=== PATIENT | male | born 1945 | race Caucasian/White ===

== ENCOUNTER 2016-12-20 05:12 | Inpatient (IN) | payer OTHER ==
[~2016-12-20] VITALS: Ht 177.8 cm; Wt 88.1 kg
[2016-12-20] VITALS (71 sets, daily range): BP systolic 87–179; BP diastolic 36–159; PULSE 64–96; TEMP 36.6–37.2; O2SAT 91–100; Ht 177.8 cm; Wt 88.1 kg
[2016-12-20] MEDS ORDERED: SODIUM CHLORIDE 0.9% 1000ML 1,000 ML IV STA (05:24)
[2016-12-20] MEDS ORDERED: ASPI81TA28 PO (05:35)
[2016-12-20] MEDS ORDERED: HYDR25TA4 PO (05:35)
[2016-12-20] MEDS ORDERED: ATEN50TA8 PO (05:35)
[2016-12-20] MEDS ORDERED: SIMV20TA2 PO (05:35)
[2016-12-20] MEDS ORDERED: ALLO300T2 PO (05:35)
[2016-12-20] MEDS ORDERED: LISI-461 PO (05:35)
[2016-12-20] MEDS ORDERED: ADENOSINE IV SOLN 3 MG/ML 2 ML VIAL ONE (05:42)
--- NOTE | 2016-12-20 05:45 | EMERGENCY ROOM VISIT NOTE ---
History Report prepared by Julius: Yasir Mendiola Under the Supervision of: Dr. Gem Hyde D.O. First contact with patient: 05:13 Chief Complaint: FALL Stated Complaint: FALL/SHORT OF BREATH History of Present Illness The patient is a 71 year old male who presents to the Emergency Room via [facility] with complaints of persistent shortness of breath that began yesterday. The patient states that he also began to experience vomiting, diarrhea, melena, and a cough yesterday as well. He denies any chest pain at this time. The patient does admit to drinking daily. His son notes that he is a heavy and frequent drinker as He was brought to the Emergency Department after multiple falling episodes this morning. Per nursing staff the patient fell out of bed and then fell again while attempting to use the restroom. He notes that he fell directly onto his back. He takes Baby Aspirin daily. 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 A total of 10 systems reviewed and were otherwise negative. Past Medical & Surgical Medical Problems: (1) Gout (2) HLD (hyperlipidemia) (3) HTN (hypertension) Surgical Problems: (1) Hx of colostomy Gout HLD (hyperlipidemia) HTN (hypertension) Family History Family history omitted secondary to age. Social History Drug Use: none Housing Status: lives alone Occupation Status: retired Current/Historical Medications Scheduled Allopurinol (Zyloprim), 300 MG PO DAILY Aspirin (Aspirin Ec), 81 MG PO DAILY Atenolol (Tenormin), 50 MG PO BID Hydrochlorothiazide (Hctz), 25 MG PO QAM Lisinopril (Lisinopril), 10 MG PO DAILY Simvastatin (Zocor), 20 MG PO QPM Allergies Coded Allergies: No Known Allergies (Unverified , 12/20/16) Physical Exam Vital Signs Date Time Temp Pulse Resp B/P (MAP) Pulse Ox O2 Delivery O2 Flow Rate FiO2 12/20/16 07:24 81 20 121/40 100 Nasal Cannula 4.0 12/20/16 06:47 77 12/20/16 06:32 36.1 12/20/16 06:31 127 29 116/102 98 Nasal Cannula 4.0 12/20/16 06:27 83/42 12/20/16 06:26 105 29 58/37 99 12/20/16 06:21 99/77 12/20/16 06:16 120/56 12/20/16 06:13 135/61 12/20/16 06:12 132 20 90 12/20/16 06:11 112/85 12/20/16 06:09 115/57 12/20/16 06:07 102/60 12/20/16 06:05 120/59 12/20/16 06:03 116/80 12/20/16 06:02 118/80 12/20/16 06:01 115/78 12/20/16 05:57 130/62 12/20/16 05:56 155/132 12/20/16 05:52 94/71 12/20/16 05:49 110/52 111/58 12/20/16 05:49 36.4 107 20 92 Room Air 12/20/16 05:47 136 12/20/16 05:42 137 24 96 Nasal Cannula 2.0 12/20/16 05:34 12/20/16 05:34 152 12/20/16 05:24 81/24 12/20/16 05:24 99 Physical Exam General: Appears in mild respiratory distress, slightly lethargic. HEENT: Head - normocephalic and atraumatic Pupils are equal, round, and reactive to light. Extraocular eye muscles are intact, and sclera are anicteric. Nose - moist nasal mucosa without discharge. Mouth - moist buccal mucosa. Oropharynx is nonerythematous and there is no tonsillar exudate or edema noted. Neck: Supple; no JVD, nuchal rigidity, cervical lymphadenopathy, or auscultated bruits. Heart: Regular rate and rhythm. There is a normal S1 and S2 with no murmurs, clicks, or gallops appreciated. Lungs: Breath sounds diminished in all weldon, with no wheezes, rales, or rhonchi. Abdomen: Soft, completely nontender, nondistended, with good bowel sounds. There are no palpable pulsatile masses or hepatosplenomegaly. There is no guarding, rigidity, or rebound noted. Extremities: The patient has an abrasion to the medial aspect of the right forearm. There is dried blood on the hands, mouth, legs. No evidence of cyanosis , clubbing, or edema. There are easily palpable peripheral pulses. Skin: warm, pale, and diaphoretic with good turgor and no rashes. Medical Decision & Procedures ER Provider Diagnostic Interpretation: Radiology results as stated below per my review: PORTABLE CHEST X-RAY: X-ray reveals no cardiomegaly, no pleural effusions. Laboratory Results 12/20/16 05:33 Red Blood Count 3.52, Mean Corpuscular Volume 94.3, Mean Corpuscular Hemoglobin 33.0, Mean Corpuscular Hemoglobin Concent 34.9, Mean Platelet Volume 10.8, Neutrophils (%) (Auto) 62.2, Lymphocytes (%) (Auto) 30.2, Monocytes (%) (Auto) 5.2, Eosinophils (%) (Auto) 1.2, Basophils (%) (Auto) 1.0, Neutrophils # (Auto) 5.73, Lymphocytes # (Auto) 2.78, Monocytes # (Auto) 0.48, Eosinophils # (Auto) 0.11, Basophils # (Auto) 0.09 12/20/16 05:33 Test 12/20/16 05:33 12/20/16 05:35 12/20/16 05:40 12/20/16 06:14 White Blood Count 9.21 K/uL (4.8-10.8) Red Blood Count 3.52 M/uL (4.7-6.1) Hemoglobin 11.6 g/dL (14.0-18.0) Hematocrit 33.2 % (42-52) Mean Corpuscular Volume 94.3 fL (80-100) Mean Corpuscular Hemoglobin 33.0 pg (25-34) Mean Corpuscular Hemoglobin Concent 34.9 g/dl (32-36) Platelet Count 129 K/uL (130-400) Mean Platelet Volume 10.8 fL (7.4-10.4) Neutrophils (%) (Auto) 62.2 % Lymphocytes (%) (Auto) 30.2 % Monocytes (%) (Auto) 5.2 % Eosinophils (%) (Auto) 1.2 % Basophils (%) (Auto) 1.0 % Neutrophils # (Auto) 5.73 K/uL (1.4-6.5) Lymphocytes # (Auto) 2.78 K/uL (1.2-3.4) Monocytes # (Auto) 0.48 K/uL (0.11-0.59) Eosinophils # (Auto) 0.11 K/uL (0-0.5) Basophils # (Auto) 0.09 K/uL (0-0.2) RDW Standard Deviation 52.2 fL (36.4-46.3) RDW Coefficient of Variation 15.3 % (11.5-14.5) Immature Granulocyte % (Auto) 0.2 % Immature Granulocyte # (Auto) 0.02 K/uL (0.00-0.02) Prothrombin Time 17.4 SECONDS (9.0-12.0) Prothromb Time International Ratio 1.6 (0.9-1.1) Activated Partial Thromboplast Time 28.4 SECONDS (21.0-31.0) Partial Thromboplastin Ratio 1.1 Estimated GFR () 43.2 Estimated GFR (Non- 37.3 BUN/Creatinine Ratio 19.6 (10-20) Calcium Level 9.3 mg/dl (8.5-10.1) Total Bilirubin 2.2 mg/dl (0.2-1) Direct Bilirubin 0.7 mg/dl (0-0.2) Aspartate Amino Transf (AST/SGOT) 53 U/L (15-37) Alanine Aminotransferase (ALT/SGPT) 28 U/L (12-78) Alkaline Phosphatase 56 U/L (45-117) Total Creatine Kinase 44 U/L (39-308) Creatine Kinase MB 1.6 ng/ml (0.5-3.6) Creatine Kinase MB Ratio 3.6 (0-3.0) Troponin I 0.098 ng/ml (0-0.045) Pro-B-Type Natriuretic Peptide 427 pg/ml (0-900) Total Protein 7.3 gm/dl (6.4-8.2) Albumin 2.7 gm/dl (3.4-5.0) Lipase 269 U/L (73-393) Bedside Hemoglobin 11.6 g/dl (14.0-18.0) Bedside Hematocrit 34 % (42-52) Bedside Sodium 136 mEq/L (135-144) Bedside Potassium 4.0 mEq/L (3.3-5.0) Bedside Chloride 91 mEq/L (101-112) Bedside Total CO2 30 mEq/l (24-31) Anion Gap 21.0 mmol/L (16-25) Bedside Blood Urea Nitrogen 39 mg/dl (7-18) Bedside Creatinine 1.4 mg/dl (0.6-1.3) Bedside Glucose (other) 127 mg/dl (70-99) Bedside Ionized Calcium (Nagi) 1.07 mmol/l (1.12-1.32) Bedside Lactic Acid Venous 8.24 mmol/L (0.90-1.70) Lactic Acid Level 8.9 mmol/L (0.4-2.0) Test 12/20/16 07:33 Laboratory results per my review. Medications Administered Medications (Trade) Dose Ordered Sig/Angy Route Start Time Stop Time Status Last Admin Dose Admin Sodium Chloride 1,000 ml @ 999 mls/hr Q1H1M STAT IV 12/20/16 05:24 12/20/16 06:24 DC 12/20/16 05:24 999 MLS/HR Adenosine (Adenosine IV) 18 mg STK-MED ONCE .ROUTE 12/20/16 05:42 12/20/16 05:43 DC 12/20/16 05:46 18 MG Diltiazem HCl (Cardizem Inj) 25 mg STK-MED ONCE .ROUTE 12/20/16 05:50 12/20/16 05:51 DC 12/20/16 05:55 25 MG Ondansetron HCl (Zofran Inj) 4 mg STK-MED ONCE .ROUTE 12/20/16 06:27 12/20/16 06:28 DC 12/20/16 06:27 4 MG Pantoprazole Sodium 40 mg/ Dextrose 110 ml @ 20 mls/hr Q5H IV 12/20/16 06:30 12/20/16 11:29 12/20/16 06:52 20 MLS/HR Procedure Medications Ordered: Sodium Chloride, Adenosine X 2, Cardizem, Zofran, Pantoprazole. ECG Indication: SOB/dyspnea Rate (beats per minute): 105 Rhythm: sinus tachycardia Findings: no acute ischemic change, no ectopy Change: Repeat EKG: Sinus Tachycardia 138, ST-segment depression laterally and inferiorly. Third EKG: NSR at 78, ST segment depression and T-wave inversions in the lateral leads. ED Course 0516: The patient was evaluated in room B9. A complete history and physical exam was performed. I received report from EMS. Nursing staff were obtaining a twelve-lead EKG and laboratory studies. A twelve-lead EKG was obtained as described above. 0523: While examining the patient his heart rhythm converted from a sinus tachycardia at 105 to a SVT at 140 beats per minute and the patient lost consciousness. He was moved to room B1. 0534: I discussed the case with the patient's son over the phone at this time. He is on his way to the hospital. 0542: (approximate timing) The patient was given 6 mg of Adenosine with no result. 0545: (approximate timing) the patient was given 12 mg of Adenosine which revealed an underlying Atrial Flutter. 0552: I ordered Versed 5 mg at this time in preparation for synchronized cardioversion 0556: The patient will undergo synchronized cardioversion at 100 Star. The patient is on both monitors. 0557: The patient's blood pressure came up nicely at this time on its own . Cardioversion will be held at this time. Rate has come down slightly as well. 0558: The patient will receive Cardizem now. 10 mg of Cardizem is being pushed now. 0603: The patient's POC without Lactic Acid resulted at 8.24 0604: Patient's blood pressure is 116/80, pulse 133 bpm. 0605: 10 more mg of Cardizem is being pushed now. 0622: The patient's HR is 100 and blood pressure is 115/82. 0623: The nurse identified that the patient's stool is heme positive at this time. 0623: The patient's Troponin resulted at 0.098. 0624: I discussed the case with the patient's son at bedside at this time. The patient also informed me on the specifics of his current symptoms. He states that the vomiting and diarrhea began yesterday and became black. He also experienced dizziness. This morning when he got out of bed he passed out. He developed the shortness of breath after passing out. 0625: The patient began to actively vomit at this time. I will order Zofran. 0627: Ordered Zofran mg IV. 0630: Ordered Pantoprazole 110 mL @ 20 mL/hr IV. 0636: I discussed the case with DrIvon STRONG Filtrose Crusher at this time. 0641: The patient spontaneously converted out of SVT at this time. 0644: The patient is in normal sinus rhythm at this time, he has no complaints of chest pain. 0655: I discussed the case with the Critical Care PA at this time. 0711: I discussed the case with Dr. Vamshi Aguilar. She will evaluate the patient for further treatment. The patient remains stable at this time. Medical Decision The patient is a 71 year old Male who presents to the Emergency Department for shortness of breath. Differential Diagnosis includes: Gastrointestinal bleed, hypotension, pneumonia , CHF, pulmonary embolism. I-STAT results were reviewed and show a Glucose of 127, BUN of 39, Creatinine of 1.4, and hemoglobin of 11.6. Laboratory Studies were reviewed and show; White count of 9.2, hemoglobin of 11.6, platelet count of 129, troponin of 0.09, lipase of 269, total bilirubin of 2.2, direct bilirubin of 0.7, AST of 53, ALT 28, Glucose of 130, and INR of 1.6 The patient developed nausea, vomiting, and diarrhea yesterday. He then noted that his diarrhea was dark in color and his vomit was [id number]. He denies ever having GI bleeding like this in the past. He does admit to daily alcohol use and aspirin use. The patient presented in a normal sinus rhythm with stable blood pressure. He quickly developed atrial flutter with a rapid ventricular response and episodes of hypotension. This seemed to be corrected nicely with normal saline bolus. Cardizem seemed to control the patient's rate. He then spontaneously converted back to normal sinus rhythm. The patient was placed on a Protonix drip. I discussed the case with the engineering professor and the hospitalist and he will be cared for in the ICU. Consults Time Called: 06 Consulting Physician: Dr. Adrian STRONG Filtrose Crusher Returned Call: 0636 I discussed the case with Dr. Adrian STRONG Filtrose Crusher at this time. Additional Consults: Time Called: 07 Returned Call: 0711 Additional Comments: I discussed the case with Dr. Vamshi Aguilar. She will evaluate the patient for further treatment. Impression Primary Impression: GI bleed Additional Impression: Atrial flutter with rapid ventricular response Critical Care I have personally spent greater than 90 minutes of critical care time in the direct management of this patient. This includes bedside care, interpretation of diagnostic studies, and testing, discussion with consultants, patient, and family members, and other required patient management activities. This 90 minutes is in excess of all separately billable procedures. Scribe Attestation The scribe's documentation has been prepared under my direction and personally reviewed by me in its entirety. I confirm that the note above accurately reflects all work, treatment, procedures, and medical decision making performed by me. Departure Information Dispostion Being Evaluated By Hospitalist Patient Instructions My [facility] Problem Qualifiers
[2016-12-20] MEDS ORDERED: DILTIAZEM HCL 5 MG/ML 5 ML VIAL ONE (05:50)
[2016-12-20 05:51] LABS: BASO ABS # 0.09 K/uL (0-0.2); COMPLETE YES; EOS % 1.2 %; HEMATOCRIT 33.2 % (42-52); IG% 0.2 %; LYMPH % 30.2 %; LYMPH ABS # 2.78 K/uL (1.2-3.4); MEAN CELL VOLUME 94.3 fL (80-100); MEAN CORPUSCULAR HGB CONC 34.9 g/dl (32-36); MEAN PLATELET VOLUME 10.8 fL (7.4-10.4); MONO % 5.2 %; NEUT % 62.2 %; PLATELET COUNT 129 K/uL (130-400); RED BLOOD COUNT 3.52 M/uL (4.7-6.1); WHITE BLOOD COUNT 9.21 K/uL (4.8-10.8)
[2016-12-20] MEDS ORDERED: MIDAZOLAM HCL 5 MG/ML 2ML VIAL ONE (05:52)
[2016-12-20] MEDS ORDERED: RAPID SEQUENCE INDUCTION BAG ONE (05:54)
[2016-12-20 05:55] LABS: INR 1.6 (0.9-1.1); PARTIAL THROMBOPLASTIN RATIO 1.1; PROTHROMBIN TIME (PATIENT) 17.4 SECONDS (9.0-12.0)
[2016-12-20 06:05] LABS: ALT/SGPT 28 U/L (12-78); BLOOD UREA NITROGEN 35 mg/dl (7-18); BUN/CREATININE RATIO 19.6 (10-20); CALCIUM 9.3 mg/dl (8.5-10.1); CARBON DIOXIDE 27 mmol/L (21-32); CHLORIDE 93 mmol/L (98-107); GLUCOSE 130 mg/dl (70-99); SODIUM 137 mmol/L (136-145)
[2016-12-20 06:14] LABS: ISTAT CREATININE 1.4 mg/dl (0.6-1.3); ISTAT HEMOGLOBIN 11.6 g/dl (14.0-18.0); ISTAT IONIZED CALCIUM 1.07 mmol/l (1.12-1.32)
[2016-12-20 06:25] LABS: ALKALINE PHOSPHATASE 56 U/L (45-117); AST/SGOT 53 U/L (15-37); CKMB/CK RATIO 3.6 (0-3.0)
[2016-12-20] MEDS ORDERED: ONDANSETRON INJ 2 MG/ML 2 ML VIAL ONE ×2 (06:27→19:15)
--- NOTE | 2016-12-20 06:27 | DIAGNOSTIC IMAGING REPORT ---
CHEST ONE VIEW PORTABLE CLINICAL HISTORY: sob/cough dyspnea COMPARISON STUDY: No previous studies for comparison. FINDINGS: The bones soft tissues and hemidiaphragms are normal. The cardiomediastinal silhouette is normal. The lungs are clear. The pulmonary vasculature is normal. IMPRESSION: Negative chest. Electronically signed by: Cholo Aparicio M.D. 12/20/2016 6:26 AM Dictated Date/Time: 12/20/2016 6:25 AM
[2016-12-20] MEDS ORDERED: PANTOprazole INJ 40 MG in DEXTROSE 5% 100ML 100 ML IV SCH (06:30)
--- NOTE | 2016-12-20 07:31 | Critical Care Consultation ---
Critical Care Consultation Date of Consultation: Dec 20, 2016. Attending Physician: Reason for Consultation: GI Bleed History of Present Illness Apolinar Maya is a 71yo Male who presents to the [facility] after calling 911 status post loss of consciousness while using the restroom. He states that yesterday he began feeling nauseous and vomiting; later began having diarrhea. Throughout the day the vomit and diarrhea became dark black. While he was able to rest through the night he awoke to use the restroom this morning and again began vomiting and experiencing dark black stool. During this period of time he states that he passed out and when he awoke called 911. Patient's past medical history is limited secondary to no prior visits to [facility]. He states that he is treated by Dr. Benitez in the [facility] area. Patient does inform me that approximately 10 years ago he was diagnosed with colon cancer and underwent partial colectomy; to which he has an abdominal vertical incision with what appears to be a small hernia. He has had colonoscopies every 2-3 years since with no findings. He states that during the diagnoses of cancer he believes he had an EGD with no findings. He recalls years ago having some stomach ulcers; but is not currently on any treatment or experiencing symptoms currently. Patient is a heavy drinker and drinks daily. While in the emergency department patient appeared to lose consciousness and was noted to be in what appeared to be supraventricular tachycardia. Adenosine was given in preparation for cardioversion as patient's blood pressures dropped. With heart rate slowing it was noted patient was in new A. fib RVR and he was given Cardizem. Cardioversion was not needed as patient's blood pressure rebounded and he ultimately flipped into normal sinus rhythm. Patient had home medications with him during my exam. Notably he takes a beta bhupendra, ABBY inhibitor, statin, and hydrochlorothiazide. Patient denies previous history of MD, stroke, A. fib, diabetes, or kidney disease. He believes that Dr. Benitez gave him the medications listed here secondary to a complaint of chest pain years ago. He and his son do not believe he has ever had a heart attack or a cardiac catheterization. Patient complains of chills and shortness of breath. He does state that during his episodes of vomiting the night before he was feverish and diaphoretic; neither of which does he experience now. He denies dizziness, lightheadedness, headache or change of vision. He denies cough or history of COPD/emphysema. Patient denies current nausea, upset stomach. Change in bowel habits as listed above. No change in bladder habits. He denies numbness or tingling of any extremities. Family History Noncontributory Social History Smoking Status: Former Smoker Smokeless Tobacco Use: No Alcohol Use: heavy (Drinks Daily) Drug Use: none Housing Status: lives alone (Son is next door neighbor. ) Occupation Status: retired Allergies Coded Allergies: No Known Allergies (Unverified , 12/20/16) Home Medications Scheduled Allopurinol (Zyloprim), 300 MG PO DAILY Aspirin (Aspirin Ec), 81 MG PO DAILY Atenolol (Tenormin), 50 MG PO BID Hydrochlorothiazide (Hctz), 25 MG PO QAM Lisinopril (Lisinopril), 10 MG PO DAILY Simvastatin (Zocor), 20 MG PO QPM Current Inpatient Medications Current Inpatient Medications Medications (Trade) Dose Ordered Sig/Angy Route Start Time Stop Time Status Last Admin Dose Admin Pantoprazole Sodium 40 mg/ Dextrose 110 ml @ 20 mls/hr Q5H IV 12/20/16 06:30 12/20/16 11:29 12/20/16 06:52 20 MLS/HR Review of Systems 12 systems reviewed and negative other than previously mentioned in the HPI. Physical Exam Date Time Temp Pulse Resp B/P (MAP) Pulse Ox O2 Delivery O2 Flow Rate FiO2 12/20/16 06:47 77 12/20/16 06:32 36.1 12/20/16 06:31 127 29 116/102 98 Nasal Cannula 4.0 12/20/16 06:27 83/42 12/20/16 06:26 105 29 58/37 99 12/20/16 06:21 99/77 12/20/16 06:16 120/56 12/20/16 06:13 135/61 12/20/16 06:12 132 20 90 12/20/16 06:11 112/85 12/20/16 06:09 115/57 12/20/16 06:07 102/60 12/20/16 06:05 120/59 12/20/16 06:03 116/80 12/20/16 06:02 118/80 12/20/16 06:01 115/78 12/20/16 05:57 130/62 12/20/16 05:56 155/132 12/20/16 05:52 94/71 12/20/16 05:49 110/52 111/58 12/20/16 05:49 36.4 107 20 92 Room Air 12/20/16 05:47 136 12/20/16 05:42 137 24 96 Nasal Cannula 2.0 12/20/16 05:34 12/20/16 05:34 152 12/20/16 05:24 81/24 12/20/16 05:24 99 Vital Signs - as noted Laboratory Data - as noted Physical Exam: General - NAD, appears chilled wrapped in a multitude of blankets and shivering Eyes - PERRL, EOMI No icterus, gaze conjugate ENT - Mucosa dry, oral cavity covered in dried blood, no lesions or candidiasis Neck - Supple, trachea midline, no masses or lymphadenopathy, no JVD or bruits Lungs - No paradoxical chest wall movement, coarse breath sounds to the bases bilaterally with wheezing noted to the right lung weldon.No rales, or rhonchi Heart - Reg rate and rhythm, No murmur, rubs, clicks, or gallops appreciated Abdomen - BS Absent, no bruits noted, tympanic to percussion, soft, nontender, nondistended, no organomegaly, 5" vertical incision with small hernia noted Extremities - No edema, pedal pulses intact Neuro - A&O X 4 Strength extremities equal and appropriate bilaterally Reflexes: normal and equal CN:PERRL, EOMI, no facial asymmetry, uvula/tongue midline, no unilateral neuro findings Laboratory Results Last 24 Hours Test 12/20/16 05:33 12/20/16 05:35 12/20/16 05:40 12/20/16 06:14 White Blood Count 9.21 K/uL Red Blood Count 3.52 M/uL Hemoglobin 11.6 g/dL Hematocrit 33.2 % Mean Corpuscular Volume 94.3 fL Mean Corpuscular Hemoglobin 33.0 pg Mean Corpuscular Hemoglobin Concent 34.9 g/dl Platelet Count 129 K/uL Mean Platelet Volume 10.8 fL Neutrophils (%) (Auto) 62.2 % Lymphocytes (%) (Auto) 30.2 % Monocytes (%) (Auto) 5.2 % Eosinophils (%) (Auto) 1.2 % Basophils (%) (Auto) 1.0 % Neutrophils # (Auto) 5.73 K/uL Lymphocytes # (Auto) 2.78 K/uL Monocytes # (Auto) 0.48 K/uL Eosinophils # (Auto) 0.11 K/uL Basophils # (Auto) 0.09 K/uL RDW Standard Deviation 52.2 fL RDW Coefficient of Variation 15.3 % Immature Granulocyte % (Auto) 0.2 % Immature Granulocyte # (Auto) 0.02 K/uL Prothrombin Time 17.4 SECONDS Prothromb Time International Ratio 1.6 Activated Partial Thromboplast Time 28.4 SECONDS Partial Thromboplastin Ratio 1.1 Sodium Level 137 mmol/L Potassium Level 4.0 mmol/L Chloride Level 93 mmol/L Carbon Dioxide Level 27 mmol/L Anion Gap 17.0 mmol/L 21.0 mmol/L Blood Urea Nitrogen 35 mg/dl Creatinine 1.80 mg/dl Estimated GFR () 43.2 Estimated GFR (Non- 37.3 BUN/Creatinine Ratio 19.6 Random Glucose 130 mg/dl Calcium Level 9.3 mg/dl Total Bilirubin 2.2 mg/dl Direct Bilirubin 0.7 mg/dl Aspartate Amino Transf (AST/SGOT) 53 U/L Alanine Aminotransferase (ALT/SGPT) 28 U/L Alkaline Phosphatase 56 U/L Total Creatine Kinase 44 U/L Creatine Kinase MB 1.6 ng/ml Creatine Kinase MB Ratio 3.6 Troponin I 0.098 ng/ml Pro-B-Type Natriuretic Peptide 427 pg/ml Total Protein 7.3 gm/dl Albumin 2.7 gm/dl Lipase 269 U/L Bedside Hemoglobin 11.6 g/dl Bedside Hematocrit 34 % Bedside Sodium 136 mEq/L Bedside Potassium 4.0 mEq/L Bedside Chloride 91 mEq/L Bedside Total CO2 30 mEq/l Bedside Blood Urea Nitrogen 39 mg/dl Bedside Creatinine 1.4 mg/dl Bedside Glucose (other) 127 mg/dl Bedside Ionized Calcium (Nagi) 1.07 mmol/l Bedside Lactic Acid Venous 8.24 mmol/L Lactic Acid Level 8.9 mmol/L Diagnostic Results CHEST ONE VIEW PORTABLE CLINICAL HISTORY: sob/cough dyspnea COMPARISON STUDY: No previous studies for comparison. FINDINGS: The bones soft tissues and hemidiaphragms are normal. The cardiomediastinal silhouette is normal. The lungs are clear. The pulmonary vasculature is normal. IMPRESSION: Negative chest. Electronically signed by: Cholo Aparicio M.D. 12/20/2016 6:26 AM Dictated Date/Time: 12/20/2016 6:25 AM Assessment & Plan (1) GI bleed (2) Atrial flutter with rapid ventricular response (3) HTN (hypertension) (4) HLD (hyperlipidemia) Reason Critically Ill: Patient is an 71-year-old male who is transferred to the ICU for gastrointestinal bleeding. PLAN: GI/Nutrition: * Protonix drip * Follow Coagulation * Type and Cross * Consult GI Neuro: * No Current Findings * Monitor for changes Resp: * Supplemental oxygen as required * On 4L nasal cannula currently, adequate saturations CV: * A. Fib RVR in ED now converted * Monitor on Telemetry * Elevated Troponin, Trend * Continue home medications Fluids/Renal: * Possible HAYLEY: Cr 1.4 (Unknown Baseline) * Continue NSS @ 100 * Monitor labs & Electrolytes ID: * Afebrile * WBC: 9.21 * Lactic 8.9 * Obtain Procalcitonin Heme: * 11.6/34 * Plts: 129 * Coags: 17.4/1.6 Aptt 28.4 Endocrine: * Accu-Checks per protocol, started insulin infusion for 2 blood sugars greater than 180 * No Known Diagnosis of DM or Thyroid Dz * Check TSH this admission in setting of new onset A. Fib RVR CCT: 35 Minutes; This time is exclusive of all separately billable procedures. Thank you for involving us in the care of this patient. Please refer to Dr. Luis Campbell's addendum for further recommendations. I have personally evaluated and examined this patient. I agree with assessment and plan of Rosie Bermudez PA-C. PLAN: Neuro: At high risk for withdrawal, empiric Librium, drinks several bottles of beer daily reports he has gone 5 days without alcohol consumption approximately 1-2 months ago, denies history of withdrawals Resp: History of tobacco abuse, nebs and O2 as needed CV: A. fib A flutter with RVR, currently weight rate controlled adequate blood pressure. Continue resuscitation Fluids/Renal: Maintenance fluids at 75, will be getting additional medication and additional fluids. ID: Rocephin prophylaxis for possible variceal bleeding GI/Nutrition: Gastroenterology consulted, octreotide PPI infusions Heme: Acute blood loss anemia, holding blood transfusion at this point his hemoglobin greater than 10, checking H&H every 6 Endocrine: TSH within normal limits, Accu-Cheks per protocol
[2016-12-20] MEDS ORDERED: MECLIZINE HCL 25 MG TAB PO STA (07:45)
[2016-12-20] MEDS ORDERED: LORAZEPAM 2 MG/ML 1 ML VIAL IV PRN (08:30)
[2016-12-20] MEDS ORDERED: OCTREOTIDE IV BOLUS & DRIP IV STA (08:39)
[2016-12-20] MEDS ORDERED: SODIUM CHLORIDE 0.9% 1000ML 1,000 ML IV SCH (08:45)
[2016-12-20] MEDS ORDERED: METOPROLOL TARTRATE 1 MG/ML VIAL IV PRN (08:45)
--- NOTE | 2016-12-20 09:01 | History and Physical ---
History & Physical Date & Time of Service: Dec 20, 2016 at 08:40 Chief Complaint: Fall/Short Of Breath Primary Care Physician: Luis Eduardo Benitez M.D. History of Present Illness Source: patient, family Mr. Maya is a 71 y/o male with PMHx of ETOH Abuse, HTN, HLD, S/P Colon Resection (denies cancer?), and possible H/O PUD who presents to the ED by EMS with persistent SOB and melena/hemoptysis. He reports symptoms began yesterday with nausea, vomiting, diarrhea. Reporting emesis and BMs nearly every other hour. Reporting black emesis and stool. He states he has never had anything like this before. Think he did have a gastric ulcer in the past but could not give details. Also is S/P partial colon resection (approx. 10-12 years ago) due to question of CA but he states it was non-cancerous. States he has regularly colonoscopies for monitoring. He reports with frequent emesis and diarrhea he developed generalized fatigue and SOB. This AM, he reports that he fell out of bed and then tried to ambulate to the bathroom and had a syncopal episode. Patient has a long history of ETOH use with drinking 4-5 "bottles" beer a day. He takes a baby ASA daily but denies other NSAID use. He denies blood thinners. He denies a cardiac history except for HTN. He follows with Dr. Benitez. In the ED, patient was initially stable but developed an A Flutter with RVR which converted to SVT at rates on 160-170s. Rhythm was treated with Adenosine and Cardizem and was hypotensive. Patient was prepared for cardioversion but spontaneously converted to NSR and is currently in this rhythm and maintaining an adequate BP. Hgb 11.6. Lactate 8.9. INR 1.6 and platelets 129. Cr. 1.8. AST 53 and T bili 2.2. Patient will be admitted to ICU for GI bleed. Past Medical/Surgical History Medical Problems: (1) Gout Status: Chronic (2) HLD (hyperlipidemia) Status: Chronic (3) HTN (hypertension) Status: Chronic Surgical Problems: (1) Hx of colostomy Status: Resolved Family History Hypertension Social History Smoking Status: Current Every Day Smoker (1 ppd) Smokeless Tobacco Use: No Alcohol Use: heavy (Drinks Daily - 4-5 bottles of beer) Drug Use: none Occupational Status: retired Allergies Coded Allergies: No Known Allergies (Unverified , 12/20/16) Home Medications Scheduled Allopurinol (Zyloprim), 300 MG PO DAILY Aspirin (Aspirin Ec), 81 MG PO DAILY Atenolol (Tenormin), 50 MG PO BID Hydrochlorothiazide (Hctz), 25 MG PO QAM Lisinopril (Lisinopril), 10 MG PO DAILY Simvastatin (Zocor), 20 MG PO QPM Review of Systems Constitutional: + weakness (generalized), + fatigue, No fever, No chills Eyes: No worsening of vision Respiratory: + shortness of breath, + hemoptysis, No cough Cardiovascular: No chest pain, No palpitations Abdomen: + nausea (RESOLVED), + vomiting, + diarrhea, + GI bleeding, No pain Musculoskeletal: No swelling, No calf pain Genitourinary - Male: No dysuria Neurologic: + problem reported (fall x 1 and syncopal episode x 1) Psychiatric: + substance abuse (ETOH) Integumentary: No rash Physical Exam Vital Signs Date Time Temp Pulse Resp B/P (MAP) Pulse Ox O2 Delivery O2 Flow Rate FiO2 12/20/16 08:02 71 20 136/53 98 Nasal Cannula 4.0 12/20/16 07:55 74 20 140/52 12/20/16 07:24 81 20 121/40 100 Nasal Cannula 4.0 12/20/16 06:47 77 12/20/16 06:32 36.1 12/20/16 06:31 127 29 116/102 98 Nasal Cannula 4.0 12/20/16 06:27 83/42 12/20/16 06:26 105 29 58/37 99 12/20/16 06:21 99/77 12/20/16 06:16 120/56 12/20/16 06:13 135/61 12/20/16 06:12 132 20 90 12/20/16 06:11 112/85 12/20/16 06:09 115/57 12/20/16 06:07 102/60 12/20/16 06:05 120/59 12/20/16 06:03 116/80 12/20/16 06:02 118/80 12/20/16 06:01 115/78 12/20/16 05:57 130/62 12/20/16 05:56 155/132 12/20/16 05:52 94/71 12/20/16 05:49 110/52 111/58 12/20/16 05:49 36.4 107 20 92 Room Air 12/20/16 05:47 136 12/20/16 05:42 137 24 96 Nasal Cannula 2.0 12/20/16 05:34 12/20/16 05:34 152 12/20/16 05:24 81/24 12/20/16 05:24 99 General Appearance: WD/WN, no apparent distress Head: normocephalic, atraumatic Eyes: sclerae normal ENT: hearing grossly normal, + pertinent finding (dried blood in mouth and lips ; oral mucosa dry) Neck: supple, no JVD, trachea midline Respiratory/Chest: no respiratory distress, no accessory muscle use, + pertinent finding (course breath sounds) Cardiovascular: regular rate, rhythm, no gallop, + systolic murmur Abdomen/GI: non tender, soft, + abnormal bowel sounds (hypoactive), + distended (mildly), + pertinent finding (negative caput medusa; midline surgical incision well-approximated) Extremities/Musculoskelatal: no calf tenderness, no pedal edema Neurologic/Psych: alert, oriented x 3 Skin: warm/dry Diagnostics Laboratory Results Results Past 24 Hours Test 12/20/16 05:33 12/20/16 05:35 12/20/16 05:40 12/20/16 06:14 Range/Units White Blood Count 9.21 4.8-10.8 K/uL Red Blood Count 3.52 4.7-6.1 M/uL Hemoglobin 11.6 14.0-18.0 g/dL Hematocrit 33.2 42-52 % Mean Corpuscular Volume 94.3 80-100 fL Mean Corpuscular Hemoglobin 33.0 25-34 pg Mean Corpuscular Hemoglobin Concent 34.9 32-36 g/dl Platelet Count 129 130-400 K/uL Mean Platelet Volume 10.8 7.4-10.4 fL Neutrophils (%) (Auto) 62.2 % Lymphocytes (%) (Auto) 30.2 % Monocytes (%) (Auto) 5.2 % Eosinophils (%) (Auto) 1.2 % Basophils (%) (Auto) 1.0 % Neutrophils # (Auto) 5.73 1.4-6.5 K/uL Lymphocytes # (Auto) 2.78 1.2-3.4 K/uL Monocytes # (Auto) 0.48 0.11-0.59 K/uL Eosinophils # (Auto) 0.11 0-0.5 K/uL Basophils # (Auto) 0.09 0-0.2 K/uL RDW Standard Deviation 52.2 36.4-46.3 fL RDW Coefficient of Variation 15.3 11.5-14.5 % Immature Granulocyte % (Auto) 0.2 % Immature Granulocyte # (Auto) 0.02 0.00-0.02 K/uL Prothrombin Time 17.4 9.0-12.0 SECONDS Prothromb Time International Ratio 1.6 0.9-1.1 Activated Partial Thromboplast Time 28.4 21.0-31.0 SECONDS Partial Thromboplastin Ratio 1.1 Sodium Level 137 136-145 mmol/L Potassium Level 4.0 3.5-5.1 mmol/L Chloride Level 93 98-107 mmol/L Carbon Dioxide Level 27 21-32 mmol/L Anion Gap 17.0 21.0 16-25 mmol/L Blood Urea Nitrogen 35 7-18 mg/dl Creatinine 1.80 0.60-1.40 mg/dl Estimated GFR () 43.2 Estimated GFR (Non- 37.3 BUN/Creatinine Ratio 19.6 10-20 Random Glucose 130 70-99 mg/dl Calcium Level 9.3 8.5-10.1 mg/dl Total Bilirubin 2.2 0.2-1 mg/dl Direct Bilirubin 0.7 0-0.2 mg/dl Aspartate Amino Transf (AST/SGOT) 53 15-37 U/L Alanine Aminotransferase (ALT/SGPT) 28 12-78 U/L Alkaline Phosphatase 56 45-117 U/L Total Creatine Kinase 44 39-308 U/L Creatine Kinase MB 1.6 0.5-3.6 ng/ml Creatine Kinase MB Ratio 3.6 0-3.0 Troponin I 0.098 0-0.045 ng/ml Pro-B-Type Natriuretic Peptide 427 0-900 pg/ml Total Protein 7.3 6.4-8.2 gm/dl Albumin 2.7 3.4-5.0 gm/dl Lipase 269 73-393 U/L Bedside Hemoglobin 11.6 14.0-18.0 g/dl Bedside Hematocrit 34 42-52 % Bedside Sodium 136 135-144 mEq/L Bedside Potassium 4.0 3.3-5.0 mEq/L Bedside Chloride 91 101-112 mEq/L Bedside Total CO2 30 24-31 mEq/l Bedside Blood Urea Nitrogen 39 7-18 mg/dl Bedside Creatinine 1.4 0.6-1.3 mg/dl Bedside Glucose (other) 127 70-99 mg/dl Bedside Ionized Calcium (Nagi) 1.07 1.12-1.32 mmol/l Bedside Lactic Acid Venous 8.24 0.90-1.70 mmol/L Thyroid Stimulating Hormone (TSH) 2.750 0.300-4.500 uIu/ml Lactic Acid Level 8.9 0.4-2.0 mmol/L Test 12/20/16 08:20 Range/Units Microbiology Results 12/20/16 Blood Culture, Received Pending 12/20/16 Blood Culture, Received Pending Diagnostic Radiology CHEST ONE VIEW PORTABLE CLINICAL HISTORY: sob/cough dyspnea COMPARISON STUDY: No previous studies for comparison. FINDINGS: The bones soft tissues and hemidiaphragms are normal. The cardiomediastinal silhouette is normal. The lungs are clear. The pulmonary vasculature is normal. IMPRESSION: Negative chest. EKG Poor data quality, interpretation may be adversely affected Normal sinus rhythm ST & T wave abnormality, consider inferior ischemia ST & T wave abnormality, consider anterolateral ischemia Abnormal ECG When compared with ECG of 20-DEC-2016 05:40, (unconfirmed) Vent. rate has decreased BY 60 BPM QRS duration has decreased ST no longer depressed in Inferior leads ST no longer depressed in Anterolateral leads Impression Assessment and Plan Mr. Maya is a 71 y/o male with PMHx of ETOH Abuse, HTN, HLD, S/P Colon Resection (denies cancer?), and possible H/O PUD who presents to the ED by EMS with persistent SOB and melena/hemoptysis. Acute Blood Loss Anemia 2/2 Hemoptysis and Melena: Concern for Varices vs Ulcer - Hemoglobin at 11.6 acutely but anticipate this will drop - was hypotensive but likely related to cardiac rhythm - Mildly low platelets with elevated INR not on blood thinners - Octreotide and Protonix bolus/gtt - Serial H&H with type/cross - blood transfusion consent obtained - Ceftriaxone 2 g IV daily - Consult GI - discussed case with Dr. Mi -- Will initiated Octreotide, PPI, and possible scope later today A. Flutter with RVR and SVT: RESOLVED - Currently NSR - Received Adenosine and Cardizem with conversion without need for cardioversion Elevated Troponin: - Likely demand ischemia from SVT/A Flutter RVR and acute blood loss - Serial troponins Elevated Lactic Acid: - 8.9 and trend Possible HAYLEY: Unknown baseline - Hydrate with NSS at 100 mL/hr and monitor ETOH Abuse: - AWSS protocol with daily banana bag, Librium, PRN Ativan - Acute hepatitis panel and current ETOH level HTN: - Hold home medication of Lisinopril, Atenolol, and HCTZ - Metoprolol IV PRN for rebound HLD: - Hold simvastatin DVT Prophylaxis: FRANC/SCDS Code Status: FULL RESUSCITATION Disposition: Monitor in ICU - discussed case with Dr. Campbell and Dr. Mi - Possible scope later today - plan for blood transfusion if necessary - services mgr consult - when not critical will place PT/OT evaluations Level of Care Critical Care Resuscitation Status FULL RESUSCITATION VTE Prophylaxis VTE Risk Assessment Done? Y/N: Yes Risk Level: Moderate Given or contraindicated: TKunal Stockings, SCD's Reviewed: Pt Seen/Exam by Me History Pt is s/p EGD. He is not giving much information right now as he just returned from the OR. Unable to obtain ROS/HPI given anesthesia General Appearance: WD/WN, no apparent distress Respiratory: normal breath sounds, no respiratory distress Cardiovascular: normal peripheral pulses, regular rate, rhythm Gastrointestinal: non tender, soft Extremities: non-tender, no pedal edema Neurologic/Psychiatric: alert (to name, opens eyes and moving UE) Skin Characteristics: normal color, warm/dry Assessment/Plan Agree with plan as outlined above EGD noted for acute gastritis and nonbleeding erosions, LA grade B esophagitis Ongoing PPI, octreotide Clears as tolerated Following trops INR elevated
[2016-12-20] MEDS ORDERED: OCTREOTIDE ACETATE INJ 100 MCG in SYRINGE 9 ML IV SCH (09:15)
[2016-12-20] MEDS: NORMOSOL R 1,000 ML IV SCH (09:37)
[2016-12-20] MEDS ORDERED: MULTI-VITAMIN INFUSION INJ 10 ML, THIAMINE HCL INJ 100 MG, FoLIC ACID INJ 1 MG in SODIU... IV SCH (10:00)
[2016-12-20 10:15] LABS: ESTIMATED AVERAGE GLUCOSE 94 mg/dl; HA1C FLAG Normal (Normal)
[2016-12-20] MEDS: OCTREOTIDE ACETATE INJ 500 MCG in NSS 100ML IV SCH ×2 (11:31→21:40)
[2016-12-20] MEDS: CEFTRIAXONE SOD INJ 2000 MG in DEXTROSE 5% 50ML IV SCH (11:31)
[2016-12-20] MEDS: CHLORDIAZEPOXIDE 25MG 1ST DOSE PO SCH ×3 (11:32→23:25)
[2016-12-20] MEDS: PANTOprazole INJ 40 MG in DEXTROSE 5% 100ML 100 ML IV SCH ×4 (12:00→21:16)
[2016-12-20 12:19] LABS: HEMATOCRIT 28.6 % (42-52)
--- NOTE | 2016-12-20 14:08 | DIAGNOSTIC IMAGING REPORT ---
(LIVER) ABDOMEN LIMITED HISTORY:71 yearsMaleEvaluate for Cirrhosis . Patient states history of prior cholecystectomy. COMPARISON: Chest radiograph 12/20/2016. TECHNIQUE: Multiple real-time sonographic images of the abdominal right upper quadrant were obtained assessing grayscale appearance, color and spectral Doppler flow. FINDINGS: The pancreas is obscured by overlying bowel gas. Hepatic parenchyma is mildly heterogeneous which is nonspecific. No definite surface nodularity is seen. No abdominal ascites is identified. There is a circumscribed thin-walled hypoechoic structure within the right hepatic lobe, 1.2 x 1.1 x 1.2 cm without internal vascularity and slight increased through transmission suggesting cyst. No suspicious masses are seen throughout the liver. Gallbladder is not seen and likely surgically absent. No biliary ductal dilatation. Common bile duct measures 0.5 cm. Hepatopedal flow is seen within the portal vein. Images of the right kidney appear unremarkable. IMPRESSION: 1. Nonspecific mildly heterogeneous hepatic parenchyma without abdominal ascites identified. 2. Pancreas obscured by bowel gas. 3. Surgically absent gallbladder. 4. No biliary ductal dilatation. The above report was generated using voice recognition software. It may contain grammatical, syntax or spelling errors. Electronically signed by: Hugo Logan 12/20/2016 2:06 PM Dictated Date/Time: 12/20/2016 2:01 PM
[2016-12-20] MEDS ORDERED: THIAMINE HCL INJ 200 MG in SODIUM CHLORIDE 0.9% 50ML 50 ML IV ONE (15:15)
[2016-12-20] MEDS ORDERED: FENTANYL CITRATE INJ 50 MCG/1 ML 2 ML VIAL ONE (17:28)
[2016-12-20] MEDS ORDERED: MIDAZOLAM HCL 1 MG/ML 2ML VIAL ONE (17:28)
[2016-12-20] MEDS ORDERED: LIDOCAINE HCL 2% 2 ML VIAL (20MG/ML) ONE (17:30)
[2016-12-20] MEDS ORDERED: PROPOFOL IV EMULSION 10 MG/ML 20 ML VIAL IV ONE (17:30)
[2016-12-20] MEDS ORDERED: SUCCINYLCHOLINE CHLORIDE 20 MG/ML 10 ML VIAL IV ONE (17:30)
--- NOTE | 2016-12-20 17:33 | History & Physical Bridge Note ---
H&P Re-Evaluation Bridge Note: I have examined the patient, reviewed the History & Physical and in the interval since the performance of the History & Physical I have noted the following changes of clinical significance melena/hematemesis; with 15# wt loss; epigastric distress using peptoBismul for several weeks AA)x3; Nl s1s2 Lungs CTA Abd soft NT/ND + Bs - CCE plan for EGD in OR with gen anesthesia: No changes noted
[2016-12-20] MEDS ORDERED: EpHEDrine SULFATE 50MG/5ML SYR ONE (18:13)
[2016-12-20] MEDS ORDERED: PHENYLEPHRINE 100MCG/ML 5ML SYR ONE (18:13)
[2016-12-20] MEDS ORDERED: EpHEDrine SULFATE INJ 50 MG/ML AMP IV PRN (18:30)
[2016-12-20] MEDS ORDERED: FLUMAZENIL 0.1 MG/1 ML 10 ML VIAL IV PRN (18:30)
[2016-12-20] MEDS ORDERED: PROMETHAZINE HCL INJ 12.5 MG in SODIUM CHLORIDE 0.9% 50ML 50 ML IV PRN (18:30)
[2016-12-20] MEDS ORDERED: ONDANSETRON INJ 2 MG/ML 2 ML VIAL IV PRN (18:30)
[2016-12-20] MEDS ORDERED: LABETALOL HCL IV 5 MG/ML 20ML IV PRN (18:30)
[2016-12-20] MEDS ORDERED: NALOXONE HCL 0.4 MG/1 ML VIAL/CARP IV PRN (18:30)
[2016-12-20] MEDS ORDERED: FENTANYL CITRATE INJ 50 MCG/1 ML 2 ML VIAL IV PRN (18:30)
[2016-12-20] MEDS ORDERED: ATROPINE SULFATE 0.1 MG/ML 5ML SYR IV PRN (18:30)
--- NOTE | 2016-12-20 18:46 | GI REPORT ---
Procedure Date: 12/20/2016 5:43 PM Procedure: Upper GI endoscopy Indications: Coffee-ground emesis, Hematemesis, Melena Medicines: General Anesthesia Complications: No immediate complications. Estimated blood loss: Minimal. Estimated Blood Loss: Estimated blood loss was minimal. Procedure: Pre-Anesthesia Assessment: - Prior to the procedure, a History and Physical was performed, and patient medications and allergies were reviewed. The patient's tolerance of previous anesthesia was also reviewed. The risks and benefits of the procedure and the sedation options and risks were discussed with the patient. All questions were answered, and informed consent was obtained. Prior Anticoagulants: The patient has taken no previous anticoagulant or antiplatelet agents. ASA Grade Assessment: IV - A patient with severe systemic disease that is a constant threat to life. After reviewing the risks and benefits, the patient was deemed in satisfactory condition to undergo the procedure. After obtaining informed consent, the endoscope was passed under direct vision. Throughout the procedure, the patient's blood pressure, pulse, and oxygen saturations were monitored continuously. The Scope was introduced through the mouth, and advanced to the third part of duodenum. The upper GI endoscopy was accomplished without difficulty. The patient tolerated the procedure well. Findings: The upper third of the esophagus and middle third of the esophagus were normal. LA Grade B (one or more mucosal breaks greater than 5 mm, not extending between the tops of two mucosal folds) esophagitis with no bleeding was found 41 to 42 cm from the incisors. Diffuse moderate inflammation characterized by congestion (edema), erythema and granularity with petechial features was found in the entire examined stomach. Biopsies were taken with a cold forceps for Helicobacter pylori testing. Verification of patient identification for the specimen was done by the physician and environmental monitoring technician using the patient's name and medical record number. A few localized, non-bleeding erosions were found in the gastric body. There were no stigmata of recent bleeding. Localized moderate inflammation was found at the pylorus. The duodenal bulb was normal. Localized moderate inflammation characterized by congestion (edema) and erythema was found in the first part of the duodenum. The 2nd part of the duodenum and 3rd part of the duodenum were normal. The cardia and gastric fundus were normal on retroflexion. Impression: - Normal upper third of esophagus and middle third of esophagus. - LA Grade B reflux esophagitis. - Acute gastritis. Biopsied. DDX includes acute gastritis ( Peptobismul, H pylori), vs portal gastropathy. - Non-bleeding erosive gastropathy. - Gastritis. - Normal duodenal bulb. - Acute duodenitis. - Normal 2nd part of the duodenum and 3rd part of the duodenum. Recommendation: - Return patient to hospital [facility] for ongoing care. - Clear liquid diet. - Continue present medications. - Await pathology results. - Consider portal dopplers to assess for portal vein thrombosis and evidence for portal HTN. Viral markers and chronic liver markers including ferritin, iron percent saturation. Continue PPI and octreotide presently. Follow H/H daily. MD Lopez Siddiqi MD 12/20/2016 6:45:35 PM This report has been signed electronically. Note Initiated On: 12/20/2016 5:43 PM I attest to the content of the Intraoperative Record and orders documented therein, exceptions below
[2016-12-20 19:09] LABS: HEMATOCRIT 26.3 % (42-52)
--- NOTE | 2016-12-20 19:11 | Gastrointestinal Consultation ---
Gastrointestinal Consultation Date of Consultation: Dec 20, 2016 Consulting Physician: Lopez Mi M.D. Reason for Consultation: melena and hematemesis History of Present Illness Patient is a 71 year old male who presented to the emergency room via EMS after experiencing episodes of melena and reported hematemesis. The patient does not have a prior history of peptic ulcer disease, chronic liver disease or NSAID use. Over the past 6 weeks or so he has noted an increase in epigastric distress for which he has been using Pepto-Bismol. The patient denies the use of NSAIDs ibuprofen or Aleve but does take a baby aspirin. The patient is from the [facility] and is followed at [facility] in [place], [place]. The patient does not recall any previous symptoms similar to this and has no prior history of peptic ulcer disease. He does have a gastrointestinal history by way of a portion of his colon being resected in 2001 at [facility] for multiple polyps although the patient denies that cancer was detected. He reports having had colonoscopies every 5 years since that time and his son recalls a colonoscopy last year which was unrevealing. At home, he had a near syncopal event but was able to contact EMS directly and was brought to the hospital. His past medical history includes hypercholesterolemia hypertension and colon polyps. Additional history is provided as well below. His current medications include atenolol, lisinopril, hydrochlorothiazide, allopurinol, statin agent and baby aspirin. Socially the patient lives alone, smokes and drinks approximate 6 cans of beer daily. He does not have a high intake of either whiskey or wine. His family history is noncontributory and specifically there is no history of colorectal cancer, peptic ulcer disease, esophageal gastric pancreatic or liver cancer and no known chronic liver disease in the family exist. His review of systems are otherwise noncontributory based on 14 point exam except for mentioned above. The patient denies recurrent nausea or vomiting , dysphagia, odynophagia but did report an approximate 15 pound weight loss over the past 6 weeks or so. The patient denies dysuria or hematuria and has not reported bright red blood per rectum diarrhea or constipation. There is no pain that radiates to the back. His skin is without rashes by his history. Past Medical/Surgical History Medical Problems: (1) Atrial flutter with rapid ventricular response Status: Acute (2) GI bleed Status: Acute (3) Gout Status: Chronic (4) HLD (hyperlipidemia) Status: Chronic (5) HTN (hypertension) Status: Chronic Family History Hypertension Family history is noncontributory for gastrointestinal disease or gastrointestinal cancer. Social History Smoking Status: Current Every Day Smoker Alcohol Use: other (6 cans beer daily) Drug Use: none Housing Status: lives alone (Son is next door neighbor. ) Occupation Status: retired See above for social history. Allergies Coded Allergies: No Known Allergies (Unverified , 12/20/16) Current Medications Home Meds and Scripts Medications Dose Route/Sig Max Daily Dose Days Date Category Aspirin Ec (Aspirin) 81 Mg Tab 81 Mg PO DAILY 12/20/16 Reported Tenormin (Atenolol) 50 Mg Tab 50 Mg PO BID 12/20/16 Reported Hctz (Hydrochlorothiazide) 25 Mg Tab 25 Mg PO QAM 12/20/16 Reported Lisinopril 10 Mg Tab 10 Mg PO DAILY 12/20/16 Reported Zyloprim (Allopurinol) 300 Mg Tab 300 Mg PO DAILY 12/20/16 Reported Zocor (Simvastatin) 20 Mg Tab 20 Mg PO QPM 12/20/16 Reported Review of Systems ENT: + unusual epistaxis, + nasal symptoms, + sore throat, + tinnitus, No hearing loss, No trouble swallowing, No pain on swallowing, No problem reported Respiratory: + cough Cardiac: + chest pain, No see HPI, No orthopnea, No PND, No edema, No claudication, No palpitations, No problem reported Abdomen: + see HPI, + pain, + nausea, + vomiting, + diarrhea, + constipation, + GI bleeding, + dysphagia, + odynophagia, + acolic stools, + jaundice, + dark urine, + problem reported Musculoskeletal: No see HPI, No joint pain, No muscle pain, No swelling, No calf pain, No problem reported Male : No see HPI, No dysuria, No urinary frequency, No incontinence, No nocturia more than once/night, No slowing stream, No hematuria, No sexual dysfunction, No problem reported Neuro: No see HPI, No memory loss, No paralysis, No weakness, No numbness/ tingling, No vertigo, No balance problems, No problem reported Psych: No see HPI, No depression symptoms, No anhedonism, No anxiety, No insomnia, No substance abuse, No problem reported Heme: No see HPI, No abnormal bleeding/bruising, No clotting problems, No swollen lymph nodes, No night sweats, No problem reported Endo: No see HPI, No fatigue, No excessive thirst, No excessive urination, No problem reported Patient is not known to have bleeding disorders or coagulopathy. Physical Exam Date Time Temp Pulse Resp B/P (MAP) Pulse Ox O2 Delivery O2 Flow Rate FiO2 12/20/16 16:32 36.9 82 20 120/46 99 Nasal Cannula 2.0 12/20/16 15:30 Nasal Cannula 2.0 12/20/16 15:30 36.9 82 20 120/46 (70) 99 Nasal Cannula 2.0 12/20/16 14:00 67 23 99 12/20/16 14:00 71 24 138/41 (73) 96 Nasal Cannula 2.0 12/20/16 13:30 74 21 97 12/20/16 13:00 67 22 97 12/20/16 12:05 74 22 140/52 (83) 98 12/20/16 12:00 72 25 98 12/20/16 12:00 72 25 98 12/20/16 12:00 97 Room Air 12/20/16 11:01 74 24 125/43 (69) 97 12/20/16 11:00 75 24 97 12/20/16 10:01 68 20 131/80 (89) 100 12/20/16 10:00 68 20 99 12/20/16 10:00 68 20 99 12/20/16 10:00 68 20 99 12/20/16 09:57 70 23 148/52 (84) 100 12/20/16 09:57 70 23 148/52 (90) 100 12/20/16 09:00 81 28 97 12/20/16 09:00 81 28 97 12/20/16 08:51 36.6 72 22 173/76 98 Nasal Cannula 4.0 12/20/16 08:28 21 173/76 (108) 98 12/20/16 08:28 79 21 173/76 (117) 98 12/20/16 08:02 71 20 136/53 98 Nasal Cannula 4.0 12/20/16 08:01 21 136/53 (80) 100 12/20/16 08:01 72 21 136/53 (82) 100 12/20/16 08:00 23 99 12/20/16 08:00 72 23 99 12/20/16 07:57 75 26 135/ (75) 99 12/20/16 07:57 26 135/ (45) 99 12/20/16 07:55 74 20 140/52 12/20/16 07:51 69 31 140/52 (75) 99 12/20/16 07:51 31 140/52 (81) 99 12/20/16 07:46 27 138/47 (77) 100 12/20/16 07:46 78 27 138/47 (71) 100 12/20/16 07:41 27 134/56 (82) 99 12/20/16 07:41 69 27 134/56 (74) 99 12/20/16 07:36 26 148/63 (91) 97 12/20/16 07:36 78 26 148/63 (114) 97 12/20/16 07:31 77 27 148/54 (100) 96 12/20/16 07:31 27 148/54 (85) 96 12/20/16 07:26 71 30 142/67 (108) 95 12/20/16 07:26 30 142/67 (92) 95 12/20/16 07:24 81 20 121/40 100 Nasal Cannula 4.0 12/20/16 07:23 30 121/40 (67) 99 12/20/16 07:23 80 30 121/40 (66) 99 12/20/16 07:21 30 138/54 (82) 99 12/20/16 07:21 81 30 138/54 (89) 99 12/20/16 07:16 79 26 141/54 (82) 100 12/20/16 07:16 26 141/54 (83) 100 12/20/16 07:11 32 149/56 (87) 98 12/20/16 07:11 82 32 149/56 (77) 98 12/20/16 07:06 78 29 134/70 (89) 99 12/20/16 07:06 29 134/70 (91) 99 12/20/16 07:01 76 35 139/98 (114) 100 12/20/16 07:01 35 139/98 (112) 100 12/20/16 07:00 73 28 99 12/20/16 07:00 28 99 12/20/16 06:47 77 12/20/16 06:32 36.1 12/20/16 06:31 127 29 116/102 98 Nasal Cannula 4.0 12/20/16 06:27 83/42 12/20/16 06:26 105 29 58/37 99 12/20/16 06:21 99/77 12/20/16 06:16 120/56 12/20/16 06:13 135/61 12/20/16 06:12 132 20 90 12/20/16 06:11 112/85 12/20/16 06:09 115/57 12/20/16 06:07 102/60 12/20/16 06:05 120/59 12/20/16 06:03 116/80 12/20/16 06:02 118/80 12/20/16 06:01 115/78 12/20/16 05:57 130/62 12/20/16 05:56 155/132 12/20/16 05:52 94/71 12/20/16 05:49 110/52 111/58 12/20/16 05:49 36.4 107 20 92 Room Air 12/20/16 05:47 136 12/20/16 05:42 137 24 96 Nasal Cannula 2.0 12/20/16 05:34 12/20/16 05:34 152 12/20/16 05:24 81/24 12/20/16 05:24 99 General Appearance: WD/WN, no apparent distress Eyes: normal inspection, EOMI ENT: normal ENT inspection Neck: supple, no adenopathy, thyroid normal, no carotid bruits Respiratory/Chest: chest non-tender, normal breath sounds, no respiratory distress, no accessory muscle use Cardiovascular: regular rate, rhythm, no gallop, no JVD Abdomen: non tender, soft, no organomegaly, no pulsatile mass Extremities: normal range of motion, non-tender, no pedal edema, no calf tenderness, normal capillary refill Neurologic/Psych: no motor/sensory deficits, alert, oriented x 3 Skin: normal color, no jaundice, warm/dry The patient is awake alert and oriented 3. The oral mucosa is moist there's no cervical or supraclavicular adenopathy I do not appreciate thyromegaly heart is normal S1 and S2 and lungs are overall clear to auscultation although diminished breath sounds at the bases. The abdomen is soft nontender, nondistended with normal bowel sounds. There is no rebound or guarding. I do not appreciate hepatosplenomegaly. There are no abdominal bruits, or masses. There is no evidence for shifting dullness. There is no evidence for tense ascites. Extremities without clubbing cyanosis or edema. A rectal exam is deferred at this time Laboratory Results Last 24 Hours Test 12/20/16 05:33 12/20/16 05:35 12/20/16 05:40 12/20/16 06:14 White Blood Count 9.21 K/uL Red Blood Count 3.52 M/uL Hemoglobin 11.6 g/dL Hematocrit 33.2 % Mean Corpuscular Volume 94.3 fL Mean Corpuscular Hemoglobin 33.0 pg Mean Corpuscular Hemoglobin Concent 34.9 g/dl Platelet Count 129 K/uL Mean Platelet Volume 10.8 fL Neutrophils (%) (Auto) 62.2 % Lymphocytes (%) (Auto) 30.2 % Monocytes (%) (Auto) 5.2 % Eosinophils (%) (Auto) 1.2 % Basophils (%) (Auto) 1.0 % Neutrophils # (Auto) 5.73 K/uL Lymphocytes # (Auto) 2.78 K/uL Monocytes # (Auto) 0.48 K/uL Eosinophils # (Auto) 0.11 K/uL Basophils # (Auto) 0.09 K/uL RDW Standard Deviation 52.2 fL RDW Coefficient of Variation 15.3 % Immature Granulocyte % (Auto) 0.2 % Immature Granulocyte # (Auto) 0.02 K/uL Prothrombin Time 17.4 SECONDS Prothromb Time International Ratio 1.6 Activated Partial Thromboplast Time 28.4 SECONDS Partial Thromboplastin Ratio 1.1 Sodium Level 137 mmol/L Potassium Level 4.0 mmol/L Chloride Level 93 mmol/L Carbon Dioxide Level 27 mmol/L Anion Gap 17.0 mmol/L 21.0 mmol/L Blood Urea Nitrogen 35 mg/dl Creatinine 1.80 mg/dl Estimated GFR () 43.2 Estimated GFR (Non- 37.3 BUN/Creatinine Ratio 19.6 Random Glucose 130 mg/dl Calcium Level 9.3 mg/dl Total Bilirubin 2.2 mg/dl Direct Bilirubin 0.7 mg/dl Aspartate Amino Transf (AST/SGOT) 53 U/L Alanine Aminotransferase (ALT/SGPT) 28 U/L Alkaline Phosphatase 56 U/L Total Creatine Kinase 44 U/L Creatine Kinase MB 1.6 ng/ml Creatine Kinase MB Ratio 3.6 Troponin I 0.098 ng/ml Pro-B-Type Natriuretic Peptide 427 pg/ml Total Protein 7.3 gm/dl Albumin 2.7 gm/dl Lipase 269 U/L Bedside Hemoglobin 11.6 g/dl Bedside Hematocrit 34 % Bedside Sodium 136 mEq/L Bedside Potassium 4.0 mEq/L Bedside Chloride 91 mEq/L Bedside Total CO2 30 mEq/l Bedside Blood Urea Nitrogen 39 mg/dl Bedside Creatinine 1.4 mg/dl Bedside Glucose (other) 127 mg/dl Bedside Ionized Calcium (Nagi) 1.07 mmol/l Estimated Average Glucose 94 mg/dl Hemoglobin A1c 4.9 % Bedside Lactic Acid Venous 8.24 mmol/L Procalcitonin 0.55 ng/ml Thyroid Stimulating Hormone (TSH) 2.750 uIu/ml Thyroxine (T4) 6.4 mcg/dl Lactic Acid Level 8.9 mmol/L Test 12/20/16 08:53 12/20/16 11:50 12/20/16 16:11 Ethyl Alcohol mg/dL < 3.0 mg/dl Hemoglobin 9.6 g/dL Hematocrit 28.6 % Lactic Acid Level 8.8 mmol/L Troponin I 0.696 ng/ml Hepatitis B Surface Antigen NEG Hepatitis C Antibody NEG Bedside Glucose 178 mg/dl Laboratory studies were reviewed from admission and current values. Patient's baseline hemoglobin was 11.6 and trended downward to 9.6. There is an elevated lactate level but hepatitis B surface antigen and C anybody are negative. The platelet count is slightly diminished at 129. The BUN/creatinine were 35 and 1.8. Hemoglobin A1c was 4.9%. Total bilirubin was slightly elevated at 2.2 with a direct fraction of 0.7. AST was 53 ALT 28 alkaline phosphatase is 56. INR is elevated at 1.6 Chest x-ray was without acute disease. Liver ultrasound earlier today revealed a heterogeneous appearing liver but no evidence for ductal dilation in the biliary system and the gallbladder appears to be surgically absent portions of the abdomen obscured with bowel gas. The pancreas is not well defined. The splenic is not visualized as this is a right upper quadrant ultrasound. Impression Patient is a 71 year old male who presents with an approximate 6 week history of epigastric distress with the patient took Pepto-Bismol, 15 pound weight loss over and an acute onset of hematemesis over a similar period of time. This presented as a near syncopal episode and presentation to the emergency room by EMS. There is a downward trend of the patient's hemoglobin and along with a elevated INR and low platelets and his chronic alcohol use history conditions in addition to peptic ulcer disease gastritis include portal gastropathy esophageal or gastric varices. This would appear to be an upper GI bleeding source although there is a history of colon polyps with resection. Plan: Would continue PPI therapy and octreotide drip until endoscopy is completed. Ultrasound portal Dopplers would be helpful to exclude evidence of either portal vein thrombosis or portal hypertension. Assessment of spleen size would also be helpful. The source of the patient's elevated INR, if not related to chronic liver disease may be nutritional. Await additional chronic liver markers and would consider obtaining a percent saturation of iron, ferritin level, AMA, antinuclear antibody. Presently would keep patient nothing by mouth until upper endoscopy is completed. Would also follow hemoglobin serially as well as platelets and INR and if bleeding is ongoing consideration for correction of thrombocytopenia and INR would be helpful. Further recommendations to follow. Thank you for allowing to participate in this patient's care. Lopez Mi M.D. Addendum 7:02 PM 12-20-2016 Upper endoscopy was performed after consent was obtained from the patient. This was performed in the operating room for endotracheal intubation. The esophagus is overall normal with only minimal esophagitis and no esophageal varices. The stomach demonstrated a diffuse pattern of gastritis with petechiae although no active hemorrhaging is noted. There is also linear superficial ulcers in the proximal stomach body. Additionally there is evidence of duodenitis in the post bulbar region although careful inspection could not identify any obvious ulcerations. There was no active bleeding throughout the upper endoscopy. Samples were taken of the gastric mucosa for H. pylori. The pattern of gastritis however is diffuse in nature and may reflect either acute gastritis, H. pylori gastritis, or possibly diffuse portal hypertensive gastropathy. Therefore would recommend portal Dopplers and ultimately may need a CT scan given the patient's weight loss. Would continue PPI and octreotide therapy for the present time. Monitor and correct electrolytes as needed. Monitor and correct platelet count and INR is evidence of ongoing bleeding. Further recommendations to follow. Lopez Mi M.D. Plan See plan as described in impression above.
--- NOTE | 2016-12-20 19:19 | Anesthesiology Progress Note ---
Anesthesia Post Op Note Date & Time Dec 20, 2016 at 19:18 Vital Signs Pain Intensity: 0.0 Vital Signs Past 12 Hours Date Time Temp Pulse Resp B/P (MAP) Pulse Ox O2 Delivery O2 Flow Rate FiO2 12/20/16 19:00 36.8 87 121/43 (67) 92 Nasal Cannula 4 12/20/16 18:45 36.9 110/40 (57) 93 Mask 4 12/20/16 16:32 36.9 82 20 120/46 99 Nasal Cannula 2.0 12/20/16 15:30 Nasal Cannula 2.0 12/20/16 15:30 36.9 82 20 120/46 (70) 99 Nasal Cannula 2.0 12/20/16 14:00 67 23 99 12/20/16 14:00 71 24 138/41 (73) 96 Nasal Cannula 2.0 12/20/16 13:30 74 21 97 12/20/16 13:00 67 22 97 12/20/16 12:05 74 22 140/52 (83) 98 12/20/16 12:00 72 25 98 12/20/16 12:00 72 25 98 12/20/16 12:00 97 Room Air 12/20/16 11:01 74 24 125/43 (69) 97 12/20/16 11:00 75 24 97 12/20/16 10:01 68 20 131/80 (89) 100 12/20/16 10:00 68 20 99 12/20/16 10:00 68 20 99 12/20/16 10:00 68 20 99 12/20/16 09:57 70 23 148/52 (84) 100 12/20/16 09:57 70 23 148/52 (90) 100 12/20/16 09:00 81 28 97 12/20/16 09:00 81 28 97 12/20/16 08:51 36.6 72 22 173/76 98 Nasal Cannula 4.0 12/20/16 08:28 21 173/76 (108) 98 12/20/16 08:28 79 21 173/76 (117) 98 12/20/16 08:02 71 20 136/53 98 Nasal Cannula 4.0 12/20/16 08:01 21 136/53 (80) 100 12/20/16 08:01 72 21 136/53 (82) 100 7/6/17 08:00 23 99 12/20/16 08:00 72 23 99 12/20/16 07:57 75 26 135/ (75) 99 12/20/16 07:57 26 135/ (45) 99 12/20/16 07:55 74 20 140/52 12/20/16 07:51 69 31 140/52 (75) 99 12/20/16 07:51 31 140/52 (81) 99 12/20/16 07:46 27 138/47 (77) 100 12/20/16 07:46 78 27 138/47 (71) 100 12/20/16 07:41 27 134/56 (82) 99 12/20/16 07:41 69 27 134/56 (74) 99 12/20/16 07:36 26 148/63 (91) 97 12/20/16 07:36 78 26 148/63 (114) 97 12/20/16 07:31 77 27 148/54 (100) 96 12/20/16 07:31 27 148/54 (85) 96 12/20/16 07:26 71 30 142/67 (108) 95 12/20/16 07:26 30 142/67 (92) 95 12/20/16 07:24 81 20 121/40 100 Nasal Cannula 4.0 12/20/16 07:23 30 121/40 (67) 99 12/20/16 07:23 80 30 121/40 (66) 99 12/20/16 07:21 30 138/54 (82) 99 12/20/16 07:21 81 30 138/54 (89) 99 Notes Mental Status: alert / awake / arousable, participated in evaluation Pt Amnestic to Procedure: Yes Nausea / Vomiting: adequately controlled Pain: adequately controlled Airway Patency, RR, SpO2: stable & adequate BP & HR: stable & adequate Hydration State: stable & adequate Anesthetic Complications: no major complications apparent
[2016-12-20] MEDS ORDERED: LEVALBUTEROL 1.25MG/3ML NEB INH PRN (20:15)
--- NOTE | 2016-12-20 20:34 | Progress Note ---
Progress Note Date of Service Dec 20, 2016. Progress Note Addendum 8 PM 12/20/2016 Rapid response called to room patient was having postprocedure assessment following EGD and became really unresponsive with a fall in blood pressure from the 150s to 109. Patient recovered level of alertness and is awake alert and oriented to person place and time, however there is a sense of clouded sensorium. Patient was refusing oxygen placement although nasal cannula were eventually applied to the patient. Physical exam shows no localizing features although there is decreased breath sounds with the crackles noted. Spoke Spoke with the ICU team and recommended a portable chest x-ray to assess for pulmonary edema, monitor serum electrolytes O2 saturation and if necessary an ABG may be helpful. If if there is any persistence or change in his level of alertness, CT head imaging may be prudent. At the present time would continue the octreotide drip along with the PPI as it is unclear if a component of portal hypertension may be responsible for the endoscopic changes seen earlier this evening. I did discuss the results of the upper endoscopy with the patient's sons and all of their questions were answered. [email or web address]
--- NOTE | 2016-12-20 21:00 | DIAGNOSTIC IMAGING REPORT ---
CHEST ONE VIEW PORTABLE CLINICAL HISTORY: Respiratory failure. Wheezing. COMPARISON STUDY: 12/20/2016 FINDINGS: The cardiac and mediastinal contours remain stable. There is no focal pulmonary consolidation. There is mild central vascular prominence but no evidence of overt failure. No pneumothorax is visualized. There is no significant pleural fluid.[ IMPRESSION: 1. No evidence of focal pulmonary consolidation 2. Mild central vascular prominence without evidence of overt failure Electronically signed by: Jarrett Velásquez M.D. 12/20/2016 8:59 PM Dictated Date/Time: 12/20/2016 8:58 PM
[2016-12-20] MEDS ORDERED: DexMEDEtomidine IV DRIP IV STA (21:01)
[2016-12-20] MEDS ORDERED: PROPRANOLOL HCL 10 MG TAB PO ONE (21:01)
[2016-12-20] MEDS ORDERED: DexMEDEtomidine HCL INJ 200 MCG in SODIUM CHLORIDE 0.9% 50ML 48 ML IV PRN (21:15)
--- NOTE | 2016-12-20 21:15 | DIAGNOSTIC IMAGING REPORT ---
ULTRASOUND OF THE CAROTID ARTERIES CLINICAL HISTORY: Unresponsive episode. Possible stroke. COMPARISON STUDY: None. TECHNIQUE: Real-time, grayscale, and color Doppler sonography of the carotid arteries was performed. Imaging reviewed in the transverse and longitudinal planes. NASCET criteria was utilized for stenosis calcification. FINDINGS: There is moderately extensive calcific shadowing atherosclerotic plaque present bilaterally. The peak systolic velocity within the right internal carotid artery is 97 cm/sec. The systolic velocity ratio of right internal to common carotid artery is 0.6. The peak systolic velocity within the left internal carotid artery is 122 cm/sec. The systolic velocity ratio left internal to common carotid artery is 0.8. Antegrade flow is seen in the vertebral arteries. The external carotid arteries are patent. The study was limited from a technical standpoint. The patient was uncooperative. IMPRESSION: 1. Technically limited study 2. Moderate bilateral atheromatous changes 3. No evidence of hemodynamic significant internal carotid artery stenosis Electronically signed by: Jarrett Velásquez M.D. 12/20/2016 9:14 PM Dictated Date/Time: 12/20/2016 9:12 PM
[2016-12-20 23:51] LABS: POTASSIUM 3.7 mmol/L (3.5-5.1)
[2016-12-20 23:59] LABS: HEMATOCRIT 21.5 % (42-52)
[2016-12-21] VITALS (37 sets, daily range): BP systolic 93–170; BP diastolic 42–83; PULSE 65–80; TEMP 36.8–37; O2SAT 90–99
[2016-12-21 00:11] LABS: MAGNESIUM 1.3 mg/dl (1.8-2.4); PHOSPHORUS 2.5 mg/dl (2.5-4.9)
[2016-12-21 00:44] LABS: HEMATOCRIT 22.8 % (42-52)
[2016-12-21] MEDS: MAGNESIUM SULFATE 1GM / D5W 1 GM in PREMIXED IN D5W 100 ML IV SCH ×2 (01:01→02:02)
[2016-12-21 01:30] LABS: URINE APPEARANCE CLEAR (CLEAR); URINE BILIRUBIN NEG (NEG); URINE COLOR DK YELLOW; URINE NITRITE NEG (NEG); URINE SPECIFIC GRAVITY 1.023 (1.000-1.030); UROBILINOGEN NEG (NEG)
[2016-12-21 01:32] LABS: MANUAL MICROSCOPIC REQUIRED? NO; REVIEW REQ? NO
[2016-12-21] MEDS: PANTOprazole INJ 40 MG in DEXTROSE 5% 100ML 100 ML IV SCH ×4 (02:02→19:08)
[2016-12-21] MEDS: NORMOSOL R 1,000 ML IV SCH (02:03)
[2016-12-21 06:12] LABS: BUN/CREATININE RATIO 35.2 (10-20); CALCIUM 7.8 mg/dl (8.5-10.1); CREATININE 1.2 mg/dl (0.60-1.40); MAGNESIUM 2.3 mg/dl (1.8-2.4); PHOSPHORUS 2.8 mg/dl (2.5-4.9); POTASSIUM 3.9 mmol/L (3.5-5.1)
--- NOTE | 2016-12-21 06:14 | Critical Care Progress Note ---
Critical Care Progress Note Date of Service Dec 21, 2016. ICU Day ICU Day Number: [address] Campbell Subjective Apolinar Maya is a 71-year-old male who presented yesterday for presumed upper GI bleeding and underwent EGD at which point there was no notable bleeding varices and patient is noted to have gastritis. Multiple biopsies were taken. I spoke with Dr. Mi last evening in regards to his findings. He is suspicious of portal gastropathy and plans to continue the current octreotide treatment. Around 1945 last evening I was in evaluating the patient routinely; when he became unresponsive, staring ahead, pointing outward without moving his arm, with agonal breathing and gurgling noted. A code purple was called at this time; patient had just returned from the OR roughly [address] Barreto, Dr. Mi, and Dr. Steven arrived as the patient started to arouse. Prior to the arrival of his noted as we recycled the blood pressure cuff that patient's pressure had abruptly dropped from a systolic in the mid 150s to 106. Heart rate, rhythm, and oxygenation did not change during this time. Blood glucose was checked and patient was hyperglycemic in the 170s. When patient did come around he was agitated and wanted all staff to move so that he could watch the baseball game that was on the television. Patient remained agitated for an extended period of time and was not able to be oriented. With his son in the room during the entire code; son agreed that patient was not acting himself. 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 He stated he did not trust medical staff or his son and felt that there was a conspiracy in his admission to the hospital. As patient is known to be a daily drinker and has not drank in approximately 5 days during illness a CIWA was scored at 9 for a moderate risk of withdrawal. Patient was placed on a Precedex drip which drastically improved his agitation. He had been hypertensive prior to this time and status post drip implementation patient 's blood pressure went from the 170s to 110-130 range. While examining the patient this morning and asking questions for orientation; patient was unable to tell me where he was or the current year. However he was able to tell me his name and knew he was sick as well as identified his son in the room and name him. Patient had just previously been able to tell his ICU nurse, My, that he was in the hospital in [place]. I believe the patient is in and out of awareness secondary to withdrawal/prior sedation. Patient denied fever/chills, change in vision, difficulty breathing. He was noted to have some intermittent coughing that he stated was dry. Patient denied chest pain, nausea, general pain. Patient did state he's been passing gas. He denies numbness/tingling of his extremities. Objective Vital Signs - as noted Laboratory Data - as noted Physical Exam: General - NAD, Resting Quietly in bed on his right side. Eyes - PERRL, EOMI No icterus, gaze conjugate ENT - Mucosa dry, no lesions or candidiasis Neck - Supple, trachea midline, no masses or lymphadenopathy, no JVD or bruits Lungs - No paradoxical chest wall movement, clear and diminished to auscultation bilaterally, no wheezes, rales, or rhonchi Heart - Reg rate and rhythm, Grade 3 systolic murmur noted No rubs, clicks, or gallops appreciated Abdomen - BS present, no bruits noted, tympanic to percussion, soft, nontender, nondistended, no organomegaly Extremities - No edema, pedal pulses intact Neuro - A & O x 2 Strength extremities equal and appropriate bilaterally Reflexes: normal and equal CN:PERRL, EOMI, no facial asymmetry, uvula/tongue midline Current SOFA Score SOFA Score Response (Comments) Value Platelets (x10) < 100 2 Bilirubin (mg/dL) 2.0 - 5.9 2 Starks Coma Score 15 0 Level of Hypotension No Hypotension 0 Creatinine (mg/dL) 1.2 - 1.9 1 Total 5 Assessment & Plan (1) GI bleed (2) Atrial flutter with rapid ventricular response (3) HTN (hypertension) (4) HLD (hyperlipidemia) (5) Unresponsive episode Reason Critically Ill: Patient is an 71-year-old male who is transferred to the ICU for gastrointestinal bleeding. PLAN: GI/Nutrition: * Dr. Mi Consulted: Appreciate his input * Continue Protonix & Octreotide drip secondary to suspicion of portal gastropathy * Trend H&H: Transfuse < 7.5 (Consent on Chart) (7.3 this AM will transfuse 1 unit) * Per GI recommendation portal Dopplers and abdominal/pelvis as well as CT secondary to patient weight loss * EGD performed 12/20: * "There was no active bleeding throughout the upper endoscopy. Samples were taken of the gastric mucosa for H. pylori. The pattern of gastritis however is diffuse in nature and may reflect either acute gastritis, H. pylori gastritis, or possibly diffuse portal hypertensive gastropathy. " Dr. Mi * Will continue IV Rocephin at this time for prophylaxis Neuro: * Patient is at less than baseline and suspicion of withdrawal as noted * Continue Librium for withdrawal and when necessary Ativan * Precedex was turned off overnight due to increasingly low blood pressure; resume as tolerated if agitation recurs * If neuro symptoms do not improve consider head CT; however, procedures have been noted to increase agitation and may not be tolerated * Continue to monitor for neurologic change Resp: * Supplemental oxygen as required * Adequate saturations on 2 L nasal cannula * No longer no wheezing on physical exam and breath sounds have improved CV: * No arrhythmias noted since admission to ICU continue to monitor on telemetry for changes * Troponin now trending down * Plan to restart home meds; patient has been cheeking and palming medications overnight will need close observation for medication administration in the PO fashion Fluids/Renal: * Possible HAYLEY: POC Cr 1.4: PRP Cr 1.8 (Unknown Baseline) * Today's Cr improvin.2 * Monitor closely continue fluids: NSS @ 75 * Monitor labs & Electrolytes * Hypomagnesemia noted overnight and 2g replaced * Follow labs and replace per protocol ID: * Afebrile * WBC: 5.15 * Lactic acid trending down in the setting of GI bleed and negative pro calcitonin * Continue Rocephin as noted in GI Heme: * Acute blood loss anemia noted hemoglobin trending down from 11.6 to 7.3 * Transfuse 1 unit now * Plts: 53 (Down from 129) * Plts repletion per Dr. Campbell * Continue to trend H&H; limit lab draws Endocrine: * Accu-Checks per protocol, started insulin infusion for 2 blood sugars greater than 180 * A1c and TSH from prior day within normal limits CCT: 45 Minutes; This time is exclusive of all separately billable procedures. Thank you for involving us in the care of this patient. Please refer to Dr. Luis Campbell's addendum for further recommendations I have personally evaluated and examined this patient. I agree with assessment and plan of Rosie Bermudez PA-C. Reason Critically Ill: GI bleeding and concern for alcohol withdrawal PLAN: Neuro: Patient had episode of unresponsiveness, carotid duplex reveals no hemodynamically significant lesions. Patient is noted to have heart murmur, we will obtain complete echo to rule out valvulopathy, aortic stenosis. With episode patient rapidly recovered no focal deficits, doubt TIA. CAM ICU reported as negative, however patient has report of noncompliance and cheeking meds. Will require close observation by medical staff Resp: History of significant tobacco use, supplemental oxygen as needed CV: During episode of unresponsiveness, there was no change in the patient's cardiac rhythm, reviewed telemetry strips. We will switch atenolol to nadolol given possible portal hypertension Holding lisinopril and hydrochlorothiazide for blood pressure being within normal range at this time Will hold simvastatin given transaminitis * Prolonged QT, avoid QT prolonging agents Fluids/Renal: HAYLEY improved, stopping IV fluid starting clear liquid diet, giving 1 L LR as hydration bolus prior to CT abdomen and pelvis today for GI workup of associated weight loss ID: Continue Rocephin for 7 days prophylaxis, EKG with prolonged QTC quinolones relatively contraindicated. 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 Pathology specimen is pending, will treat for H. pylori based on pathology findings * Progress to clear liquid diet * research instrumentation technician reports that flow was evaluated during yesterday's abdominal ultrasound, await addendum added to ultrasound report Heme: Continued anemia requiring 1 unit blood transfusion today * Thrombocytopenia will avoid chemical prophylaxis at this time and utilize mechanical prophylaxis Endocrine: Accu-Cheks within acceptable limits Consults & Procedures Consultants: GI: Dr. iM Procedures: EGD: 12/20 Data Medications: Current Inpatient Medications Medications (Trade) Dose Ordered Sig/Angy Route Start Time Stop Time Status Last Admin Dose Admin Lorazepam (Ativan Inj) PRN Dosing -Active Protocol Q1H PRN IV 12/20/16 08:30 01/19/17 08:29 Pantoprazole Sodium 40 mg/ Dextrose 110 ml @ 20 mls/hr Q5H IV 12/20/16 11:30 01/19/17 11:29 12/21/16 02:02 20 MLS/HR Metoprolol Tartrate (Lopressor Iv) 5 mg Q4 PRN IV 12/20/16 08:45 01/19/17 08:44 Octreotide Acetate 500 mcg/ Sodium Chloride 105 ml @ 10 mls/hr [id number] IV 12/20/16 09:30 01/19/17 09:29 12/20/16 21:40 10 MLS/HR Ceftriaxone Sodium 2000 mg/ Dextrose 70 ml @ 140 mls/hr Q24H IV 12/20/16 10:00 12/30/16 09:59 12/20/16 11:31 140 MLS/HR Chlordiazepoxide (Librium Cap) 25 mg Q6 PO 12/20/16 12:00 12/21/16 06:01 12/20/16 23:25 25 MG Chlordiazepoxide (Librium Cap) 25 mg Q8 PO 12/21/16 14:00 12/22/16 06:01 Chlordiazepoxide (Librium Cap) 10 mg Q8 PO 12/22/16 14:00 12/23/16 06:01 Chlordiazepoxide (Librium Cap) 5 mg Q12 PO 12/23/16 21:00 12/24/16 09:01 Multivitamins (Multivitamin Tab) 1 tab QAM PO 12/21/16 09:00 01/20/17 08:59 Thiamine HCl (Vitamin B-1 Tab) 100 mg DAILY PO 12/21/16 09:00 01/20/17 08:59 Folic Acid (Folvite Tab) 1 mg DAILY PO 12/21/16 09:00 01/20/17 08:59 Parenteral Electrolyte Solution 1,000 ml @ 75 mls/hr [id number] IV 12/20/16 09:30 01/19/17 09:29 12/21/16 02:03 75 MLS/HR Levalbuterol (Xopenex 1.25MG/ 3ML Neb) 1.25 mg Q6R PRN INH 12/20/16 20:15 01/19/17 20:14 Propranolol HCl (Inderal Tab) 10 mg TID PO 12/21/16 09:00 01/20/17 08:59 Dexmedetomidine HCl 200 mcg/ Sodium Chloride 50 ml @ 0 mls/hr Q0M PRN IV 12/20/16 21:15 12/24/16 21:14 7/6/17 21:17 10.4 MLS/HR Vital Signs: Date Time Temp Pulse Resp B/P (MAP) Pulse Ox O2 Delivery O2 Flow Rate FiO2 12/21/16 04:00 Nasal Cannula 2.0 12/21/16 04:00 37.0 67 16 117/78 (91) 97 Nasal Cannula 2.0 12/21/16 02:00 67 17 107/42 (63) 96 Nasal Cannula 3.0 12/21/16 00:00 Nasal Cannula 4.0 12/21/16 00:00 36.9 65 12 118/51 (73) 97 Nasal Cannula 3.0 12/20/16 23:00 64 10 100/47 (64) 96 12/20/16 22:31 68 18 87/36 (52) 12/20/16 22:30 68 6 95 12/20/16 22:01 74 14 130/47 (98) 95 12/20/16 22:00 75 21 94 12/20/16 22:00 37.2 71 12 130/47 (74) 94 Nasal Cannula 3.0 12/20/16 21:46 87 19 153/79 (95) 95 12/20/16 21:31 94 22 164/77 (127) 95 12/20/16 21:30 95 18 93 12/20/16 21:00 87 22 173/57 (90) 97 12/20/16 20:31 95 28 179/72 (105) 97 12/20/16 20:30 95 25 99 12/20/16 20:21 96 22 140/63 (93) 97 12/20/16 20:11 94 26 164/62 (76) 96 12/20/16 20:05 89 25 96 12/20/16 20:01 93 21 146/69 (90) 92 12/20/16 20:01 93 21 146/69 (90) 92 12/20/16 20:00 94 25 91 12/20/16 20:00 94 25 91 12/20/16 19:55 96 24 94 12/20/16 19:51 95 18 152/62 (97) 98 12/20/16 19:50 94 26 100 12/20/16 19:48 91 21 109/44 (47) 100 12/20/16 19:46 86 23 129/49 (79) 97 12/20/16 19:45 89 18 93 12/20/16 19:40 88 27 95 717 19:35 94 23 95 17 19:31 86 26 159/69 (96) 94 12/20/16 19:30 91 23 94 12/20/16 19:22 Nasal Cannula 4.0 12/20/16 19:17 85 22 97/53 (72) 95 12/20/16 19:15 36.8 89 24 97/53 94 Nasal Cannula 4 12/20/16 19:15 88 23 127/69 (78) 94 12/20/16 19:11 89 28 127/111 (115) 92 12/20/16 19:10 88 26 93 12/20/16 19:07 87 28 121/43 (67) 92 12/20/16 19:05 86 23 92 12/20/16 19:01 86 22 120/40 (71) 95 12/20/16 19:00 36.8 87 121/43 (67) 92 Nasal Cannula 4 12/20/16 19:00 87 26 92 12/20/16 18:56 88 21 126/62 (94) 94 12/20/16 18:55 85 23 100 12/20/16 18:51 86 32 123/53 (82) 99 12/20/16 18:50 83 17 110/40 (57) 99 12/20/16 18:48 77 26 174/159 (163) 99 12/20/16 18:45 84 27 100 12/20/16 18:45 36.9 110/40 (57) 93 Mask 4 12/20/16 16:32 36.9 82 20 120/46 99 Nasal Cannula 2.0 12/20/16 15:30 Nasal Cannula 2.0 12/20/16 15:30 36.9 82 20 120/46 (70) 99 Nasal Cannula 2.0 12/20/16 14:00 67 23 99 12/20/16 14:00 71 24 138/41 (73) 96 Nasal Cannula 2.0 12/20/16 13:30 74 21 97 12/20/16 13:00 67 22 97 12/20/16 12:05 74 22 140/52 (83) 98 12/20/16 12:00 72 25 98 12/20/16 12:00 72 25 98 12/20/16 12:00 97 Room Air 12/20/16 11:01 74 24 125/43 (69) 97 12/20/16 11:00 75 24 97 12/20/16 10:01 68 20 131/80 (89) 100 12/20/16 10:00 68 20 99 12/20/16 10:00 68 20 99 12/20/16 10:00 68 20 99 12/20/16 09:57 70 23 148/52 (84) 100 12/20/16 09:57 70 23 148/52 (90) 100 12/20/16 09:00 81 28 97 12/20/16 09:00 81 28 97 12/20/16 08:51 36.6 72 22 173/76 98 Nasal Cannula 4.0 12/20/16 08:28 21 173/76 (108) 98 12/20/16 08:28 79 21 173/76 (117) 98 12/20/16 08:02 71 20 136/53 98 Nasal Cannula 4.0 12/20/16 08:01 21 136/53 (80) 100 12/20/16 08:01 72 21 136/53 (82) 100 12/20/16 08:00 23 99 12/20/16 08:00 72 23 99 12/20/16 07:57 75 26 135/ (75) 99 12/20/16 07:57 26 135/ (45) 99 12/20/16 07:55 74 20 140/52 12/20/16 07:51 69 31 140/52 (75) 99 12/20/16 07:51 31 140/52 (81) 99 12/20/16 07:46 27 138/47 (77) 100 12/20/16 07:46 78 27 138/47 (71) 100 12/20/16 07:41 27 134/56 (82) 99 12/20/16 07:41 69 27 134/56 (74) 99 12/20/16 07:36 26 148/63 (91) 97 12/20/16 07:36 78 26 148/63 (114) 97 12/20/16 07:31 77 27 148/54 (100) 96 12/20/16 07:31 27 148/54 (85) 96 12/20/16 07:26 71 30 142/67 (108) 95 12/20/16 07:26 30 142/67 (92) 95 12/20/16 07:24 81 20 121/40 100 Nasal Cannula 4.0 12/20/16 07:23 30 121/40 (67) 99 12/20/16 07:23 80 30 121/40 (66) 99 12/20/16 07:21 30 138/54 (82) 99 12/20/16 07:21 81 30 138/54 (89) 99 12/20/16 07:16 79 26 141/54 (82) 100 12/20/16 07:16 26 141/54 (83) 100 12/20/16 07:11 32 149/56 (87) 98 12/20/16 07:11 82 32 149/56 (77) 98 12/20/16 07:06 78 29 134/70 (89) 99 12/20/16 07:06 29 134/70 (91) 99 12/20/16 07:01 76 35 139/98 (114) 100 12/20/16 07:01 35 139/98 (112) 100 12/20/16 07:00 73 28 99 12/20/16 07:00 28 99 12/20/16 06:47 77 12/20/16 06:32 36.1 12/20/16 06:31 127 29 116/102 98 Nasal Cannula 4.0 12/20/16 06:27 83/42 12/20/16 06:26 105 29 58/37 99 12/20/16 06:21 99/77 12/20/16 06:16 120/56 12/20/16 06:13 135/61 12/20/16 06:12 132 20 90 12/20/16 06:11 112/85 12/20/16 06:09 115/57 12/20/16 06:07 102/60 12/20/16 06:05 120/59 12/20/16 06:03 116/80 12/20/16 06:02 118/80 12/20/16 06:01 115/78 12/20/16 05:57 130/62 12/20/16 05:56 155/132 12/20/16 05:52 94/71 12/20/16 05:49 110/52 111/58 12/20/16 05:49 36.4 107 20 92 Room Air 12/20/16 05:47 136 12/20/16 05:42 137 24 96 Nasal Cannula 2.0 Laboratory Results: Last 24 Hours Test 12/20/16 05:35 12/20/16 05:40 12/20/16 06:14 12/20/16 08:53 Bedside Hemoglobin 11.6 g/dl Bedside Hematocrit 34 % Bedside Sodium 136 mEq/L Bedside Potassium 4.0 mEq/L Bedside Chloride 91 mEq/L Bedside Total CO2 30 mEq/l Anion Gap 21.0 mmol/L Bedside Blood Urea Nitrogen 39 mg/dl Bedside Creatinine 1.4 mg/dl Bedside Glucose (other) 127 mg/dl Bedside Ionized Calcium (Nagi) 1.07 mmol/l Estimated Average Glucose 94 mg/dl Hemoglobin A1c 4.9 % Bedside Lactic Acid Venous 8.24 mmol/L Procalcitonin 0.55 ng/ml Thyroid Stimulating Hormone (TSH) 2.750 uIu/ml Thyroxine (T4) 6.4 mcg/dl Lactic Acid Level 8.9 mmol/L Ethyl Alcohol mg/dL < 3.0 mg/dl Test 12/20/16 11:50 12/20/16 16:11 12/20/16 18:53 12/20/16 19:48 Hemoglobin 9.6 g/dL 9.1 g/dL Hematocrit 28.6 % 26.3 % Lactic Acid Level 8.8 mmol/L 6.4 mmol/L Troponin I 0.696 ng/ml 1.010 ng/ml Hepatitis B Surface Antigen NEG Hepatitis C Antibody NEG Bedside Glucose 178 mg/dl 177 mg/dl Test 12/20/16 23:25 12/21/16 00:31 12/21/16 00:35 12/21/16 00:45 Hemoglobin 7.2 g/dL 7.8 g/dL Hematocrit 21.5 % 22.8 % Potassium Level 3.7 mmol/L Phosphorus Level 2.5 mg/dl Magnesium Level 1.3 mg/dl Troponin I 0.669 ng/ml Bedside Glucose 143 mg/dl Urine Color DK YELLOW Urine Appearance CLEAR Urine pH 5.0 Urine Specific Bishop 1.023 Urine Protein NEG Urine Glucose (UA) NEG Urine Ketones TRACE Urine Occult Blood NEG Urine Nitrite NEG Urine Bilirubin NEG Urine Urobilinogen NEG Urine Leukocyte Esterase NEG Test 12/21/16 05:15
[2016-12-21 06:16] LABS: HEMATOCRIT 21.1 % (42-52); MEAN CELL VOLUME 91.7 fL (80-100); MEAN CORPUSCULAR HEMOGLOBIN 31.7 pg (25-34); MEAN CORPUSCULAR HGB CONC 34.6 g/dl (32-36); MEAN PLATELET VOLUME 10.1 fL (7.4-10.4); PLATELET COUNT 53 K/uL (130-400); WHITE BLOOD COUNT 5.15 K/uL (4.8-10.8)
[2016-12-21 06:17] LABS: COMPLETE YES; EOS % 0.2 %; IG% 0.4 %; LYMPH % 16.3 %; LYMPH ABS # 0.84 K/uL (1.2-3.4); MONO % 6.8 %; NEUT % 76.3 %; PLT ESTIMATE DECREASED
[2016-12-21] MEDS: CHLORDIAZEPOXIDE 25MG 1ST DOSE PO SCH (06:17)
[2016-12-21] MEDS ORDERED: OPTIRAY 320 IV PRN (09:00)
[2016-12-21] MEDS ORDERED: LACTATED RINGER'S 1000ML 1,000 ML IV SCH (09:00)
[2016-12-21] MEDS ORDERED: PROPRANOLOL HCL 10 MG TAB PO SCH (09:00)
[2016-12-21] MEDS ORDERED: NADOLOL 40 MG TAB PO SCH (09:00)
[2016-12-21] MEDS ORDERED: PHYTONADIONE INJ 2.5 MG in SODIUM CHLORIDE 0.9% 50ML 50 ML IV ONE (09:15)
[2016-12-21] MEDS: NICOTINE 14 MG/24 HR TDSY TD SCH (10:07)
[2016-12-21] MEDS: MULTIVITAMIN TAB PO SCH (10:07)
[2016-12-21] MEDS: OCTREOTIDE ACETATE INJ 500 MCG in NSS 100ML IV SCH ×2 (10:09→21:51)
[2016-12-21] MEDS: CEFTRIAXONE SOD INJ 2000 MG in DEXTROSE 5% 50ML IV SCH (10:11)
[2016-12-21 11:07] LABS: INR 1.4 (0.9-1.1); PROTHROMBIN TIME (PATIENT) 15.7 SECONDS (9.0-12.0)
--- NOTE | 2016-12-21 12:38 | DIAGNOSTIC IMAGING REPORT ---
ABD/PELVIS IV AND ORAL CONT HISTORY:70 [id number] lbs weight loss COMPARISON: Ultrasound of the liver 12/20/2016. TECHNIQUE: Multiple axial CT images of the abdomen and pelvis were obtained following the intravenous administration of 92 mL Optiray 320. Oral contrast was also utilized. FINDINGS: The heart is mildly enlarged with coronary arterial calcifications present. There is minimal bibasilar dependent consolidation suggesting atelectasis. There is an 8 x 6 mm pleural-based noncalcified pulmonary nodule within the lateral basal segment right lower lobe on image 6 of the axial series. No gross pneumoperitoneum. There is heterogeneous appearance of the hepatic parenchyma with multiple circumscribed low attenuating lesions scattered throughout the right and left hepatic lobes, largest measuring 1.2 x 0.9 cm on image 20 of the axial series. Prior cholecystectomy. There is mild periportal edema with patent portal vein. No marginal nodularity of the liver is identified to suggest traumatic liver disease. No abdominal or pelvic ascites identified. The spleen is mildly enlarged at 14 cm. The pancreas and adrenal glands are unremarkable. Nonobstructing 2 mm calculus is seen within the superior pole left kidney. No hydronephrosis. Urinary bladder is unremarkable. Prostate is mildly prominent measuring up to oh dilatation of the infrarenal abdominal aorta measuring up to 5.1 x 4.9 cm in AP and transverse dimension. This is seen overlying of approximately 9 cm terminating at the iliac bifurcation. There is also mild aneurysmal dilatation of the left common iliac artery, 1.7 cm. Extensive vascular calcifications are present throughout. There is a small diverticulum of the proximal duodenum. There is no bowel obstruction. The colon is unremarkable. Surgical clips are seen within the right mid abdomen. There are several fat filled supraumbilical midline ventral abdominal wall hernias, largest of which measures 3.4 cm seen on image 36 of the axial series. The bones appear intact. Discogenic degeneration noted at L4-L5. IMPRESSION: 1. Heterogeneous appearance of the liver with mild periportal edema is nonspecific. No definite marginal nodularity or ascites to suggest cirrhotic liver disease. Portal vein appears to be patent. Correlate with liver function tests. 2. Multiple circumscribed low attenuating lesions scattered throughout the liver, most of which are subcentimeter are too small to characterize however would statistically favor hepatic cysts. 3. 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 4. Prior cholecystectomy. 5. Multiple fat filled abdominal wall hernias. The above report was generated using voice recognition software. It may contain grammatical, syntax or spelling errors. Electronically signed by: Hugo Logan 12/21/2016 12:36 PM Dictated Date/Time: 12/21/2016 12:23 PM
--- NOTE | 2016-12-21 13:47 | Hospitalist Progress Note ---
Hospitalist Progress Note Date of Service Dec 21, 2016. (Martha Borrero PA-C) Subjective Pt evaluation today including: conversation w/ patient, conversation w/ family , physical exam, chart review, lab review, review of studies, conversation w/ senior business consultant ([employer]), review of inpatient medication list Patient seen and evaluated. Leighton Perkins called yesterday after EGD and patient with signs of delirium and hypotension. Mentation is improving and patient is resting in bed upon exam this AM. He appears mildly lethargic. He was transfused 1 unit PRBC. He verbalizes no needs at this time. Constitutional: No fever, No chills ENT: No nasal symptoms, No trouble swallowing Respiratory: No shortness of breath Cardiovascular: No chest pain Abdomen: No pain, No nausea, No vomiting Male : No dysuria (Martha Borrero, DEBRAC) Medications Current Inpatient Medications Medications (Trade) Dose Ordered Sig/Angy Route Start Time Stop Time Status Last Admin Dose Admin Lorazepam (Ativan Inj) PRN Dosing -Active Protocol Q1H PRN IV 12/20/16 08:30 01/19/17 08:29 Pantoprazole Sodium 40 mg/ Dextrose 110 ml @ 20 mls/hr Q5H IV 12/20/16 11:30 01/19/17 11:29 12/21/16 10:09 20 MLS/HR Metoprolol Tartrate (Lopressor Iv) 5 mg Q4 PRN IV 12/20/16 08:45 01/19/17 08:44 Octreotide Acetate 500 mcg/ Sodium Chloride 105 ml @ 10 mls/hr [id number] IV 12/20/16 09:30 01/19/17 09:29 12/21/16 10:09 10 MLS/HR Ceftriaxone Sodium 2000 mg/ Dextrose 70 ml @ 140 mls/hr Q24H IV 12/20/16 10:00 12/26/16 10:29 12/21/16 10:11 140 MLS/HR Chlordiazepoxide (Librium Cap) 25 mg Q8 PO 12/21/16 14:00 12/22/16 06:01 Chlordiazepoxide (Librium Cap) 10 mg Q8 PO 12/22/16 14:00 12/23/16 06:01 Chlordiazepoxide (Librium Cap) 5 mg Q12 PO 12/23/16 21:00 12/24/16 09:01 Multivitamins (Multivitamin Tab) 1 tab QAM PO 12/21/16 09:00 01/20/17 08:59 12/21/16 10:07 1 TAB Thiamine HCl (Vitamin B-1 Tab) 100 mg DAILY PO 12/21/16 09:00 01/20/17 08:59 Folic Acid (Folvite Tab) 1 mg DAILY PO 12/21/16 09:00 01/20/17 08:59 12/21/16 10:07 1 MG Levalbuterol (Xopenex 1.25MG/ 3ML Neb) 1.25 mg Q6R PRN INH 12/20/16 20:15 01/19/17 20:14 Nadolol (Corgard Tab) 40 mg DAILY PO 12/21/16 09:00 01/20/17 08:59 12/21/16 10:06 40 MG Nicotine (Nicoderm Cq 14MG Patch) 1 patch QAM TD 12/21/16 09:00 01/20/17 08:59 12/21/16 10:07 1 PATCH Miscellaneous (Remove Nicoderm Patch) 1 ea QAM N/A 12/22/16 09:00 01/21/17 08:59 Ioversol (Optiray 320) 100 ml UD PRN IV 12/21/16 09:00 12/25/16 08:59 (Martha Borrero, DEBRAC) Objective Vital Signs Date Time Temp Pulse Resp B/P (MAP) Pulse Ox O2 Delivery O2 Flow Rate FiO2 12/21/16 12:00 37.0 80 19 94/57 (65) 98 12/21/16 12:00 Nasal Cannula 2.0 12/21/16 11:30 80 19 98 12/21/16 11:30 80 19 98 12/21/16 11:00 78 19 98 12/21/16 11:00 78 19 98 12/21/16 10:31 76 18 94/57 (65) 97 12/21/16 10:31 76 18 94/57 (69) 97 12/21/16 10:30 77 22 99 12/21/16 10:30 77 22 99 12/21/16 10:16 75 25 146/83 (100) 96 12/21/16 10:16 75 25 146/83 (104) 96 12/21/16 10:01 76 23 141/55 (69) 97 12/21/16 10:01 76 23 141/55 (83) 97 12/21/16 10:00 77 21 96 12/21/16 10:00 77 21 96 12/21/16 09:48 75 21 125/43 (70) 96 12/21/16 09:48 75 21 125/43 (54) 96 12/21/16 09:45 71 25 96 12/21/16 09:45 71 25 96 12/21/16 09:32 78 19 111/44 (66) 98 12/21/16 09:32 78 19 111/44 (58) 98 12/21/16 09:30 75 24 97 12/21/16 09:30 75 24 97 12/21/16 09:15 78 19 96 12/21/16 09:15 78 19 96 12/21/16 09:01 77 24 97/57 (70) 97 12/21/16 09:01 77 24 97/57 (62) 97 12/21/16 09:00 76 19 96 12/21/16 09:00 76 19 96 12/21/16 08:46 73 18 93/50 (60) 97 12/21/16 08:46 73 18 93/50 (64) 97 12/21/16 08:45 74 18 97 12/21/16 08:45 74 18 97 12/21/16 08:30 78 20 96 12/21/16 08:30 78 20 96 12/21/16 08:15 74 22 96 12/21/16 08:15 74 22 96 12/21/16 08:01 73 20 165/66 (91) 96 12/21/16 08:01 73 20 165/66 (99) 96 12/21/16 08:00 74 18 96 12/21/16 08:00 74 18 96 12/21/16 08:00 96 Nasal Cannula 2.0 12/21/16 07:45 76 19 95 12/21/16 07:45 76 19 95 12/21/16 07:30 75 21 97 12/21/16 07:30 75 21 97 12/21/16 07:19 75 17 140/51 (80) 94 12/21/16 07:19 75 17 140/51 (76) 94 7/7/17 07:15 72 15 95 12/21/16 07:15 72 15 95 12/21/16 07:00 71 17 93 12/21/16 07:00 71 17 93 12/21/16 06:00 76 14 127/42 (70) 95 Nasal Cannula 2.0 12/21/16 04:00 Nasal Cannula 2.0 12/21/16 04:00 37.0 67 16 117/78 (91) 97 Nasal Cannula 2.0 12/21/16 02:00 67 17 107/42 (63) 96 Nasal Cannula 3.0 12/21/16 00:00 Nasal Cannula 4.0 12/21/16 00:00 36.9 65 12 118/51 (73) 97 Nasal Cannula 3.0 12/20/16 23:00 64 10 100/47 (64) 96 12/20/16 22:31 68 18 87/36 (52) 12/20/16 22:30 68 6 95 12/20/16 22:01 74 14 130/47 (98) 95 12/20/16 22:00 75 21 94 12/20/16 22:00 37.2 71 12 130/47 (74) 94 Nasal Cannula 3.0 12/20/16 21:46 87 19 153/79 (95) 95 12/20/16 21:31 94 22 164/77 (127) 95 12/20/16 21:30 95 18 93 12/20/16 21:00 87 22 173/57 (90) 97 12/20/16 20:31 95 28 179/72 (105) 97 12/20/16 20:30 95 25 99 12/20/16 20:21 96 22 140/63 (93) 97 12/20/16 20:11 94 26 164/62 (76) 96 12/20/16 20:05 89 25 96 12/20/16 20:01 93 21 146/69 (90) 92 12/20/16 20:01 93 21 146/69 (90) 92 12/20/16 20:00 94 25 91 12/20/16 20:00 94 25 91 12/20/16 19:55 96 24 94 12/20/16 19:51 95 18 152/62 (97) 98 12/20/16 19:50 94 26 100 12/20/16 19:48 91 21 109/44 (47) 100 12/20/16 19:46 86 23 129/49 (79) 97 12/20/16 19:45 89 18 93 12/20/16 19:40 88 27 95 12/20/16 19:35 94 23 95 12/20/16 19:31 86 26 159/69 (96) 94 12/20/16 19:30 91 23 94 12/20/16 19:22 Nasal Cannula 4.0 12/20/16 19:17 85 22 97/53 (72) 95 12/20/16 19:15 36.8 89 24 97/53 94 Nasal Cannula 4 12/20/16 19:15 88 23 127/69 (78) 94 12/20/16 19:11 89 28 127/111 (115) 92 12/20/16 19:10 88 26 93 12/20/16 19:07 87 28 121/43 (67) 92 12/20/16 19:05 86 23 92 12/20/16 19:01 86 22 120/40 (71) 95 12/20/16 19:00 36.8 87 121/43 (67) 92 Nasal Cannula 4 12/20/16 19:00 87 26 92 12/20/16 18:56 88 21 126/62 (94) 94 12/20/16 18:55 85 23 100 12/20/16 18:51 86 32 123/53 (82) 99 12/20/16 18:50 83 17 110/40 (57) 99 12/20/16 18:48 77 26 174/159 (163) 99 12/20/16 18:45 84 27 100 12/20/16 18:45 36.9 110/40 (57) 93 Mask 4 12/20/16 16:32 36.9 82 20 120/46 99 Nasal Cannula 2.0 12/20/16 15:30 Nasal Cannula 2.0 12/20/16 15:30 36.9 82 20 120/46 (70) 99 Nasal Cannula 2.0 12/20/16 14:00 67 23 99 12/20/16 14:00 71 24 138/41 (73) 96 Nasal Cannula 2.0 (Martha Borrero, PA-C) Physical Exam General Appearance: no apparent distress, + pertinent finding (chronically ill- appearing) Neck: supple, no JVD, trachea midline Respiratory/Chest: lungs clear, no respiratory distress, no accessory muscle use, + decreased breath sounds Cardiovascular: regular rate, rhythm, + systolic murmur Abdomen: normal bowel sounds, non tender, soft Extremities: no pedal edema, no calf tenderness Neurologic/Psychiatric: alert Skin: normal color, warm/dry (Martha Borrero, JUNIOR) Laboratory Results Last 24 Hours Test 12/20/16 16:11 12/20/16 18:53 12/20/16 19:48 12/20/16 23:25 Bedside Glucose 178 mg/dl 177 mg/dl Hemoglobin 9.1 g/dL 7.2 g/dL Hematocrit 26.3 % 21.5 % Lactic Acid Level 6.4 mmol/L Troponin I 1.010 ng/ml 0.669 ng/ml Potassium Level 3.7 mmol/L Phosphorus Level 2.5 mg/dl Magnesium Level 1.3 mg/dl Test 12/21/16 00:31 12/21/16 00:35 12/21/16 00:45 12/21/16 05:15 Bedside Glucose 143 mg/dl Hemoglobin 7.8 g/dL 7.3 g/dL Hematocrit 22.8 % 21.1 % Urine Color DK YELLOW Urine Appearance CLEAR Urine pH 5.0 Urine Specific [place] 1.023 Urine Protein NEG Urine Glucose (UA) NEG Urine Ketones TRACE Urine Occult Blood NEG Urine Nitrite NEG Urine Bilirubin NEG Urine Urobilinogen NEG Urine Leukocyte Esterase NEG White Blood Count 5.15 K/uL Red Blood Count 2.30 M/uL Mean Corpuscular Volume 91.7 fL Mean Corpuscular Hemoglobin 31.7 pg Mean Corpuscular Hemoglobin Concent 34.6 g/dl Platelet Count 53 K/uL Mean Platelet Volume 10.1 fL Neutrophils (%) (Auto) 76.3 % Lymphocytes (%) (Auto) 16.3 % Monocytes (%) (Auto) 6.8 % Eosinophils (%) (Auto) 0.2 % Basophils (%) (Auto) 0.0 % Neutrophils # (Auto) 3.93 K/uL Lymphocytes # (Auto) 0.84 K/uL Monocytes # (Auto) 0.35 K/uL Eosinophils # (Auto) 0.01 K/uL Basophils # (Auto) 0.00 K/uL RDW Standard Deviation 51.1 fL RDW Coefficient of Variation 15.2 % Immature Granulocyte % (Auto) 0.4 % Immature Granulocyte # (Auto) 0.02 K/uL Platelet Estimate DECREASED Red Blood Cell Morphology Unremarkable Sodium Level 137 mmol/L Potassium Level 3.9 mmol/L Chloride Level 103 mmol/L Carbon Dioxide Level 30 mmol/L Anion Gap 4.0 mmol/L Blood Urea Nitrogen 42 mg/dl Creatinine 1.20 mg/dl Est Creatinine Clear Calc Drug Dose 59.1 ml/min Estimated GFR () 70.6 Estimated GFR (Non- 60.9 BUN/Creatinine Ratio 35.2 Random Glucose 131 mg/dl Calcium Level 7.8 mg/dl Phosphorus Level 2.8 mg/dl Magnesium Level 2.3 mg/dl Test 12/21/16 10:38 Prothrombin Time 15.7 SECONDS Prothromb Time International Ratio 1.4 (Martha Borrero, PAKristinaC) Assessment and Plan Mr. Maya is a 71 y/o male with PMHx of ETOH Abuse, HTN, HLD, S/P Colon Resection (denies cancer?), and possible H/O PUD who presents to the ED by EMS with persistent SOB and melena/hemoptysis. Code Purple on 12/20 after EGD Acute Blood Loss Anemia 2/2 Hemoptysis and Melena: - Transfused 1 unit 12/21 and will continue to monitor - EGD with gastritis - question of portal gastropathy - CT Abd/pelvis and portal dopplers - evidence of multiple lesions likely cysts in liver - Octreotide and Protonix bolus/gtt - Ceftriaxone 2 g IV daily - GI following A. Flutter with RVR and SVT: RESOLVED - Currently NSR - Received Adenosine and Cardizem with conversion without need for cardioversion upon admission Elevated Troponin: - Likely demand ischemia from SVT/A Flutter RVR and acute blood loss - Echocardiogram - pending Elevated Lactic Acid: IMPROVING - Trending down Possible HAYLEY: Unknown baseline - RESOLVED - Monitor ETOH Abuse: - AWSS protocol with vitamin repletion, Librium, PRN Ativan HTN: - Hold home medication of Lisinopril, Atenolol, and HCTZ - Nadolol daily HLD: - Hold simvastatin DVT Prophylaxis: FRANC/SCDS Code Status: FULL RESUSCITATION Disposition: Monitor in ICU - discussed case with Dr. Campbell - health services rn consult - when not critical will place PT/OT evaluations Continued [facility] stay due to: multiple IV medications needed Discharge planning: uncertain (Martha Borrero PA-C) Reviewed: Pt Seen/Exam by Me (Priscilla Mitchell, ) History Pt is resting comfortably. Son is present and states that he has been much improved today. Mentating and interacting as per his usual. Did attempt PO, but appetite is down. Did tolerate what he took though. No c/o pain, n/v, SOB. Agree with HPI/ROS as noted. (Priscilla Mitchell, ) General Appearance: WD/WN, no apparent distress Respiratory: normal breath sounds, no respiratory distress Cardiovascular: normal peripheral pulses, regular rate, rhythm Gastrointestinal: non tender, soft Extremities: non-tender, no pedal edema Neurologic/Psychiatric: alert Skin Characteristics: normal color, warm/dry (Priscilla Mitchell, ) Assessment/Plan Agree with plan as outlined above EGD noted for acute gastritis and nonbleeding erosions, LA grade B esophagitis Ongoing PPI, octreotide Clears as tolerated Following trops INR elevated (Priscilla Micthell, DO)
[2016-12-21] MEDS: THIAMINE HCL 100 MG TAB PO SCH (14:43)
[2016-12-21] MEDS: CHLORDIAZEPOXIDE 25MG Q8H DOSE PO SCH ×2 (14:45→21:51)
--- NOTE | 2016-12-21 17:21 | ECHOCARDIOGRAM REPORT ---
*NOTICE TO RECEIVING [employer] This information is strictly Confidential and protected under [place] law. [place] law prohibits you from making any further disclosure of this information unless further disclosure is expressly permitted by the written consent of the person to whom it pertains or is authorized by law. A general authorization for the release of medical or other information is not sufficient for this purpose. Hospital accepts no responsibility if the information is made available to any other person, INCLUDING THE PATIENT. Interpretation Summary * Name: JARVIS MARTINEZ Study Date: 12/21/2016 12:46 PM BP: 94/57 mmHg * [facility] HR: 75 * : 1945 (M/d/yyyy) Gender: Male Height: 70 in * Age: 71 yrs Ethnicity: [place] Weight: 183 lb * Ordering Physician: Luis Campbell * Referring Physician: Self, Referred * Performed By: Ayana Fishman RCS * * Reason For Study: MURMUR * BSA: 2.0 m2 * Hyperdynamic left ventricular systolic function. * Mild left ventricular hypertrophy except for disproportion and basal septal thickening. * Left ventricular diastolic dysfunction. * Normal right ventricular size and systolic function. * Mild left atrial dilatation. * Moderate calcific aortic stenosis. * Trace aortic regurgitation. * Mild mitral regurgitation. * Trace tricuspid regurgitation. * Mild pulmonary hypertension. Procedure Details * A complete two-dimensional transthoracic echocardiogram was performed (2D, M-mode, Doppler and color flow Doppler). Left Ventricle * The left ventricle is normal in size. * Mild left ventricular hypertrophy except for disproportionate thickening of the basal septum. * The left ventricle is hyperdynamic. * Ejection Fraction = >70 %. * A full diastolic examination was done with clinical findings of Class I diastolic dysfunction. * No regional wall motion abnormalities noted. Right Ventricle * The right ventricle is normal in size and function. Atria * The left atrium is mildly dilated. * Right atrial size is normal. * No ASD detected; PFO is not assessed. Mitral Valve * There is mild mitral annular calcification. * There is no mitral valve stenosis. * There is mild mitral regurgitation. Tricuspid Valve * The tricuspid valve is normal. * There is no tricuspid stenosis. * There is trace tricuspid regurgitation. * Right ventricular systolic pressure is elevated at 30-40mmHg. Aortic Valve * The aortic valve is trileaflet. * The valve is calcified and has decreased opening on 2D imaging. * Dimensionless aortic valve index 0.38. * Moderate valvular aortic stenosis. * Trace aortic regurgitation. Pulmonic Valve * The pulmonic valve is not well visualized. * The pulmonary valve is inadequately visualized, but the Doppler data is adequate for interpretation. * Pulmonic stenosis is absent. * There is no significant pulmonary regurgitation. Great Vessels * The aortic root is normal size. Pericardium/Pleural * There is no pericardial effusion. Great Vessels * Normal inferior vena cava diameter and respiratory variation suggests normal central venous pressure. MMode 2D Measurements and Calculations IVSd 1.3 cm LVIDd 4.9 cm LVIDs 3.2 cm LVPWd 1.3 cm IVS/LVPW 0.98 FS 35.8 % EDV(Teich) 113.4 ml ESV(Teich) 39.5 ml EF(Teich) 65.1 % EDV(cubed) 118.4 ml ESV(cubed) 31.4 ml EF(cubed) 73.5 % LV mass(C)d 249.2 grams LV mass(C)dI 124.0 grams/m\S\2 SV(Teich) 73.8 ml SI(Teich) 36.7 ml/m\S\2 SV(cubed) 87.0 ml SI(cubed) 43.3 ml/m\S\2 Ao root diam 3.2 cm Ao root area 7.9 cm\S\2 ACS 1.5 cm LA dimension 4.3 cm LA/Ao 1.4 LVAd ap4 36.1 cm\S\2 LVLd ap4 8.3 cm EDV(MOD-sp4) 129.4 ml EDV(sp4-el) 133.7 ml LVAs ap4 22.8 cm\S\2 LVLs ap4 7.1 cm ESV(MOD-sp4) 59.6 ml ESV(sp4-el) 61.7 ml EF(MOD-sp4) 53.9 % EF(sp4-el) 53.8 % LVAd ap2 48.0 cm\S\2 LVLd ap2 9.8 cm EDV(MOD-sp2) 190.1 ml EDV(sp2-el) 198.5 ml LVAs ap2 18.8 cm\S\2 LVLs ap2 7.2 cm ESV(MOD-sp2) 44.7 ml ESV(sp2-el) 41.8 ml EF(MOD-sp2) 76.5 % EF(sp2-el) 78.9 % LVLd %diff 16.0 % EDV(MOD-bp) 170.4 ml LVLs %diff 1.0 % ESV(MOD-bp) 50.2 ml EF(MOD-bp) 70.6 % SV(MOD-sp4) 69.8 ml SI(MOD-sp4) 34.7 ml/m\S\2 SV(MOD-sp2) 145.3 ml SI(MOD-sp2) 72.3 ml/m\S\2 SV(MOD-bp) 120.2 ml SI(MOD-bp) 59.8 ml/m\S\2 SV(sp4-el) 72.0 ml SI(sp4-el) 35.8 ml/m\S\2 SV(sp2-el) 156.7 ml SI(sp2-el) 78.0 ml/m\S\2 Doppler Measurements and Calculations MV E max ezequiel 135.8 cm/sec MV A max ezequiel 136.0 cm/sec MV E/A 10 MV P1/2t max ezequiel 153.0 cm/sec MV P1/2t 64.2 msec MVA(P1/2t) 3.4 cm\S\2 MV dec slope 697.8 cm/sec\S\2 MV dec time 0.26 sec Ao V2 max 274.8 cm/sec Ao max PG 30.2 mmHg Ao max PG (full) 26.0 mmHg AI max ezequiel 346.7 cm/sec AI max PG 48.1 mmHg AI dec slope 227.6 cm/sec\S\2 AI P1/2t 446.2 msec LV V1 max PG 4.2 mmHg LV V1 max 102.5 cm/sec MR max ezequiel 672.6 cm/sec MR max PG 181.4 mmHg PA V2 max 111.8 cm/sec PA max PG 5.0 mmHg TR max ezequiel 287.9 cm/sec
--- NOTE | 2016-12-21 17:22 | Gastroenterology Progress Note ---
Progress Note Date of Service: Dec 21, 2016 Subjective Pt evaluation today including: conversation w/ patient, chart review Review of Systems Abdomen: + GI bleeding (no hematemesis or melena) Medications Current Inpatient Medications Medications (Trade) Dose Ordered Sig/Angy Route Start Time Stop Time Status Last Admin Dose Admin Lorazepam (Ativan Inj) PRN Dosing -Active Protocol Q1H PRN IV 12/20/16 08:30 01/19/17 08:29 Pantoprazole Sodium 40 mg/ Dextrose 110 ml @ 20 mls/hr Q5H IV 12/20/16 11:30 01/19/17 11:29 12/21/16 14:45 20 MLS/HR Metoprolol Tartrate (Lopressor Iv) 5 mg Q4 PRN IV 12/20/16 08:45 01/19/17 08:44 Octreotide Acetate 500 mcg/ Sodium Chloride 105 ml @ 10 mls/hr [id number] IV 12/20/16 09:30 01/19/17 09:29 12/21/16 10:09 10 MLS/HR Ceftriaxone Sodium 2000 mg/ Dextrose 70 ml @ 140 mls/hr Q24H IV 12/20/16 10:00 12/26/16 10:29 12/21/16 10:11 140 MLS/HR Chlordiazepoxide (Librium Cap) 25 mg Q8 PO 12/21/16 14:00 12/22/16 06:01 12/21/16 14:45 25 MG Chlordiazepoxide (Librium Cap) 10 mg Q8 PO 12/22/16 14:00 12/23/16 06:01 Chlordiazepoxide (Librium Cap) 5 mg Q12 PO 12/23/16 21:00 12/24/16 09:01 Multivitamins (Multivitamin Tab) 1 tab QAM PO 12/21/16 09:00 01/20/17 08:59 12/21/16 10:07 1 TAB Thiamine HCl (Vitamin B-1 Tab) 100 mg DAILY PO 12/21/16 09:00 01/20/17 08:59 12/21/16 14:43 100 MG Folic Acid (Folvite Tab) 1 mg DAILY PO 12/21/16 09:00 01/20/17 08:59 12/21/16 10:07 1 MG Levalbuterol (Xopenex 1.25MG/ 3ML Neb) 1.25 mg Q6R PRN INH 12/20/16 20:15 01/19/17 20:14 Nadolol (Corgard Tab) 40 mg DAILY PO 12/21/16 09:00 01/20/17 08:59 12/21/16 10:06 40 MG Nicotine (Nicoderm Cq 14MG Patch) 1 patch QAM TD 12/21/16 09:00 01/20/17 08:59 12/21/16 10:07 1 PATCH Miscellaneous (Remove Nicoderm Patch) 1 ea QAM N/A 12/22/16 09:00 01/21/17 08:59 Ioversol (Optiray 320) 100 ml UD PRN IV 12/21/16 09:00 12/25/16 08:59 Objective Vital Signs Date Time Temp Pulse Resp B/P (MAP) Pulse Ox O2 Delivery O2 Flow Rate FiO2 12/21/16 16:00 36.8 66 18 125/53 (77) 97 Nasal Cannula 2.0 12/21/16 16:00 97 Nasal Cannula 2.0 12/21/16 14:00 72 24 148/63 (91) 96 Room Air 12/21/16 12:00 37.0 80 19 94/57 (65) 98 12/21/16 12:00 Nasal Cannula 2.0 12/21/16 11:30 80 19 98 12/21/16 11:30 80 19 98 12/21/16 11:00 78 19 98 12/21/16 11:00 78 19 98 12/21/16 10:31 76 18 94/57 (65) 97 12/21/16 10:31 76 18 94/57 (69) 97 12/21/16 10:30 77 22 99 12/21/16 10:30 77 22 99 12/21/16 10:16 75 25 146/83 (100) 96 12/21/16 10:16 75 25 146/83 (104) 96 12/21/16 10:01 76 23 141/55 (69) 97 12/21/16 10:01 76 23 141/55 (83) 97 12/21/16 10:00 77 21 96 12/21/16 10:00 77 21 96 12/21/16 09:48 75 21 125/43 (70) 96 12/21/16 09:48 75 21 125/43 (54) 96 12/21/16 09:45 71 25 96 12/21/16 09:45 71 25 96 12/21/16 09:32 78 19 111/44 (66) 98 12/21/16 09:32 78 19 111/44 (58) 98 12/21/16 09:30 75 24 97 12/21/16 09:30 75 24 97 12/21/16 09:15 78 19 96 12/21/16 09:15 78 19 96 12/21/16 09:01 77 24 97/57 (70) 97 12/21/16 09:01 77 24 97/57 (62) 97 12/21/16 09:00 76 19 96 12/21/16 09:00 76 19 96 12/21/16 08:46 73 18 93/50 (60) 97 12/21/16 08:46 73 18 93/50 (64) 97 12/21/16 08:45 74 18 97 12/21/16 08:45 74 18 97 12/21/16 08:30 78 20 96 12/21/16 08:30 78 20 96 12/21/16 08:15 74 22 96 12/21/16 08:15 74 22 96 12/21/16 08:01 73 20 165/66 (91) 96 12/21/16 08:01 73 20 165/66 (99) 96 12/21/16 08:00 74 18 96 12/21/16 08:00 74 18 96 12/21/16 08:00 96 Nasal Cannula 2.0 12/21/16 07:45 76 19 95 12/21/16 07:45 76 19 95 12/21/16 07:30 75 21 97 12/21/16 07:30 75 21 97 12/21/16 07:19 75 17 140/51 (80) 94 12/21/16 07:19 75 17 140/51 (76) 94 12/21/16 07:15 72 15 95 12/21/16 07:15 72 15 95 12/21/16 07:00 71 17 93 12/21/16 07:00 71 17 93 12/21/16 06:00 76 14 127/42 (70) 95 Nasal Cannula 2.0 12/21/16 04:00 Nasal Cannula 2.0 12/21/16 04:00 37.0 67 16 117/78 (91) 97 Nasal Cannula 2.0 12/21/16 02:00 67 17 107/42 (63) 96 Nasal Cannula 3.0 12/21/16 00:00 Nasal Cannula 4.0 12/21/16 00:00 36.9 65 12 118/51 (73) 97 Nasal Cannula 3.0 12/20/16 23:00 64 10 100/47 (64) 96 12/20/16 22:31 68 18 87/36 (52) 12/20/16 22:30 68 6 95 12/20/16 22:01 74 14 130/47 (98) 95 12/20/16 22:00 75 21 94 12/20/16 22:00 37.2 71 12 130/47 (74) 94 Nasal Cannula 3.0 12/20/16 21:46 87 19 153/79 (95) 95 12/20/16 21:31 94 22 164/77 (127) 95 12/20/16 21:30 95 18 93 12/20/16 21:00 87 22 173/57 (90) 97 12/20/16 20:31 95 28 179/72 (105) 97 12/20/16 20:30 95 25 99 12/20/16 20:21 96 22 140/63 (93) 97 12/20/16 20:11 94 26 164/62 (76) 96 12/20/16 20:05 89 25 96 12/20/16 20:01 93 21 146/69 (90) 92 12/20/16 20:01 93 21 146/69 (90) 92 12/20/16 20:00 94 25 91 12/20/16 20:00 94 25 91 12/20/16 19:55 96 24 94 12/20/16 19:51 95 18 152/62 (97) 98 12/20/16 19:50 94 26 100 12/20/16 19:48 91 21 109/44 (47) 100 12/20/16 19:46 86 23 129/49 (79) 97 12/20/16 19:45 89 18 93 12/20/16 19:40 88 27 95 12/20/16 19:35 94 23 95 12/20/16 19:31 86 26 159/69 (96) 94 12/20/16 19:30 91 23 94 12/20/16 19:22 Nasal Cannula 4.0 12/20/16 19:17 85 22 97/53 (72) 95 12/20/16 19:15 36.8 89 24 97/53 94 Nasal Cannula 4 12/20/16 19:15 88 23 127/69 (78) 94 12/20/16 19:11 89 28 127/111 (115) 92 12/20/16 19:10 88 26 93 12/20/16 19:07 87 28 121/43 (67) 92 12/20/16 19:05 86 23 92 12/20/16 19:01 86 22 120/40 (71) 95 12/20/16 19:00 36.8 87 121/43 (67) 92 Nasal Cannula 4 12/20/16 19:00 87 26 92 12/20/16 18:56 88 21 126/62 (94) 94 12/20/16 18:55 85 23 100 12/20/16 18:51 86 32 123/53 (82) 99 12/20/16 18:50 83 17 110/40 (57) 99 12/20/16 18:48 77 26 174/159 (163) 99 12/20/16 18:45 84 27 100 12/20/16 18:45 36.9 110/40 (57) 93 Mask 4 Laboratory Results Last 24 Hours Test 12/20/16 18:53 12/20/16 19:48 12/20/16 23:25 12/21/16 00:31 Hemoglobin 9.1 g/dL 7.2 g/dL Hematocrit 26.3 % 21.5 % Lactic Acid Level 6.4 mmol/L Troponin I 1.010 ng/ml 0.669 ng/ml Bedside Glucose 177 mg/dl 143 mg/dl Potassium Level 3.7 mmol/L Phosphorus Level 2.5 mg/dl Magnesium Level 1.3 mg/dl Test 12/21/16 00:35 12/21/16 00:45 12/21/16 05:15 12/21/16 10:38 Hemoglobin 7.8 g/dL 7.3 g/dL Hematocrit 22.8 % 21.1 % Urine Color DK YELLOW Urine Appearance CLEAR Urine pH 5.0 Urine Specific Emerson 1.023 Urine Protein NEG Urine Glucose (UA) NEG Urine Ketones TRACE Urine Occult Blood NEG Urine Nitrite NEG Urine Bilirubin NEG Urine Urobilinogen NEG Urine Leukocyte Esterase NEG White Blood Count 5.15 K/uL Red Blood Count 2.30 M/uL Mean Corpuscular Volume 91.7 fL Mean Corpuscular Hemoglobin 31.7 pg Mean Corpuscular Hemoglobin Concent 34.6 g/dl Platelet Count 53 K/uL Mean Platelet Volume 10.1 fL Neutrophils (%) (Auto) 76.3 % Lymphocytes (%) (Auto) 16.3 % Monocytes (%) (Auto) 6.8 % Eosinophils (%) (Auto) 0.2 % Basophils (%) (Auto) 0.0 % Neutrophils # (Auto) 3.93 K/uL Lymphocytes # (Auto) 0.84 K/uL Monocytes # (Auto) 0.35 K/uL Eosinophils # (Auto) 0.01 K/uL Basophils # (Auto) 0.00 K/uL RDW Standard Deviation 51.1 fL RDW Coefficient of Variation 15.2 % Immature Granulocyte % (Auto) 0.4 % Immature Granulocyte # (Auto) 0.02 K/uL Platelet Estimate DECREASED Red Blood Cell Morphology Unremarkable Sodium Level 137 mmol/L Potassium Level 3.9 mmol/L Chloride Level 103 mmol/L Carbon Dioxide Level 30 mmol/L Anion Gap 4.0 mmol/L Blood Urea Nitrogen 42 mg/dl Creatinine 1.20 mg/dl Est Creatinine Clear Calc Drug Dose 59.1 ml/min Estimated GFR () 70.6 Estimated GFR (Non- 60.9 BUN/Creatinine Ratio 35.2 Random Glucose 131 mg/dl Calcium Level 7.8 mg/dl Phosphorus Level 2.8 mg/dl Magnesium Level 2.3 mg/dl Prothrombin Time 15.7 SECONDS Prothromb Time International Ratio 1.4 Test 12/21/16 17:13 Assessment and Plan The patient received 2 units of blood today for hemoglobin of 7.3. Repeat H&H is pending at this time. He reports no nausea or vomiting no hematemesis or melena. CT scan of the abdomen and pelvis showed no nodularity to the liver although it was heterogeneous in texture. There is no ascites present. A 5.1 cm aortic Aneurysm was present. The portal vein appeared patent on CT scan. His upper endoscopy yesterday by Dr. Larry carson showed diffuse gastritis biopsies are pending. Plan is to advance his diet to full liquid diet and continue to follow his blood counts. Dr. Gillespie will be covering over the weekend.
[2016-12-21 17:26] LABS: HEMATOCRIT 25.3 % (42-52)
[2016-12-21 17:48] LABS: FERRITIN 1186.9 ng/ml (8.0-388.0)
[2016-12-22] VITALS (21 sets, daily range): BP systolic 118–170; BP diastolic 44–85; PULSE 56–67; TEMP 36.6–37; O2SAT 94–99
[2016-12-22] MEDS: PANTOprazole INJ 40 MG in DEXTROSE 5% 100ML 100 ML IV SCH ×3 (00:01→08:36)
[2016-12-22] MEDS: GUAIFENESIN SUGAR FREE 100 MG/5 ML UDC PO PRN ×3 (02:59→19:40)
[2016-12-22 05:30] LABS: HEMATOCRIT 23.1 % (42-52); MEAN CELL VOLUME 91.3 fL (80-100); MEAN CORPUSCULAR HEMOGLOBIN 31.6 pg (25-34); MEAN CORPUSCULAR HGB CONC 34.6 g/dl (32-36); RED BLOOD COUNT 2.53 M/uL (4.7-6.1); WHITE BLOOD COUNT 4.41 K/uL (4.8-10.8)
[2016-12-22 05:40] LABS: INR 1.5 (0.9-1.1); PROTHROMBIN TIME (PATIENT) 15.9 SECONDS (9.0-12.0)
[2016-12-22 05:50] LABS: MEAN PLATELET VOLUME 10.3 fL (7.4-10.4); PLATELET COUNT 51 K/uL (130-400)
[2016-12-22 06:23] LABS: ALB/GLOB RATIO 0.7 (0.9-2); CALCIUM 7.7 mg/dl (8.5-10.1); CREATININE 0.86 mg/dl (0.60-1.40); MAGNESIUM 1.8 mg/dl (1.8-2.4); PHOSPHORUS 2.5 mg/dl (2.5-4.9); POTASSIUM 3.8 mmol/L (3.5-5.1)
[2016-12-22] MEDS ORDERED: POTASSIUM CHLORIDE 20 MEQ TABCR PO STA (06:29)
[2016-12-22] MEDS: THIAMINE HCL 100 MG TAB PO SCH (08:31)
[2016-12-22] MEDS: MULTIVITAMIN TAB PO SCH (08:32)
[2016-12-22] MEDS: NICOTINE 14 MG/24 HR TDSY TD SCH (08:33)
--- NOTE | 2016-12-22 08:34 | Critical Care Progress Note ---
Critical Care Progress Note Date of Service Dec 22, 2016. ICU Day ICU Day Number: [address] Campbell Subjective Feels sleepy no chest pain no shortness of breath. Requests Chapstick for dry lips Objective Vital Signs - as noted Laboratory Data - as noted Physical Exam: General - NAD, Resting Quietly in bed on his right side. Eyes - PERRL, EOMI No icterus, gaze conjugate ENT - Mucosa dry, no lesions or candidiasis Neck - Supple, trachea midline, no masses or lymphadenopathy, no JVD or bruits Lungs - No paradoxical chest wall movement, clear and diminished to auscultation bilaterally, no wheezes, rales, or rhonchi Heart - Reg rate and rhythm, Grade 3 systolic murmur noted No rubs, clicks, or gallops appreciated Abdomen - BS present, no bruits noted, tympanic to percussion, soft, nontender, nondistended, no organomegaly Extremities - No edema, pedal pulses intact Neuro - A & O x 2 Strength extremities equal and appropriate bilaterally Reflexes: normal and equal CN:PERRL, EOMI, no facial asymmetry, uvula/tongue midline Current SOFA Score SOFA Score Response (Comments) Value Platelets (x10) < 100 2 Bilirubin (mg/dL) < 1.2 0 Birney Coma Score 15 0 Level of Hypotension No Hypotension 0 Creatinine (mg/dL) < 1.2 0 Total 2 Previous SOFA Scores 5 J 12/21/2016 Assessment & Plan (1) GI bleed (2) Atrial flutter with rapid ventricular response (3) HTN (hypertension) (4) HLD (hyperlipidemia) (5) Unresponsive episode Reason Critically Ill: Patient is an 71-year-old male who is transferred to the ICU for gastrointestinal bleeding. PLAN: Neuro: * Heavy alcohol use * High risk for withdrawal, CIWA precautions * Empiric Librium taper Resp: * History tobacco abuse * Nebs when necessary wean oxygen CV: * A. Fib RVR in ED now converted * [id number] score: 2, moderate to high risk (estimated 2% stroke risk annually ) * HAS-BLED 4-5 (high risk for major bleeding approximately 9% annually * Paroxysmal atrial fibrillation likely stress response related to acute illness , would D for systemic anticoagulation given extremely high bleeding risk * Incidental finding of 5.1 cm aortic aneurysm, outpatient follow-up with vascular surgery for further evaluation and management * Utilize nadolol for portal gastropathy as well as hypertension, and paroxysmal A. fib * Increased dose to 80 today, lowest systolic blood pressure 128, highest recorded yesterday 170 systolic Fluids/Renal: * HAYLEY: Resolved) * Tolerating full diet discontinuing maintenance fluid ID: * Possible portal gastropathy, 7 days Rocephin prophylaxis GI/Nutrition: * Completed 48 hours of octreotide infusion * Protonix infusion for 72 hours transition to twice a day dosing * Trend H&H: Transfuse < 7.5 (Consent on Chart) tolerated 1 unit packed red blood cells yesterday * EGD performed 12/20: * "There was no active bleeding throughout the upper endoscopy. Samples were taken of the gastric mucosa for H. pylori. The pattern of gastritis however is diffuse in nature and may reflect either acute gastritis, H. pylori gastritis, or possibly diffuse portal hypertensive gastropathy. " Dr. Mi * Will continue IV Rocephin at this time for prophylaxis * Continue nadolol Heme: * Acute blood loss anemia * Check retake count for adequate bone marrow response * Thrombocytopenia * Mechanical DVT prophylaxis * Continued mild coagulopathy * Multivitamin with oral vitamin K Endocrine: * Accu-Checks per protocol, started insulin infusion for 2 blood sugars greater than 180 * No Known Diagnosis of DM or Thyroid Dz Stable for downgraded from ICU to telemetry status Consults & Procedures Consultants: GI: Dr. Mi Procedures: EGD: 12/20 Data Medications: Current Inpatient Medications Medications (Trade) Dose Ordered Sig/Angy Route Start Time Stop Time Status Last Admin Dose Admin Lorazepam (Ativan Inj) PRN Dosing -Active Protocol Q1H PRN IV 12/20/16 08:30 01/19/17 08:29 Pantoprazole Sodium 40 mg/ Dextrose 110 ml @ 20 mls/hr Q5H IV 12/20/16 11:30 01/19/17 11:29 12/22/16 05:17 20 MLS/HR Metoprolol Tartrate (Lopressor Iv) 5 mg Q4 PRN IV 12/20/16 08:45 01/19/17 08:44 Octreotide Acetate 500 mcg/ Sodium Chloride 105 ml @ 10 mls/hr [id number] IV 12/20/16 09:30 01/19/17 09:29 12/21/16 21:51 10 MLS/HR Ceftriaxone Sodium 2000 mg/ Dextrose 70 ml @ 140 mls/hr Q24H IV 12/20/16 10:00 12/26/16 10:29 12/21/16 10:11 140 MLS/HR Chlordiazepoxide (Librium Cap) 10 mg Q8 PO 12/22/16 14:00 12/23/16 06:01 Chlordiazepoxide (Librium Cap) 5 mg Q12 PO 12/23/16 21:00 12/24/16 09:01 Multivitamins (Multivitamin Tab) 1 tab QAM PO 12/21/16 09:00 01/20/17 08:59 12/21/16 10:07 1 TAB Thiamine HCl (Vitamin B-1 Tab) 100 mg DAILY PO 12/21/16 09:00 01/20/17 08:59 12/21/16 14:43 100 MG Folic Acid (Folvite Tab) 1 mg DAILY PO 12/21/16 09:00 01/20/17 08:59 12/21/16 10:07 1 MG Levalbuterol (Xopenex 1.25MG/ 3ML Neb) 1.25 mg Q6R PRN INH 12/20/16 20:15 01/19/17 20:14 Nadolol (Corgard Tab) 40 mg DAILY PO 12/21/16 09:00 01/20/17 08:59 12/21/16 10:06 40 MG Nicotine (Nicoderm Cq 14MG Patch) 1 patch QAM TD 12/21/16 09:00 01/20/17 08:59 12/21/16 10:07 1 PATCH Miscellaneous (Remove Nicoderm Patch) 1 ea QAM N/A 12/22/16 09:00 01/21/17 08:59 Ioversol (Optiray 320) 100 ml UD PRN IV 12/21/16 09:00 12/25/16 08:59 Guaifenesin (Robitussin Sugar Free Syrup) 100 mg Q6H PRN PO 12/22/16 02:45 01/21/17 02:44 12/22/16 02:59 100 MG Vital Signs: Date Time Temp Pulse Resp B/P (MAP) Pulse Ox O2 Delivery O2 Flow Rate FiO2 12/22/16 06:00 60 19 128/45 (72) 97 Nasal Cannula 2.0 12/22/16 04:00 96 Nasal Cannula 2.0 12/22/16 04:00 36.7 63 19 126/48 (74) 96 Nasal Cannula 2.0 12/22/16 02:00 67 18 133/49 (77) 94 Nasal Cannula 2.0 12/22/16 01:01 61 20 131/50 (77) 95 Nasal Cannula 2.0 12/22/16 00:00 36.8 65 21 146/57 (86) 94 Nasal Cannula 2.0 12/22/16 00:00 98 Nasal Cannula 2.0 12/21/16 23:01 69 23 144/52 (82) 93 Nasal Cannula 2.0 12/21/16 22:00 65 27 170/55 (93) 95 Nasal Cannula 2.0 12/21/16 20:00 36.8 65 22 169/62 (97) 90 Room Air 12/21/16 19:41 92 Room Air 12/21/16 18:00 69 20 163/65 (97) 94 Nasal Cannula 1.0 12/21/16 16:00 36.8 66 18 125/53 (77) 97 Nasal Cannula 2.0 12/21/16 16:00 97 Nasal Cannula 2.0 12/21/16 14:00 72 24 148/63 (91) 96 Room Air 12/21/16 12:00 37.0 80 19 94/57 (65) 98 12/21/16 12:00 Nasal Cannula 2.0 12/21/16 11:30 80 19 98 12/21/16 11:30 80 19 98 12/21/16 11:00 78 19 98 12/21/16 11:00 78 19 98 12/21/16 10:31 76 18 94/57 (65) 97 12/21/16 10:31 76 18 94/57 (69) 97 12/21/16 10:30 77 22 99 12/21/16 10:30 77 22 99 12/21/16 10:16 75 25 146/83 (100) 96 12/21/16 10:16 75 25 146/83 (104) 96 12/21/16 10:01 76 23 141/55 (69) 97 12/21/16 10:01 76 23 141/55 (83) 97 12/21/16 10:00 77 21 96 12/21/16 10:00 77 21 96 12/21/16 09:48 75 21 125/43 (70) 96 12/21/16 09:48 75 21 125/43 (54) 96 12/21/16 09:45 71 25 96 12/21/16 09:45 71 25 96 12/21/16 09:32 78 19 111/44 (66) 98 12/21/16 09:32 78 19 111/44 (58) 98 12/21/16 09:30 75 24 97 12/21/16 09:30 75 24 97 12/21/16 09:15 78 19 96 12/21/16 09:15 78 19 96 12/21/16 09:01 77 24 97/57 (70) 97 12/21/16 09:01 77 24 97/57 (62) 97 12/21/16 09:00 76 19 96 12/21/16 09:00 76 19 96 12/21/16 08:46 73 18 93/50 (60) 97 12/21/16 08:46 73 18 93/50 (64) 97 12/21/16 08:45 74 18 97 12/21/16 08:45 74 18 97 12/21/16 08:30 78 20 96 12/21/16 08:30 78 20 96 12/21/16 08:15 74 22 96 12/21/16 08:15 74 22 96 12/21/16 08:01 73 20 165/66 (91) 96 12/21/16 08:01 73 20 165/66 (99) 96 12/21/16 08:00 74 18 96 12/21/16 08:00 74 18 96 12/21/16 08:00 96 Nasal Cannula 2.0 Laboratory Results: Last 24 Hours Test 12/21/16 10:38 12/21/16 17:13 12/22/16 05:11 Prothrombin Time 15.7 SECONDS 15.9 SECONDS Prothromb Time International Ratio 1.4 1.5 Hemoglobin 8.8 g/dL 8.0 g/dL Hematocrit 25.3 % 23.1 % Iron Level 166 mcg/dl Total Iron Binding Capacity 184 mcg/dl Ferritin 1186.9 ng/ml White Blood Count 4.41 K/uL Red Blood Count 2.53 M/uL Mean Corpuscular Volume 91.3 fL Mean Corpuscular Hemoglobin 31.6 pg Mean Corpuscular Hemoglobin Concent 34.6 g/dl RDW Standard Deviation 53.8 fL RDW Coefficient of Variation 16.3 % Platelet Count 51 K/uL Mean Platelet Volume 10.3 fL Sodium Level 139 mmol/L Potassium Level 3.8 mmol/L Chloride Level 104 mmol/L Carbon Dioxide Level 31 mmol/L Anion Gap 4.0 mmol/L Blood Urea Nitrogen 26 mg/dl Creatinine 0.86 mg/dl Est Creatinine Clear Calc Drug Dose 82.5 ml/min Estimated GFR () 101.8 Estimated GFR (Non- 87.9 BUN/Creatinine Ratio 30.0 Random Glucose 91 mg/dl Calcium Level 7.7 mg/dl Phosphorus Level 2.5 mg/dl Magnesium Level 1.8 mg/dl Total Bilirubin 0.8 mg/dl Aspartate Amino Transf (AST/SGOT) 76 U/L Alanine Aminotransferase (ALT/SGPT) 33 U/L Alkaline Phosphatase 34 U/L Total Protein 5.2 gm/dl Albumin 2.1 gm/dl Globulin 3.1 gm/dl Albumin/Globulin Ratio 0.7
[2016-12-22] MEDS: CHLORDIAZEPOXIDE 25MG Q8H DOSE PO SCH (08:35)
[2016-12-22] MEDS: OCTREOTIDE ACETATE INJ 500 MCG in NSS 100ML IV SCH (08:36)
[2016-12-22] MEDS ORDERED: PHYTONADIONE 5 MG TAB PO SCH (09:00)
[2016-12-22] MEDS: NADOLOL 40 MG TAB PO SCH (09:00)
[2016-12-22] MEDS: CEROVITE ADV FORMULA TAB PO SCH (09:00)
[2016-12-22] MEDS: CEFTRIAXONE SOD INJ 2000 MG in DEXTROSE 5% 50ML IV SCH (10:26)
[2016-12-22] MEDS: CHLORDIAZEPOXIDE 10MG Q8H DOSE PO SCH ×2 (14:32→21:11)
--- NOTE | 2016-12-22 16:08 | Progress Note ---
Subjective Date of Service: Dec 22, 2016. Subjective Pt evaluation today including: conversation w/ patient, conversation w/ family , chart review, conversation w/ [employer] [facility] consultant Pt is feeling improved. He has tolerated PO today. No SOB or chest pain. No further syncope. Pt denies fever, abd pain, n/v/c/d, LE pain or swelling. Problem List Medical Problems: (1) Atrial flutter with rapid ventricular response Status: Acute (2) GI bleed Status: Acute (3) Gout Status: Chronic (4) HLD (hyperlipidemia) Status: Chronic (5) HTN (hypertension) Status: Chronic Review of Systems All Other Systems: Reviewed and Negative Objective Vital Signs Date Time Temp Pulse Resp B/P (MAP) Pulse Ox O2 Delivery O2 Flow Rate FiO2 12/22/16 15:14 Nasal Cannula 2.0 12/22/16 14:12 36.9 60 18 146/85 (105) 95 Room Air 12/22/16 11:33 36.9 12/22/16 11:30 97 Nasal Cannula 2.0 12/22/16 11:01 56 20 139/54 (82) 96 Nasal Cannula 2.0 12/22/16 11:00 56 20 96 12/22/16 10:01 59 20 118/46 (70) 97 12/22/16 10:00 58 20 98 Nasal Cannula 2.0 12/22/16 09:01 60 24 149/53 (85) 97 12/22/16 09:00 58 24 97 12/22/16 08:30 96 Nasal Cannula 2.0 12/22/16 08:01 36.8 62 18 139/44 (75) 99 Nasal Cannula 2.0 12/22/16 08:00 63 22 98 12/22/16 07:01 62 24 125/51 (75) 96 12/22/16 07:00 61 20 95 12/22/16 06:00 60 19 128/45 (72) 97 Nasal Cannula 2.0 12/22/16 04:00 96 Nasal Cannula 2.0 12/22/16 04:00 36.7 63 19 126/48 (74) 96 Nasal Cannula 2.0 12/22/16 02:00 67 18 133/49 (77) 94 Nasal Cannula 2.0 12/22/16 01:01 61 20 131/50 (77) 95 Nasal Cannula 2.0 12/22/16 00:00 36.8 65 21 146/57 (86) 94 Nasal Cannula 2.0 12/22/16 00:00 98 Nasal Cannula 2.0 12/21/16 23:01 69 23 144/52 (82) 93 Nasal Cannula 2.0 12/21/16 22:00 65 27 170/55 (93) 95 Nasal Cannula 2.0 12/21/16 20:00 36.8 65 22 169/62 (97) 90 Room Air 12/21/16 19:41 92 Room Air 12/21/16 18:00 69 20 163/65 (97) 94 Nasal Cannula 1.0 Physical Exam General Appearance: WD/WN, no apparent distress Eyes: normal inspection, EOMI ENT: hearing grossly normal Neck: supple Respiratory/Chest: normal breath sounds, no respiratory distress Cardiovascular: regular rate, rhythm, no edema Abdomen: non tender, soft Extremities: non-tender, no pedal edema Neurologic/Psychiatric: alert, normal mood/affect, oriented x 3 Skin: normal color, warm/dry Laboratory Results Last 24 Hours Test 12/21/16 17:13 12/22/16 05:11 12/22/16 16:00 Hemoglobin 8.8 g/dL 8.0 g/dL Hematocrit 25.3 % 23.1 % Iron Level 166 mcg/dl Total Iron Binding Capacity 184 mcg/dl Ferritin 1186.9 ng/ml White Blood Count 4.41 K/uL Red Blood Count 2.53 M/uL Mean Corpuscular Volume 91.3 fL Mean Corpuscular Hemoglobin 31.6 pg Mean Corpuscular Hemoglobin Concent 34.6 g/dl RDW Standard Deviation 53.8 fL RDW Coefficient of Variation 16.3 % Platelet Count 51 K/uL Mean Platelet Volume 10.3 fL Absolute Reticulocyte Count 0.12 10^6/uL Percent Reticulocyte Count 4.5 % Prothrombin Time 15.9 SECONDS Prothromb Time International Ratio 1.5 Sodium Level 139 mmol/L Potassium Level 3.8 mmol/L Chloride Level 104 mmol/L Carbon Dioxide Level 31 mmol/L Anion Gap 4.0 mmol/L Blood Urea Nitrogen 26 mg/dl Creatinine 0.86 mg/dl Est Creatinine Clear Calc Drug Dose 82.5 ml/min Estimated GFR () 101.8 Estimated GFR (Non- 87.9 BUN/Creatinine Ratio 30.0 Random Glucose 91 mg/dl Calcium Level 7.7 mg/dl Phosphorus Level 2.5 mg/dl Magnesium Level 1.8 mg/dl Total Bilirubin 0.8 mg/dl Aspartate Amino Transf (AST/SGOT) 76 U/L Alanine Aminotransferase (ALT/SGPT) 33 U/L Alkaline Phosphatase 34 U/L Total Protein 5.2 gm/dl Albumin 2.1 gm/dl Globulin 3.1 gm/dl Albumin/Globulin Ratio 0.7 Assessment and Plan Mr. Maya is a 71 y/o male with PMHx of ETOH Abuse, HTN, HLD, S/P Colon Resection (denies cancer), and possible H/O PUD who presents to the ED by EMS with persistent SOB and melena/hemoptysis. Code Purple on 12/20 after EGD Acute Blood Loss Anemia 2/2 Hemoptysis and Melena: - Transfused 1 unit 12/21 and will continue to monitor - EGD with gastritis - question of portal gastropathy - CT Abd/pelvis and portal dopplers - evidence of multiple lesions likely cysts in liver - Octreotide and Protonix bolus/gtt, will need protonix gtt x72 hours - Ceftriaxone 2 g IV daily x7 days - GI following A. Flutter with RVR and SVT/afib: RESOLVED - Currently NSR - Received Adenosine and Cardizem with conversion without need for cardioversion upon admission High risk for bleeding given above, will avoid anticoagulation Elevated Troponin: - Likely demand ischemia from SVT/A Flutter RVR and acute blood loss - Echocardiogram noted for EF >70%, elevated RVP at 30-40% Elevated Lactic Acid: IMPROVING - Trending down Possible HAYLEY: Unknown baseline - RESOLVED - Monitor ETOH Abuse: - AWSS protocol with vitamin repletion, Librium, PRN Ativan Liver US neg CT AP neg for cirrhosis, portal vein is patent, hepatic cysts noted Elevated INR, dosing PO vit K as needed. Likely related to above Aneurysm noted at 5.1cm HTN: - Hold home medication of Lisinopril, Atenolol, and HCTZ - Nadolol daily HLD: - Hold simvastatin DVT Prophylaxis: FRANC/SCDS Code Status: FULL RESUSCITATION - commissioner of relocation services consult - awaiting PT/OT now that pt is improved Continued [facility] stay due to: multiple IV medications needed Discharge planning: uncertain
[2016-12-22 16:36] LABS: HEMATOCRIT 25.3 % (42-52)
--- NOTE | 2016-12-22 17:24 | Gastroenterology Progress Note ---
Progress Note Date of Service: Dec 22, 2016 Subjective Pt evaluation today including: conversation w/ patient, physical exam, chart review, lab review, review of studies, review of inpatient medication list CC f/u n/v, melena , hematemesis HPI pt states no N/V today. No abd pain. Denies any stools for the day. Tolerating full liquid diet. Review of Systems Respiratory: No shortness of breath Cardiac: No chest pain Medications Current Inpatient Medications Medications (Trade) Dose Ordered Sig/Angy Route Start Time Stop Time Status Last Admin Dose Admin Lorazepam (Ativan Inj) PRN Dosing -Active Protocol Q1H PRN IV 12/20/16 08:30 01/19/17 08:29 Metoprolol Tartrate (Lopressor Iv) 5 mg Q4 PRN IV 12/20/16 08:45 01/19/17 08:44 Ceftriaxone Sodium 2000 mg/ Dextrose 70 ml @ 140 mls/hr Q24H IV 12/20/16 10:00 12/26/16 10:29 12/22/16 10:26 140 MLS/HR Chlordiazepoxide (Librium Cap) 10 mg Q8 PO 12/22/16 14:00 12/23/16 06:01 12/22/16 14:32 10 MG Chlordiazepoxide (Librium Cap) 5 mg Q12 PO 12/23/16 21:00 12/24/16 09:01 Multivitamins (Multivitamin Tab) 1 tab QAM PO 12/21/16 09:00 01/20/17 08:59 12/22/16 08:32 1 TAB Thiamine HCl (Vitamin B-1 Tab) 100 mg DAILY PO 12/21/16 09:00 01/20/17 08:59 12/22/16 08:31 100 MG Folic Acid (Folvite Tab) 1 mg DAILY PO 12/21/16 09:00 01/20/17 08:59 12/22/16 08:32 1 MG Levalbuterol (Xopenex 1.25MG/ 3ML Neb) 1.25 mg Q6R PRN INH 12/20/16 20:15 01/19/17 20:14 Nicotine (Nicoderm Cq 14MG Patch) 1 patch QAM TD 12/21/16 09:00 01/20/17 08:59 12/22/16 08:33 1 PATCH Miscellaneous (Remove Nicoderm Patch) 1 ea QAM N/A 12/22/16 09:00 01/21/17 08:59 12/22/16 08:36 1 EA Ioversol (Optiray 320) 100 ml UD PRN IV 12/21/16 09:00 12/25/16 08:59 Guaifenesin (Robitussin Sugar Free Syrup) 100 mg Q6H PRN PO 12/22/16 02:45 01/21/17 02:44 12/22/16 12:57 100 MG Pantoprazole Sodium (Protonix Tab) 40 mg BID PO 12/22/16 21:00 01/21/17 20:59 Multivitamins/ Minerals (Multivitamin W/ Minerals Tab) 1 tab QAM PO 12/22/16 09:00 01/21/17 08:59 Nadolol (Corgard Tab) 80 mg DAILY PO 12/22/16 09:00 01/20/17 08:59 Objective Vital Signs Date Time Temp Pulse Resp B/P (MAP) Pulse Ox O2 Delivery O2 Flow Rate FiO2 12/22/16 15:14 Nasal Cannula 2.0 12/22/16 14:12 36.9 60 18 146/85 (105) 95 Room Air 12/22/16 11:33 36.9 12/22/16 11:30 97 Nasal Cannula 2.0 12/22/16 11:01 56 20 139/54 (82) 96 Nasal Cannula 2.0 12/22/16 11:00 56 20 96 12/22/16 10:01 59 20 118/46 (70) 97 12/22/16 10:00 58 20 98 Nasal Cannula 2.0 12/22/16 09:01 60 24 149/53 (85) 97 12/22/16 09:00 58 24 97 12/22/16 08:30 96 Nasal Cannula 2.0 12/22/16 08:01 36.8 62 18 139/44 (75) 99 Nasal Cannula 2.0 12/22/16 08:00 63 22 98 12/22/16 07:01 62 24 125/51 (75) 96 12/22/16 07:00 61 20 95 12/22/16 06:00 60 19 128/45 (72) 97 Nasal Cannula 2.0 12/22/16 04:00 96 Nasal Cannula 2.0 12/22/16 04:00 36.7 63 19 126/48 (74) 96 Nasal Cannula 2.0 12/22/16 02:00 67 18 133/49 (77) 94 Nasal Cannula 2.0 12/22/16 01:01 61 20 131/50 (77) 95 Nasal Cannula 2.0 12/22/16 00:00 36.8 65 21 146/57 (86) 94 Nasal Cannula 2.0 12/22/16 00:00 98 Nasal Cannula 2.0 12/21/16 23:01 69 23 144/52 (82) 93 Nasal Cannula 2.0 12/21/16 22:00 65 27 170/55 (93) 95 Nasal Cannula 2.0 12/21/16 20:00 36.8 65 22 169/62 (97) 90 Room Air 12/21/16 19:41 92 Room Air 12/21/16 18:00 69 20 163/65 (97) 94 Nasal Cannula 1.0 Physical Exam General Appearance: WD/WN, no apparent distress Respiratory/Chest: lungs clear, no respiratory distress Abdomen: non tender, soft, no organomegaly Laboratory Results Last 24 Hours Test 12/22/16 05:11 12/22/16 16:13 White Blood Count 4.41 K/uL Red Blood Count 2.53 M/uL Hemoglobin 8.0 g/dL 8.9 g/dL Hematocrit 23.1 % 25.3 % Mean Corpuscular Volume 91.3 fL Mean Corpuscular Hemoglobin 31.6 pg Mean Corpuscular Hemoglobin Concent 34.6 g/dl RDW Standard Deviation 53.8 fL RDW Coefficient of Variation 16.3 % Platelet Count 51 K/uL Mean Platelet Volume 10.3 fL Absolute Reticulocyte Count 0.12 10^6/uL Percent Reticulocyte Count 4.5 % Prothrombin Time 15.9 SECONDS Prothromb Time International Ratio 1.5 Sodium Level 139 mmol/L Potassium Level 3.8 mmol/L Chloride Level 104 mmol/L Carbon Dioxide Level 31 mmol/L Anion Gap 4.0 mmol/L Blood Urea Nitrogen 26 mg/dl Creatinine 0.86 mg/dl Est Creatinine Clear Calc Drug Dose 82.5 ml/min Estimated GFR () 101.8 Estimated GFR (Non- 87.9 BUN/Creatinine Ratio 30.0 Random Glucose 91 mg/dl Calcium Level 7.7 mg/dl Phosphorus Level 2.5 mg/dl Magnesium Level 1.8 mg/dl Total Bilirubin 0.8 mg/dl Aspartate Amino Transf (AST/SGOT) 76 U/L Alanine Aminotransferase (ALT/SGPT) 33 U/L Alkaline Phosphatase 34 U/L Total Protein 5.2 gm/dl Albumin 2.1 gm/dl Globulin 3.1 gm/dl Albumin/Globulin Ratio 0.7 Assessment and Plan gastritits--await path. No evidence of portal HTN on CT. Continue PPI po bid Melena --none at present acute blood loss anemia--stable elevated ferrritin 1186 with Fe sat 90%--check hemochromatosis genetic test. n/v --none at present. Advance diet as tolerated ETOH abuse--encourage abstinence. hematemesis-none at present
[2016-12-22] MEDS: PANTOprazole SOD 40 MG TAB PO SCH (21:11)
[2016-12-23] VITALS (11 sets, daily range): BP systolic 110–165; BP diastolic 46–80; PULSE 55–80; TEMP 36.4–37.1; O2SAT 92–100
[2016-12-23] MEDS: CHLORDIAZEPOXIDE 10MG Q8H DOSE PO SCH (05:52)
[2016-12-23 07:01] LABS: HEMATOCRIT 25.8 % (42-52); MEAN CELL VOLUME 94.9 fL (80-100); MEAN CORPUSCULAR HEMOGLOBIN 32.4 pg (25-34); MEAN CORPUSCULAR HGB CONC 34.1 g/dl (32-36); RED BLOOD COUNT 2.72 M/uL (4.7-6.1); WHITE BLOOD COUNT 3.49 K/uL (4.8-10.8)
[2016-12-23 07:19] LABS: INR 1.4 (0.9-1.1); PROTHROMBIN TIME (PATIENT) 14.8 SECONDS (9.0-12.0)
[2016-12-23 07:31] LABS: ALB/GLOB RATIO 0.7 (0.9-2); BUN/CREATININE RATIO 17.1 (10-20); CALCIUM 7.9 mg/dl (8.5-10.1); CREATININE 0.85 mg/dl (0.60-1.40)
[2016-12-23 07:35] LABS: MEAN PLATELET VOLUME 10.8 fL (7.4-10.4); PLATELET COUNT 51 K/uL (130-400)
[2016-12-23] MEDS: NADOLOL 40 MG TAB PO SCH (07:52)
[2016-12-23] MEDS: PANTOprazole SOD 40 MG TAB PO SCH ×2 (07:52→20:30)
[2016-12-23] MEDS: CEROVITE ADV FORMULA TAB PO SCH (07:52)
[2016-12-23] MEDS: GUAIFENESIN SUGAR FREE 100 MG/5 ML UDC PO PRN (07:53)
[2016-12-23] MEDS: MULTIVITAMIN TAB PO SCH (07:53)
[2016-12-23] MEDS: THIAMINE HCL 100 MG TAB PO SCH (07:53)
[2016-12-23] MEDS: NICOTINE 14 MG/24 HR TDSY TD SCH (07:54)
[2016-12-23 08:20] LABS: BASO % 0.6 %; BASO ABS # 0.02 K/uL (0-0.2); COMPLETE YES; EOS % 2.9 %; HYPOCHROMIA PRESENT; IG% 0.3 %; LARGE PLATELETS 1+; LYMPH % 35.5 %; LYMPH ABS # 1.24 K/uL (1.2-3.4); MONO % 8.9 %; NEUT % 51.8 %
[2016-12-23] MEDS: CEFTRIAXONE SOD INJ 2000 MG in DEXTROSE 5% 50ML IV SCH (09:40)
[2016-12-23] MEDS: ALBUT/IPRATROP 3MG/0.5MG NEB 3 ML VIAL INH SCH ×3 (11:24→19:01)
--- NOTE | 2016-12-23 13:13 | Progress Note ---
Subjective Date of Service: Dec 23, 2016. Subjective Pt evaluation today including: conversation w/ patient Pt continues to feel improvement. Tolerating PO without issue. Had a bowel movement but did not note if the stools were black. Has a deep cough today but no SOB. Pt denies fever, chest pain, abd pain, n/v/c/d, LE pain or swelling. Nursing reports that PT noted desats to about 88% with ambulation on RA today. Sats are WNL at rest on RA. Problem List Medical Problems: (1) Atrial flutter with rapid ventricular response Status: Acute (2) GI bleed Status: Acute (3) Gout Status: Chronic (4) HLD (hyperlipidemia) Status: Chronic (5) HTN (hypertension) Status: Chronic Review of Systems All Other Systems: Reviewed and Negative Objective Vital Signs Date Time Temp Pulse Resp B/P (MAP) Pulse Ox O2 Delivery O2 Flow Rate FiO2 12/23/16 11:56 80 97 12/23/16 11:33 37.1 55 18 110/46 (67) 97 Room Air 12/23/16 11:24 59 16 94 Room Air 12/23/16 08:00 Nasal Cannula 2.0 12/23/16 07:15 36.7 68 18 127/64 (85) 93 Nasal Cannula 2.0 12/23/16 04:13 36.7 65 18 156/71 (99) 97 2.0 12/23/16 04:00 Nasal Cannula 2.0 12/23/16 00:00 Nasal Cannula 2.0 12/22/16 23:15 36.6 61 20 150/60 (90) 95 2.0 12/22/16 20:00 Nasal Cannula 2.0 12/22/16 19:52 37.0 66 20 170/78 (108) 95 2.0 12/22/16 15:14 Nasal Cannula 2.0 12/22/16 14:12 36.9 60 18 146/85 (105) 95 Room Air Physical Exam Comments: General Appearance: WD/WN, no apparent distress Eyes: normal inspection, EOMI ENT: hearing grossly normal Neck: supple Respiratory/Chest: mild expiratory wheeze noted in all weldon, no respiratory distress Cardiovascular: regular rate, rhythm, no edema Abdomen: non tender, soft Extremities: non-tender, no pedal edema Neurologic/Psychiatric: alert, normal mood/affect, oriented x 3 Skin: normal color, warm/dry Laboratory Results Last 24 Hours Test 12/22/16 16:13 12/22/16 20:32 12/23/16 06:19 12/23/16 07:39 Hemoglobin 8.9 g/dL 8.8 g/dL Hematocrit 25.3 % 25.8 % Bedside Glucose 116 mg/dl 83 mg/dl White Blood Count 3.49 K/uL Red Blood Count 2.72 M/uL Mean Corpuscular Volume 94.9 fL Mean Corpuscular Hemoglobin 32.4 pg Mean Corpuscular Hemoglobin Concent 34.1 g/dl Platelet Count 51 K/uL Mean Platelet Volume 10.8 fL Neutrophils (%) (Auto) 51.8 % Lymphocytes (%) (Auto) 35.5 % Monocytes (%) (Auto) 8.9 % Eosinophils (%) (Auto) 2.9 % Basophils (%) (Auto) 0.6 % Neutrophils # (Auto) 1.81 K/uL Lymphocytes # (Auto) 1.24 K/uL Monocytes # (Auto) 0.31 K/uL Eosinophils # (Auto) 0.10 K/uL Basophils # (Auto) 0.02 K/uL RDW Standard Deviation 55.2 fL RDW Coefficient of Variation 16.1 % Immature Granulocyte % (Auto) 0.3 % Immature Granulocyte # (Auto) 0.01 K/uL Large Platelets 1+ Hypochromasia PRESENT Prothrombin Time 14.8 SECONDS Prothromb Time International Ratio 1.4 Sodium Level 138 mmol/L Potassium Level 4.0 mmol/L Chloride Level 103 mmol/L Carbon Dioxide Level 29 mmol/L Anion Gap 6.0 mmol/L Blood Urea Nitrogen 15 mg/dl Creatinine 0.85 mg/dl Est Creatinine Clear Calc Drug Dose 83.5 ml/min Estimated GFR () 102.3 Estimated GFR (Non- 88.3 BUN/Creatinine Ratio 17.1 Random Glucose 78 mg/dl Calcium Level 7.9 mg/dl Total Bilirubin 0.7 mg/dl Aspartate Amino Transf (AST/SGOT) 95 U/L Alanine Aminotransferase (ALT/SGPT) 48 U/L Alkaline Phosphatase 44 U/L Total Protein 5.5 gm/dl Albumin 2.3 gm/dl Globulin 3.2 gm/dl Albumin/Globulin Ratio 0.7 Test 12/23/16 12:00 Bedside Glucose 88 mg/dl Assessment and Plan Mr. Maya is a 71 y/o male with PMHx of ETOH Abuse, HTN, HLD, S/P Colon Resection (denies cancer), and possible H/O PUD who presents to the ED by EMS with persistent SOB and melena/hemoptysis. Code Purple on 12/20 after EGD Acute Blood Loss Anemia 2/2 Hemoptysis and Melena: - Transfused 1 unit 12/21 and will continue to monitor Hb has been improving - EGD with gastritis - question of portal gastropathy - CT Abd/pelvis and portal dopplers - evidence of multiple lesions likely cysts in liver - Octreotide and Protonix bolus/gtt, will need protonix gtt x72 hours - Ceftriaxone 2 g IV daily for a course of 7 days - GI following hemachromatosis DNA pending A. Flutter with RVR and SVT/afib: RESOLVED - Currently NSR - Received Adenosine and Cardizem with conversion without need for cardioversion upon admission High risk for bleeding given above, will avoid anticoagulation Elevated Troponin: - Likely demand ischemia from SVT/A Flutter RVR and acute blood loss - Echocardiogram noted for EF >70%, elevated RVP at 30-40% Elevated Lactic Acid: IMPROVING - Trending down HAYLEY: Unknown baseline - RESOLVED - Monitor ETOH Abuse: - AWSS protocol with vitamin repletion, Librium, PRN Ativan Liver US neg CT AP neg for cirrhosis, portal vein is patent, hepatic cysts noted Elevated INR, dosing PO vit K as needed. Likely related to above Tobacco use: Nicotine patch Pt does not carry dx of COPD or have hx of inhaler use, however cough and mild wheezing IS and nebs started 12/23, will need formal PFTs as outpt Aneurysm noted at 5.1cm HTN: - Hold home medication of Lisinopril, Atenolol, and HCTZ - Nadolol daily HLD: - Hold simvastatin DVT Prophylaxis: FRANC/SCDS Code Status: FULL RESUSCITATION - central services tech consult - PT/OT recs for rehab on d/c Will need 2 step prior to d/c, doing fine on RA at rest however Continued [facility] stay due to: multiple IV medications needed Discharge planning: uncertain
--- NOTE | 2016-12-23 15:42 | Gastroenterology Progress Note ---
Progress Note Date of Service: Dec 23, 2016 Subjective Pt evaluation today including: conversation w/ patient, physical exam, chart review, lab review, review of studies, review of inpatient medication list CC f/u GI bleeding HPI Pt had stools yesterday but did not look at color. No stools today. Eating but does not like diet. Is on full liquids. NO abd pain Review of Systems Respiratory: No shortness of breath Cardiac: No chest pain Medications Current Inpatient Medications Medications (Trade) Dose Ordered Sig/Angy Route Start Time Stop Time Status Last Admin Dose Admin Lorazepam (Ativan Inj) PRN Dosing -Active Protocol Q1H PRN IV 12/20/16 08:30 01/19/17 08:29 Metoprolol Tartrate (Lopressor Iv) 5 mg Q4 PRN IV 12/20/16 08:45 01/19/17 08:44 Ceftriaxone Sodium 2000 mg/ Dextrose 70 ml @ 140 mls/hr Q24H IV 12/20/16 10:00 12/26/16 10:29 12/23/16 09:40 140 MLS/HR Chlordiazepoxide (Librium Cap) 5 mg Q12 PO 12/23/16 21:00 12/24/16 09:01 Multivitamins (Multivitamin Tab) 1 tab QAM PO 12/21/16 09:00 01/20/17 08:59 12/23/16 07:53 1 TAB Thiamine HCl (Vitamin B-1 Tab) 100 mg DAILY PO 12/21/16 09:00 01/20/17 08:59 12/23/16 07:53 100 MG Folic Acid (Folvite Tab) 1 mg DAILY PO 12/21/16 09:00 01/20/17 08:59 12/23/16 07:53 1 MG Levalbuterol (Xopenex 1.25MG/ 3ML Neb) 1.25 mg Q6R PRN INH 12/20/16 20:15 01/19/17 20:14 Nicotine (Nicoderm Cq 14MG Patch) 1 patch QAM TD 12/21/16 09:00 01/20/17 08:59 12/23/16 07:54 1 PATCH Miscellaneous (Remove Nicoderm Patch) 1 ea QAM N/A 12/22/16 09:00 01/21/17 08:59 12/23/16 07:52 1 EA Ioversol (Optiray 320) 100 ml UD PRN IV 12/21/16 09:00 12/25/16 08:59 Guaifenesin (Robitussin Sugar Free Syrup) 100 mg Q6H PRN PO 12/22/16 02:45 01/21/17 02:44 12/23/16 07:53 100 MG Pantoprazole Sodium (Protonix Tab) 40 mg BID PO 12/22/16 21:00 01/21/17 20:59 12/23/16 07:52 40 MG Multivitamins/ Minerals (Multivitamin W/ Minerals Tab) 1 tab QAM PO 12/22/16 09:00 01/21/17 08:59 12/23/16 07:52 1 TAB Nadolol (Corgard Tab) 80 mg DAILY PO 12/22/16 09:00 01/20/17 08:59 12/23/16 07:52 80 MG Albuterol/ Ipratropium (Duoneb) 3 ml Q4RWA INH 12/23/16 12:00 01/22/17 11:59 12/23/16 15:15 3 ML Objective Vital Signs Date Time Temp Pulse Resp B/P (MAP) Pulse Ox O2 Delivery O2 Flow Rate FiO2 12/23/16 15:15 64 16 92 Room Air 12/23/16 12:00 Nasal Cannula 2.0 12/23/16 11:56 80 97 12/23/16 11:33 37.1 55 18 110/46 (67) 97 Room Air 12/23/16 11:24 59 16 94 Room Air 12/23/16 08:00 Nasal Cannula 2.0 12/23/16 07:15 36.7 68 18 127/64 (85) 93 Nasal Cannula 2.0 12/23/16 04:13 36.7 65 18 156/71 (99) 97 2.0 12/23/16 04:00 Nasal Cannula 2.0 12/23/16 00:00 Nasal Cannula 2.0 12/22/16 23:15 36.6 61 20 150/60 (90) 95 2.0 12/22/16 20:00 Nasal Cannula 2.0 12/22/16 19:52 37.0 66 20 170/78 (108) 95 2.0 Physical Exam General Appearance: WD/WN, no apparent distress Respiratory/Chest: lungs clear, no respiratory distress Cardiovascular: no murmur Abdomen: normal bowel sounds, non tender, soft, no organomegaly Laboratory Results Last 24 Hours Test 12/22/16 16:13 12/22/16 20:32 12/23/16 06:19 12/23/16 07:39 Hemoglobin 8.9 g/dL 8.8 g/dL Hematocrit 25.3 % 25.8 % Bedside Glucose 116 mg/dl 83 mg/dl White Blood Count 3.49 K/uL Red Blood Count 2.72 M/uL Mean Corpuscular Volume 94.9 fL Mean Corpuscular Hemoglobin 32.4 pg Mean Corpuscular Hemoglobin Concent 34.1 g/dl Platelet Count 51 K/uL Mean Platelet Volume 10.8 fL Neutrophils (%) (Auto) 51.8 % Lymphocytes (%) (Auto) 35.5 % Monocytes (%) (Auto) 8.9 % Eosinophils (%) (Auto) 2.9 % Basophils (%) (Auto) 0.6 % Neutrophils # (Auto) 1.81 K/uL Lymphocytes # (Auto) 1.24 K/uL Monocytes # (Auto) 0.31 K/uL Eosinophils # (Auto) 0.10 K/uL Basophils # (Auto) 0.02 K/uL RDW Standard Deviation 55.2 fL RDW Coefficient of Variation 16.1 % Immature Granulocyte % (Auto) 0.3 % Immature Granulocyte # (Auto) 0.01 K/uL Large Platelets 1+ Hypochromasia PRESENT Prothrombin Time 14.8 SECONDS Prothromb Time International Ratio 1.4 Sodium Level 138 mmol/L Potassium Level 4.0 mmol/L Chloride Level 103 mmol/L Carbon Dioxide Level 29 mmol/L Anion Gap 6.0 mmol/L Blood Urea Nitrogen 15 mg/dl Creatinine 0.85 mg/dl Est Creatinine Clear Calc Drug Dose 83.5 ml/min Estimated GFR () 102.3 Estimated GFR (Non- 88.3 BUN/Creatinine Ratio 17.1 Random Glucose 78 mg/dl Calcium Level 7.9 mg/dl Total Bilirubin 0.7 mg/dl Aspartate Amino Transf (AST/SGOT) 95 U/L Alanine Aminotransferase (ALT/SGPT) 48 U/L Alkaline Phosphatase 44 U/L Total Protein 5.5 gm/dl Albumin 2.3 gm/dl Globulin 3.2 gm/dl Albumin/Globulin Ratio 0.7 Test 12/23/16 12:00 12/23/16 15:35 Bedside Glucose 88 mg/dl Assessment and Plan gastritits--await path. No evidence of portal HTN on CT. Continue PPI po bid Melena --none at present acute blood loss anemia--stable elevated ferrritin 1186 with Fe sat 90%--check hemochromatosis genetic test. n/v --none at present. Advanced to regular diet. ETOH abuse--encourage abstinence. hematemesis-none at present
[2016-12-23 15:46] LABS: HEMATOCRIT 25.5 % (42-52)
[2016-12-23] MEDS: CHLORDIAZEPOXIDE 5MG Q12H DOSE PO SCH (20:30)
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
[2016-12-24] VITALS (10 sets, daily range): BP systolic 106–132; BP diastolic 55–76; PULSE 48–79; TEMP 36.7–37.1; O2SAT 91–95
[2016-12-24 06:12] LABS: HEMATOCRIT 24.7 % (42-52); MEAN CELL VOLUME 92.9 fL (80-100); MEAN CORPUSCULAR HEMOGLOBIN 32.3 pg (25-34); MEAN CORPUSCULAR HGB CONC 34.8 g/dl (32-36); RED BLOOD COUNT 2.66 M/uL (4.7-6.1); WHITE BLOOD COUNT 4.12 K/uL (4.8-10.8)
[2016-12-24 06:17] LABS: MEAN PLATELET VOLUME 10.6 fL (7.4-10.4); PLATELET COUNT 51 K/uL (130-400)
[2016-12-24 06:21] LABS: INR 1.4 (0.9-1.1); PROTHROMBIN TIME (PATIENT) 15.3 SECONDS (9.0-12.0)
[2016-12-24 06:42] LABS: BUN/CREATININE RATIO 14.1 (10-20); CALCIUM 7.5 mg/dl (8.5-10.1); CREATININE 0.82 mg/dl (0.60-1.40); POTASSIUM 3.8 mmol/L (3.5-5.1)
[2016-12-24 06:44] LABS: ALB/GLOB RATIO 0.7 (0.9-2)
[2016-12-24 07:10] LABS: BASO % 0.5 %; BASO ABS # 0.02 K/uL (0-0.2); COMPLETE YES; EOS % 3.6 %; IG% 0.2 %; LARGE PLATELETS 1+; LYMPH % 30.1 %; LYMPH ABS # 1.24 K/uL (1.2-3.4); MONO % 9.7 %; NEUT % 55.9 %
[2016-12-24] MEDS: ALBUT/IPRATROP 3MG/0.5MG NEB 3 ML VIAL INH SCH ×4 (07:23→19:34)
[2016-12-24] MEDS: NICOTINE 14 MG/24 HR TDSY TD SCH (07:40)
[2016-12-24] MEDS: CEROVITE ADV FORMULA TAB PO SCH (07:40)
[2016-12-24] MEDS: THIAMINE HCL 100 MG TAB PO SCH (07:40)
[2016-12-24] MEDS: NADOLOL 40 MG TAB PO SCH (07:40)
[2016-12-24] MEDS: MULTIVITAMIN TAB PO SCH (07:40)
[2016-12-24] MEDS: PANTOprazole SOD 40 MG TAB PO SCH ×2 (07:41→20:28)
--- NOTE | 2016-12-24 09:00 | Hospitalist Progress Note ---
Hospitalist Progress Note Date of Service Dec 24, 2016. (Digna Lundy PA-C) Subjective Pt evaluation today including: conversation w/ patient, conversation w/ family , physical exam, chart review, lab review, review of studies Pain: None PO Intake: Good Voiding: no voiding problems The patient was seen and examined this morning. Pt reports doing well today, he has no acute complaints. Pt reports his breathing is better today. He is ambulating about the room to the bathroom without difficulty. He has been about the [place]ig[place] without difficulty several times as well. Pt has not yet spoken with CM about rehab options but is anticipating this discussion today. Pt is from home, lives alone. He would like to establish with a new PCP with [facility]. Constitutional: No fever, No chills, No sweats Eyes: No redness, No diplopia ENT: No nasal symptoms, No sore throat, No trouble swallowing Respiratory: + cough, + sputum, No shortness of breath, No dyspnea on exertion, No dyspnea at rest Cardiovascular: No chest pain, No palpitations Breast: No breast pain Abdomen: No pain, No nausea, No vomiting, No diarrhea, No constipation Musculoskeletal: No joint pain, No muscle pain, No swelling Male : No dysuria Neurologic: No weakness, No numbness/tingling Endo: No fatigue Skin: No rash, No itch (Digna Lundy, JUNIOR) Objective Vital Signs Date Time Temp Pulse Resp B/P (MAP) Pulse Ox O2 Delivery O2 Flow Rate FiO2 12/24/16 07:25 36.8 65 18 131/75 (93) 91 Room Air 12/24/16 07:23 69 16 91 Room Air 12/24/16 05:25 36.7 62 18 132/76 (94) 92 Room Air 12/24/16 04:00 Room Air 12/24/16 00:01 Room Air 12/23/16 23:21 37.0 62 20 165/80 (108) 94 12/23/16 20:00 Room Air 12/23/16 19:22 36.4 57 18 147/74 (98) 100 Room Air 12/23/16 19:01 57 16 92 Room Air 12/23/16 16:00 94 Room Air 12/23/16 15:35 36.7 63 19 147/71 (96) 94 Room Air 12/23/16 15:15 64 16 92 Room Air 12/23/16 12:00 Nasal Cannula 2.0 12/23/16 11:56 80 97 12/23/16 11:33 37.1 55 18 110/46 (67) 97 Room Air 12/23/16 11:24 59 16 94 Room Air (Digna Lundy PA-C) Physical Exam General Appearance: WD/WN, no apparent distress, + pertinent finding (sitting up in bedside chair) Eyes: PERRL, EOMI ENT: hearing grossly normal, pharynx normal Neck: supple, no JVD Respiratory/Chest: no respiratory distress, no accessory muscle use, + pertinent finding (+ faint crackles in bilateral bases, no wheezing or rales) Cardiovascular: regular rate, rhythm Abdomen: non tender, soft, no organomegaly Extremities: non-tender, no pedal edema, no calf tenderness Neurologic/Psychiatric: alert, normal mood/affect, oriented x 3 Skin: normal color, warm/dry (Digna Lundy PA-C) Laboratory Results Last 24 Hours Test 12/23/16 12:00 12/23/16 15:35 12/23/16 16:36 12/23/16 20:09 Bedside Glucose 88 mg/dl 111 mg/dl 85 mg/dl Hemoglobin 8.8 g/dL Hematocrit 25.5 % Test 12/24/16 05:41 12/24/16 07:34 White Blood Count 4.12 K/uL Red Blood Count 2.66 M/uL Hemoglobin 8.6 g/dL Hematocrit 24.7 % Mean Corpuscular Volume 92.9 fL Mean Corpuscular Hemoglobin 32.3 pg Mean Corpuscular Hemoglobin Concent 34.8 g/dl Platelet Count 51 K/uL Mean Platelet Volume 10.6 fL Neutrophils (%) (Auto) 55.9 % Lymphocytes (%) (Auto) 30.1 % Monocytes (%) (Auto) 9.7 % Eosinophils (%) (Auto) 3.6 % Basophils (%) (Auto) 0.5 % Neutrophils # (Auto) 2.30 K/uL Lymphocytes # (Auto) 1.24 K/uL Monocytes # (Auto) 0.40 K/uL Eosinophils # (Auto) 0.15 K/uL Basophils # (Auto) 0.02 K/uL RDW Standard Deviation 51.5 fL RDW Coefficient of Variation 15.4 % Immature Granulocyte % (Auto) 0.2 % Immature Granulocyte # (Auto) 0.01 K/uL Large Platelets 1+ Prothrombin Time 15.3 SECONDS Prothromb Time International Ratio 1.4 Sodium Level 136 mmol/L Potassium Level 3.8 mmol/L Chloride Level 102 mmol/L Carbon Dioxide Level 30 mmol/L Anion Gap 4.0 mmol/L Blood Urea Nitrogen 12 mg/dl Creatinine 0.82 mg/dl Est Creatinine Clear Calc Drug Dose 86.6 ml/min Estimated GFR () 103.8 Estimated GFR (Non- 89.6 BUN/Creatinine Ratio 14.1 Random Glucose 77 mg/dl Calcium Level 7.5 mg/dl Total Bilirubin 0.8 mg/dl Aspartate Amino Transf (AST/SGOT) 74 U/L Alanine Aminotransferase (ALT/SGPT) 44 U/L Alkaline Phosphatase 46 U/L Total Protein 5.3 gm/dl Albumin 2.1 gm/dl Globulin 3.2 gm/dl Albumin/Globulin Ratio 0.7 Bedside Glucose 77 mg/dl (Digna Lundy, JUNIOR) Assessment and Plan 71 y/o male with PMHx of ETOH Abuse, HTN, HLD, S/P Colon Resection (denies cancer), and possible H/O PUD who presents to the ED by EMS with persistent SOB and melena/hemoptysis. Code Purple on 12/20 after EGD. ICU was involved however pt aroused shortly after code was called and no interventions were required. Acute Blood Loss Anemia 2/2 Hemoptysis and Melena: - Transfused 1 unit 12/21, Hgb - EGD with gastritis - no evidence of portal gastropathy - appreciate GI recs - CT Abd/pelvis and portal dopplers - evidence of multiple lesions likely cysts in liver, hepatosplenomegaly would explain thrombocytopenia. - Now off octreotide and Protonix bolus/gtt, continue pantoprazole 40 mg BID - Ceftriaxone 2 g IV daily, got 5 days, for possibility of sepsis from esophageal varices - since negative will dc today. Pt is greatly improved. - hemachromatosis DNA pending A. Flutter with RVR and SVT/afib: currently NSR - Received Adenosine and Cardizem with conversion without need for cardioversion upon admission - High risk for bleeding given above, will avoid anticoagulation Elevated Troponin: - Likely demand ischemia from SVT/A Flutter RVR and acute blood loss - Echocardiogram noted for EF >70%, elevated RVP at 30-40% Elevated Lactic Acid: - Improved now - Was placed on ceftriaxone empirically, finished 5 day course. HAYLEY: - Cr. 0.82, HAYLEY resolved - Follow with am labs ETOH Abuse: - Cessation encouraged, - Continue thiamine, MVI daily - Librium now trended down to 5 mg Q12H, continue taper, PRN Ativan - Liver US neg - CT AP neg for cirrhosis, portal vein is patent, hepatic cysts noted - Elevated INR, dosing PO vit K as needed. Likely related to above Tobacco use: - Cessation encouraged at bedside, continue Nicotine patch - Pt does not carry dx of COPD or have hx of inhaler use, however cough and mild wheezing - IS and nebs started 12/23, will need formal PFTs as outpt AAA noted at 5.1cm - CT abd/pelvis reviewed: 5.1 x 4.9 cm in AP and transverse dimension. This is seen overlying of approximately 9 cm terminating at the iliac bifurcation. There is also mild aneurysmal dilatation of the left common iliac artery, 1.7 cm. Extensive vascular calcifications are present throughout. HTN: - Hold home medication of Lisinopril, Atenolol, and HCTZ - Nadolol 80mg daily HLD: - Hold simvastatin DVT Prophylaxis: FRANC/SCDS Code Status: FULL RESUSCITATION Disposition: PT/OT evals placed, CM to assist with rehab options, 2 step ordered , discharge likely within 1-2 days (Digna Lundy, JUNIOR) PA Physician Supervision Note: I interviewed and examined the patient. Discussed with Digna Lundy PAC and agree with findings and plan as documented in the note. Any exceptions or clarifications are listed here: None Patient here with GI bleed from gastritis history of A. fib RVR. Patient is doing well. Fairly significantly charles course initially requiring intensive care unit monitoring. He acute blood loss anemia and was transfused. Vital signs are stable but patient is fatigued Cardiac exam is regular without murmurs lungs are clear without wheezes Abdomen is soft and nontender Supportive care for GI bleed continue PPI avoid for anticoagulation for A. fib PT OT evaluation for need for postrecovery rehabilitation A. fib converted to sinus rhythm continue nadolol Elevated troponin likely demand ischemia from rapid rate Alcohol withdrawal now on very low doses of Librium scheduled to stop soon Documented By: Homer Sepulveda (Homer Sepulveda M.D.)
[2016-12-24] MEDS: CEFTRIAXONE SOD INJ 2000 MG in DEXTROSE 5% 50ML IV SCH (09:45)
[2016-12-24] MEDS: CHLORDIAZEPOXIDE 5MG Q12H DOSE PO SCH (09:45)
[2016-12-24 14:17] LABS: ALPHA-1-ANTITRYPSIN TC 67710E 150 MG/DL (83-199)
--- NOTE | 2016-12-24 16:35 | Gastroenterology Progress Note ---
Progress Note Date of Service: Dec 24, 2016 Subjective Pt evaluation today including: conversation w/ patient, physical exam, chart review, lab review, review of studies, review of inpatient medication list CC f/U melena HPI No stools last 24 hours. Tolerating solid diet. NO abd pain. Review of Systems Respiratory: No shortness of breath Cardiac: No chest pain Medications Current Inpatient Medications Medications (Trade) Dose Ordered Sig/Angy Route Start Time Stop Time Status Last Admin Dose Admin Lorazepam (Ativan Inj) PRN Dosing -Active Protocol Q1H PRN IV 12/20/16 08:30 01/19/17 08:29 Metoprolol Tartrate (Lopressor Iv) 5 mg Q4 PRN IV 12/20/16 08:45 01/19/17 08:44 Multivitamins (Multivitamin Tab) 1 tab QAM PO 12/21/16 09:00 01/20/17 08:59 12/24/16 07:40 1 TAB Thiamine HCl (Vitamin B-1 Tab) 100 mg DAILY PO 12/21/16 09:00 01/20/17 08:59 12/24/16 07:40 100 MG Folic Acid (Folvite Tab) 1 mg DAILY PO 12/21/16 09:00 01/20/17 08:59 12/24/16 07:40 1 MG Levalbuterol (Xopenex 1.25MG/ 3ML Neb) 1.25 mg Q6R PRN INH 12/20/16 20:15 01/19/17 20:14 Nicotine (Nicoderm Cq 14MG Patch) 1 patch QAM TD 12/21/16 09:00 01/20/17 08:59 12/24/16 07:40 1 PATCH Miscellaneous (Remove Nicoderm Patch) 1 ea QAM N/A 12/22/16 09:00 01/21/17 08:59 12/24/16 07:40 1 EA Ioversol (Optiray 320) 100 ml UD PRN IV 12/21/16 09:00 12/25/16 08:59 Guaifenesin (Robitussin Sugar Free Syrup) 100 mg Q6H PRN PO 12/22/16 02:45 01/21/17 02:44 12/23/16 07:53 100 MG Pantoprazole Sodium (Protonix Tab) 40 mg BID PO 12/22/16 21:00 01/21/17 20:59 12/24/16 07:41 40 MG Multivitamins/ Minerals (Multivitamin W/ Minerals Tab) 1 tab QAM PO 12/22/16 09:00 01/21/17 08:59 12/24/16 07:40 1 TAB Nadolol (Corgard Tab) 80 mg DAILY PO 12/22/16 09:00 01/20/17 08:59 12/24/16 07:40 80 MG Albuterol/ Ipratropium (Duoneb) 3 ml Q4RWA INH 12/23/16 12:00 01/22/17 11:59 12/24/16 15:15 3 ML Heparin Sodium (Porcine) (Heparin 10 Unit/ ml 5 ml Flush) 5 ml PRN PRN FLUSH 12/23/16 20:00 01/22/17 19:59 12/24/16 11:14 5 ML Objective Vital Signs Date Time Temp Pulse Resp B/P (MAP) Pulse Ox O2 Delivery O2 Flow Rate FiO2 12/24/16 16:00 Room Air 12/24/16 15:45 37.1 72 18 126/66 (86) 93 Room Air 12/24/16 15:15 70 16 93 Room Air 12/24/16 12:30 Room Air 12/24/16 12:27 62 18 124/62 (82) 93 12/24/16 11:12 63 16 93 Room Air 12/24/16 07:45 Room Air 12/24/16 07:25 36.8 65 18 131/75 (93) 91 Room Air 12/24/16 07:23 69 16 91 Room Air 12/24/16 05:25 36.7 62 18 132/76 (94) 92 Room Air 12/24/16 04:00 Room Air 12/24/16 00:01 Room Air 12/23/16 23:21 37.0 62 20 165/80 (108) 94 12/23/16 20:00 Room Air 12/23/16 19:22 36.4 57 18 147/74 (98) 100 Room Air 12/23/16 19:01 57 16 92 Room Air Physical Exam General Appearance: WD/WN, no apparent distress Respiratory/Chest: lungs clear, no respiratory distress Cardiovascular: no murmur Abdomen: normal bowel sounds, non tender, soft, no organomegaly Laboratory Results Last 24 Hours Test 12/23/16 16:36 12/23/16 20:09 12/24/16 05:41 12/24/16 07:34 Bedside Glucose 111 mg/dl 85 mg/dl 77 mg/dl White Blood Count 4.12 K/uL Red Blood Count 2.66 M/uL Hemoglobin 8.6 g/dL Hematocrit 24.7 % Mean Corpuscular Volume 92.9 fL Mean Corpuscular Hemoglobin 32.3 pg Mean Corpuscular Hemoglobin Concent 34.8 g/dl Platelet Count 51 K/uL Mean Platelet Volume 10.6 fL Neutrophils (%) (Auto) 55.9 % Lymphocytes (%) (Auto) 30.1 % Monocytes (%) (Auto) 9.7 % Eosinophils (%) (Auto) 3.6 % Basophils (%) (Auto) 0.5 % Neutrophils # (Auto) 2.30 K/uL Lymphocytes # (Auto) 1.24 K/uL Monocytes # (Auto) 0.40 K/uL Eosinophils # (Auto) 0.15 K/uL Basophils # (Auto) 0.02 K/uL RDW Standard Deviation 51.5 fL RDW Coefficient of Variation 15.4 % Immature Granulocyte % (Auto) 0.2 % Immature Granulocyte # (Auto) 0.01 K/uL Large Platelets 1+ Prothrombin Time 15.3 SECONDS Prothromb Time International Ratio 1.4 Sodium Level 136 mmol/L Potassium Level 3.8 mmol/L Chloride Level 102 mmol/L Carbon Dioxide Level 30 mmol/L Anion Gap 4.0 mmol/L Blood Urea Nitrogen 12 mg/dl Creatinine 0.82 mg/dl Est Creatinine Clear Calc Drug Dose 86.6 ml/min Estimated GFR () 103.8 Estimated GFR (Non- 89.6 BUN/Creatinine Ratio 14.1 Random Glucose 77 mg/dl Calcium Level 7.5 mg/dl Total Bilirubin 0.8 mg/dl Aspartate Amino Transf (AST/SGOT) 74 U/L Alanine Aminotransferase (ALT/SGPT) 44 U/L Alkaline Phosphatase 46 U/L Total Protein 5.3 gm/dl Albumin 2.1 gm/dl Globulin 3.2 gm/dl Albumin/Globulin Ratio 0.7 Test 12/24/16 11:35 Bedside Glucose 114 mg/dl Assessment and Plan gastritits--antrum path npd and neg for H.pylori. . No evidence of portal HTN on CT. Continue PPI po bid Melena --none at present acute blood loss anemia--stable elevated ferrritin 1186 with Fe sat 90%- hemochromatosis genetic test pending n/v --none at present. Tolerating regular diet. ETOH abuse--encourage abstinence. hematemesis-none at present
[2016-12-25] VITALS (10 sets, daily range): BP systolic 119–144; BP diastolic 69–74; PULSE 70–87; TEMP 36.6–36.9; O2SAT 90–96
[2016-12-25 06:02] LABS: HEMATOCRIT 22.8 % (42-52); MEAN CELL VOLUME 92.3 fL (80-100); MEAN CORPUSCULAR HGB CONC 34.6 g/dl (32-36); RED BLOOD COUNT 2.47 M/uL (4.7-6.1); WHITE BLOOD COUNT 4.83 K/uL (4.8-10.8)
[2016-12-25 06:05] LABS: MEAN PLATELET VOLUME 10.2 fL (7.4-10.4); PLATELET COUNT 59 K/uL (130-400)
[2016-12-25 06:36] LABS: BUN/CREATININE RATIO 12.9 (10-20); CALCIUM 7.3 mg/dl (8.5-10.1); CREATININE 0.9 mg/dl (0.60-1.40); POTASSIUM 3.5 mmol/L (3.5-5.1)
[2016-12-25 06:38] LABS: ALB/GLOB RATIO 0.7 (0.9-2)
[2016-12-25 07:03] LABS: BASO % 0.8 %; BASO ABS # 0.04 K/uL (0-0.2); COMPLETE YES; EOS % 4.3 %; IG% 0.2 %; MONO % 12.4 %; NEUT % 53.3 %; POLYCHROMASIA 1+
[2016-12-25] MEDS: ALBUT/IPRATROP 3MG/0.5MG NEB 3 ML VIAL INH SCH ×4 (07:17→19:52)
[2016-12-25] MEDS: THIAMINE HCL 100 MG TAB PO SCH (08:14)
[2016-12-25] MEDS: NADOLOL 40 MG TAB PO SCH (08:14)
[2016-12-25] MEDS: CEROVITE ADV FORMULA TAB PO SCH (08:14)
[2016-12-25] MEDS: MULTIVITAMIN TAB PO SCH (08:14)
[2016-12-25] MEDS: PANTOprazole SOD 40 MG TAB PO SCH ×2 (08:14→20:16)
[2016-12-25] MEDS: NICOTINE 14 MG/24 HR TDSY TD SCH (08:15)
--- NOTE | 2016-12-25 10:08 | Gastroenterology Progress Note ---
Progress Note Date of Service: Dec 25, 2016 Subjective Pt evaluation today including: conversation w/ patient, physical exam, chart review, lab review, review of studies, review of inpatient medication list CC f/u GI bleeding HPI Pt denies abd pain. Is tolerating solid diet. Had stool this am 0900 witnessed by patient but staff. Per patient stool dark but not black/tarry like it was before admit. Review of Systems Respiratory: No shortness of breath Cardiac: No chest pain Medications Current Inpatient Medications Medications (Trade) Dose Ordered Sig/Angy Route Start Time Stop Time Status Last Admin Dose Admin Lorazepam (Ativan Inj) PRN Dosing -Active Protocol Q1H PRN IV 12/20/16 08:30 01/19/17 08:29 Metoprolol Tartrate (Lopressor Iv) 5 mg Q4 PRN IV 12/20/16 08:45 01/19/17 08:44 Multivitamins (Multivitamin Tab) 1 tab QAM PO 12/21/16 09:00 01/20/17 08:59 12/25/16 08:14 1 TAB Thiamine HCl (Vitamin B-1 Tab) 100 mg DAILY PO 12/21/16 09:00 01/20/17 08:59 12/25/16 08:14 100 MG Folic Acid (Folvite Tab) 1 mg DAILY PO 12/21/16 09:00 01/20/17 08:59 12/25/16 08:14 1 MG Levalbuterol (Xopenex 1.25MG/ 3ML Neb) 1.25 mg Q6R PRN INH 12/20/16 20:15 01/19/17 20:14 Nicotine (Nicoderm Cq 14MG Patch) 1 patch QAM TD 12/21/16 09:00 01/20/17 08:59 12/25/16 08:15 1 PATCH Miscellaneous (Remove Nicoderm Patch) 1 ea QAM N/A 12/22/16 09:00 01/21/17 08:59 12/25/16 08:14 1 EA Guaifenesin (Robitussin Sugar Free Syrup) 100 mg Q6H PRN PO 12/22/16 02:45 01/21/17 02:44 12/23/16 07:53 100 MG Pantoprazole Sodium (Protonix Tab) 40 mg BID PO 7/8/17 21:00 01/21/17 20:59 12/25/16 08:14 40 MG Multivitamins/ Minerals (Multivitamin W/ Minerals Tab) 1 tab QAM PO 12/22/16 09:00 01/21/17 08:59 12/25/16 08:14 1 TAB Nadolol (Corgard Tab) 80 mg DAILY PO 12/22/16 09:00 01/20/17 08:59 12/25/16 08:14 80 MG Albuterol/ Ipratropium (Duoneb) 3 ml Q4RWA INH 12/23/16 12:00 01/22/17 11:59 12/25/16 07:17 3 ML Heparin Sodium (Porcine) (Heparin 10 Unit/ ml 5 ml Flush) 5 ml PRN PRN FLUSH 12/23/16 20:00 01/22/17 19:59 12/24/16 11:14 5 ML Objective Vital Signs Date Time Temp Pulse Resp B/P (MAP) Pulse Ox O2 Delivery O2 Flow Rate FiO2 12/25/16 08:01 36.6 74 18 123/74 (90) 95 Room Air 12/25/16 07:45 Room Air 12/25/16 07:17 84 12 96 Room Air 12/25/16 04:05 Room Air 12/25/16 03:53 36.8 72 18 119/69 (86) 90 Room Air 12/25/16 00:05 Room Air 12/24/16 23:21 37.1 71 20 116/63 (80) 95 Room Air 12/24/16 20:06 Room Air 12/24/16 19:36 37.0 69 18 106/55 (72) 94 Room Air 12/24/16 19:34 79 16 92 Room Air 12/24/16 16:00 Room Air 12/24/16 15:45 37.1 72 18 126/66 (86) 93 Room Air 12/24/16 15:15 70 16 93 Room Air 12/24/16 12:30 Room Air 12/24/16 12:27 62 18 124/62 (82) 93 12/24/16 11:12 63 16 93 Room Air Physical Exam General Appearance: WD/WN, no apparent distress Respiratory/Chest: normal breath sounds, no respiratory distress Cardiovascular: no murmur Abdomen: normal bowel sounds, non tender, soft Laboratory Results Last 24 Hours Test 12/24/16 11:35 12/25/16 05:29 Bedside Glucose 114 mg/dl White Blood Count 4.83 K/uL Red Blood Count 2.47 M/uL Hemoglobin 7.9 g/dL Hematocrit 22.8 % Mean Corpuscular Volume 92.3 fL Mean Corpuscular Hemoglobin 32.0 pg Mean Corpuscular Hemoglobin Concent 34.6 g/dl Platelet Count 59 K/uL Mean Platelet Volume 10.2 fL Neutrophils (%) (Auto) 53.3 % Lymphocytes (%) (Auto) 29.0 % Monocytes (%) (Auto) 12.4 % Eosinophils (%) (Auto) 4.3 % Basophils (%) (Auto) 0.8 % Neutrophils # (Auto) 2.57 K/uL Lymphocytes # (Auto) 1.40 K/uL Monocytes # (Auto) 0.60 K/uL Eosinophils # (Auto) 0.21 K/uL Basophils # (Auto) 0.04 K/uL RDW Standard Deviation 51.5 fL RDW Coefficient of Variation 15.9 % Immature Granulocyte % (Auto) 0.2 % Immature Granulocyte # (Auto) 0.01 K/uL Polychromasia 1+ Basophilic Stippling 1+ Sodium Level 135 mmol/L Potassium Level 3.5 mmol/L Chloride Level 101 mmol/L Carbon Dioxide Level 28 mmol/L Anion Gap 6.0 mmol/L Blood Urea Nitrogen 12 mg/dl Creatinine 0.90 mg/dl Est Creatinine Clear Calc Drug Dose 78.9 ml/min Estimated GFR () 99.9 Estimated GFR (Non- 86.2 BUN/Creatinine Ratio 12.9 Random Glucose 80 mg/dl Calcium Level 7.3 mg/dl Total Bilirubin 0.8 mg/dl Aspartate Amino Transf (AST/SGOT) 54 U/L Alanine Aminotransferase (ALT/SGPT) 35 U/L Alkaline Phosphatase 49 U/L Total Protein 5.2 gm/dl Albumin 2.1 gm/dl Globulin 3.1 gm/dl Albumin/Globulin Ratio 0.7 Assessment and Plan gastritits--antrum path npd and neg for H.pylori. . No evidence of portal HTN on CT. Continue PPI po bid Melena --stool dark but no black this am per patient acute blood loss anemia--drop today so continue to monitor---no obvious GI bleed source elevated ferrritin 1186 with Fe sat 90%- hemochromatosis genetic test pending n/v --none at present. Tolerating regular diet. ETOH abuse--encourage abstinence. hematemesis-none at present
--- NOTE | 2016-12-25 12:38 | Hospitalist Progress Note ---
Hospitalist Progress Note Date of Service Dec 25, 2016. (Digna Lundy PA-C) Subjective Pt evaluation today including: conversation w/ patient, physical exam, chart review, lab review, review of studies Pain: none PO Intake: good Voiding: no voiding problems The patient was seen and examined this morning. Pt reports feeling better today. He has been tolerating a regular diet. Had a BM this morning which was brown and formed. He denies seeing any BRB or tarry appearing stools. He denies lightheadedness, dizziness, chest pain, sob, abd pain/n/v/c/d. We discussed rehab and he is agreeable to this, CM is planning to place referral to [facility]. Additional Comments: ROS: 6 point ROS reviewed and otherwise negative. (Digna Lundy PA-C) Objective Vital Signs Date Time Temp Pulse Resp B/P (MAP) Pulse Ox O2 Delivery O2 Flow Rate FiO2 12/25/16 12:04 87 12 95 Room Air 12/25/16 11:25 36.8 70 18 124/70 (88) 95 Room Air 12/25/16 08:01 36.6 74 18 123/74 (90) 95 Room Air 12/25/16 07:45 Room Air 12/25/16 07:17 84 12 96 Room Air 12/25/16 04:05 Room Air 12/25/16 03:53 36.8 72 18 119/69 (86) 90 Room Air 12/25/16 00:05 Room Air 12/24/16 23:21 37.1 71 20 116/63 (80) 95 Room Air 12/24/16 20:06 Room Air 12/24/16 19:36 37.0 69 18 106/55 (72) 94 Room Air 12/24/16 19:34 79 16 92 Room Air 12/24/16 16:00 Room Air 12/24/16 15:45 37.1 72 18 126/66 (86) 93 Room Air 12/24/16 15:15 70 16 93 Room Air (Digna Lundy PA-C) Physical Exam Notes: General Appearance: WD/WN, no apparent distress, Eyes: PERRL, EOMI ENT: hearing grossly normal, pharynx normal Neck: supple, no JVD Respiratory/Chest: no respiratory distress, no accessory muscle use, + pertinent finding (+ faint crackles in bilateral bases are improved, no wheezing or rales) Cardiovascular: regular rate, rhythm Abdomen: non tender, soft, no organomegaly Extremities: non-tender, no pedal edema, no calf tenderness Neurologic/Psychiatric: alert, normal mood/affect, oriented x 3 Skin: normal color, warm/dry (Digna Lundy, JUNIOR) Laboratory Results Last 24 Hours Test 12/25/16 05:29 White Blood Count 4.83 K/uL Red Blood Count 2.47 M/uL Hemoglobin 7.9 g/dL Hematocrit 22.8 % Mean Corpuscular Volume 92.3 fL Mean Corpuscular Hemoglobin 32.0 pg Mean Corpuscular Hemoglobin Concent 34.6 g/dl Platelet Count 59 K/uL Mean Platelet Volume 10.2 fL Neutrophils (%) (Auto) 53.3 % Lymphocytes (%) (Auto) 29.0 % Monocytes (%) (Auto) 12.4 % Eosinophils (%) (Auto) 4.3 % Basophils (%) (Auto) 0.8 % Neutrophils # (Auto) 2.57 K/uL Lymphocytes # (Auto) 1.40 K/uL Monocytes # (Auto) 0.60 K/uL Eosinophils # (Auto) 0.21 K/uL Basophils # (Auto) 0.04 K/uL RDW Standard Deviation 51.5 fL RDW Coefficient of Variation 15.9 % Immature Granulocyte % (Auto) 0.2 % Immature Granulocyte # (Auto) 0.01 K/uL Polychromasia 1+ Basophilic Stippling 1+ Sodium Level 135 mmol/L Potassium Level 3.5 mmol/L Chloride Level 101 mmol/L Carbon Dioxide Level 28 mmol/L Anion Gap 6.0 mmol/L Blood Urea Nitrogen 12 mg/dl Creatinine 0.90 mg/dl Est Creatinine Clear Calc Drug Dose 78.9 ml/min Estimated GFR () 99.9 Estimated GFR (Non- 86.2 BUN/Creatinine Ratio 12.9 Random Glucose 80 mg/dl Calcium Level 7.3 mg/dl Total Bilirubin 0.8 mg/dl Aspartate Amino Transf (AST/SGOT) 54 U/L Alanine Aminotransferase (ALT/SGPT) 35 U/L Alkaline Phosphatase 49 U/L Total Protein 5.2 gm/dl Albumin 2.1 gm/dl Globulin 3.1 gm/dl Albumin/Globulin Ratio 0.7 (Digna Lundy, JUNIOR) Assessment and Plan 71 y/o male with PMHx of ETOH Abuse, HTN, HLD, S/P Colon Resection (denies cancer), and possible H/O PUD who presents to the ED by EMS with persistent SOB and melena/hemoptysis. Code Purple on 12/20 after EGD. ICU was involved however pt aroused shortly after code was called and no interventions were required. Acute Blood Loss Anemia 2/2 Hemoptysis and Melena: - Transfused 1 unit 12/21, Hgb - EGD with gastritis - no evidence of portal gastropathy - appreciate GI recs - CT Abd/pelvis and portal dopplers - evidence of multiple lesions likely cysts in liver, hepatosplenomegaly would explain thrombocytopenia. - Now off octreotide and Protonix bolus/gtt, continue pantoprazole 40 mg BID - Ceftriaxone 2 g IV daily, got 5 days, for possibility of sepsis from esophageal varices - since negative will dc today. Pt is greatly improved. - hemachromatosis DNA pending A. Flutter with RVR and SVT/afib: currently NSR - Received Adenosine and Cardizem with conversion without need for cardioversion upon admission - High risk for bleeding given above, will avoid anticoagulation Elevated Troponin: - Likely demand ischemia from SVT/A Flutter RVR and acute blood loss - Echocardiogram noted for EF >70%, elevated RVP at 30-40% Elevated Lactic Acid: - Improved now - Was placed on ceftriaxone empirically, finished 5 day course. HAYLEY: - Cr. 0.90, HAYLEY resolved - Follow with am labs ETOH Abuse: - Cessation encouraged, - Continue thiamine, MVI daily - Librium now trended down to 5 mg Q12H, continue taper, PRN Ativan - Liver US neg - CT AP neg for cirrhosis, portal vein is patent, hepatic cysts noted - Elevated INR, dosing PO vit K as needed. Likely related to above Tobacco use: - Cessation encouraged at bedside, continue Nicotine patch - Pt does not carry dx of COPD or have hx of inhaler use, however cough and mild wheezing - IS and nebs started 12/23, will need formal PFTs as outpt AAA noted at 5.1cm - CT abd/pelvis reviewed: 5.1 x 4.9 cm in AP and transverse dimension. This is seen overlying of approximately 9 cm terminating at the iliac bifurcation. There is also mild aneurysmal dilatation of the left common iliac artery, 1.7 cm. Extensive vascular calcifications are present throughout. HTN: - Hold home medication of Lisinopril, Atenolol, and HCTZ - Nadolol 80mg daily HLD: - Hold simvastatin DVT Prophylaxis: FRANC/SCDS Code Status: FULL RESUSCITATION Disposition: PT/OT evals placed, CM to assist with rehab options, 2 step ordered , discharge likely within 1-2 days (Digna Lundy, JUNIOR) PA Physician Supervision Note: I interviewed and examined the patient. Discussed with Digna Lundy PAC and agree with findings and plan as documented in the note. Any exceptions or clarifications are listed here: None Patient here with GI bleed from gastritis history of A. fib RVR. Patient is doing well. Fairly significantly charles course initially requiring intensive care unit monitoring. He acute blood loss anemia and was transfused. He improves daily and is tolerating a regular diet Vital signs are stable but patient is fatigued, he admits to [facility] needing rehab and is being assessed for an inpatient stay Cardiac exam remains regular without murmurs lungs continue to be clear without wheezes Abdomen nontender NABS Supportive care for GI bleed continue PPI avoid for anticoagulation for A. fib, at least 6 weeks of ppi PT OT evaluation suggests inpatient rehabilitation especially since lives alone A. fib converted remains in sinus rhythm continue nadolol Elevated troponin likely demand ischemia from rapid rate Alcohol withdrawal tapered doses of librium Documented By: Homer Sepulveda (Homer Sepulveda M.D.)
[2016-12-26 05:02] VITALS: BP 132/80; PULSE 73; TEMP 36.8; O2SAT 92
[2016-12-26 07:25] VITALS: PULSE 72; O2SAT 94
[2016-12-26] MEDS: ALBUT/IPRATROP 3MG/0.5MG NEB 3 ML VIAL INH SCH ×2 (07:29→11:12)
[2016-12-26 07:30] VITALS: BP 136/70; PULSE 72; TEMP 36.8; O2SAT 94
[2016-12-26 07:48] LABS: BUN/CREATININE RATIO 10.1 (10-20); CALCIUM 7.6 mg/dl (8.5-10.1); CREATININE 0.91 mg/dl (0.60-1.40); POTASSIUM 3.6 mmol/L (3.5-5.1)
[2016-12-26] MEDS: THIAMINE HCL 100 MG TAB PO SCH (07:48)
[2016-12-26] MEDS: PANTOprazole SOD 40 MG TAB PO SCH (07:48)
[2016-12-26] MEDS: MULTIVITAMIN TAB PO SCH (07:48)
[2016-12-26] MEDS: NADOLOL 40 MG TAB PO SCH (07:48)
[2016-12-26] MEDS: CEROVITE ADV FORMULA TAB PO SCH (07:48)
[2016-12-26] MEDS: NICOTINE 14 MG/24 HR TDSY TD SCH (07:49)
[2016-12-26 07:50] LABS: HEMATOCRIT 23.9 % (42-52); MEAN CELL VOLUME 94.5 fL (80-100); MEAN CORPUSCULAR HEMOGLOBIN 32.8 pg (25-34); MEAN CORPUSCULAR HGB CONC 34.7 g/dl (32-36); RED BLOOD COUNT 2.53 M/uL (4.7-6.1); WHITE BLOOD COUNT 3.91 K/uL (4.8-10.8)
[2016-12-26 07:51] LABS: ALB/GLOB RATIO 0.6 (0.9-2)
[2016-12-26 08:01] LABS: MEAN PLATELET VOLUME 10.1 fL (7.4-10.4); PLATELET COUNT 66 K/uL (130-400)
[2016-12-26 08:03] LABS: BASO % 0.8 %; BASO ABS # 0.03 K/uL (0-0.2); COMPLETE YES; EOS % 3.6 %; IG% 0.5 %; LYMPH % 24.6 %; LYMPH ABS # 0.96 K/uL (1.2-3.4); MONO % 15.1 %; NEUT % 55.4 %
[2016-12-26 11:12] VITALS: PULSE 77; O2SAT 95
[2016-12-26 11:16] VITALS: BP 146/70; PULSE 76; TEMP 37; O2SAT 95
[2016-12-26] MEDS ORDERED: CRG40 PO (11:33)
[2016-12-26] MEDS ORDERED: MULT-890 PO (11:33)
[2016-12-26] MEDS ORDERED: PRT40 PO (11:33)
[2016-12-26] MEDS ORDERED: THM100 PO (11:33)
[2016-12-26] MEDS ORDERED: RBTUDL5 PO (11:33)
[2016-12-26] MEDS ORDERED: FLV1 PO (11:33)
[2016-12-26] MEDS ORDERED: NICO14DI5 TD (11:33)
--- NOTE | 2016-12-26 11:49 | Discharge Instructions ---
Discharge Instructions Date of Service Dec 26, 2016. Admission Reason for Admission: Gi Bleed Discharge Discharge Diagnosis / Problem: Gastrointestinal bleed Discharge Goals Goal(s): Decrease discomfort, Improve function, Increase independence, Improve disease control, Improve nutritional status, Prevent Disease Progression Activity Recommendations Activity Limitations: per Instructions/Follow-up section Lifting Limitations: no more than 25 pounds, gradually increase as tolerated Exercise/Sports Limitations: rest today, gradually increase as tolerated May Resume Sexual Activity: after follow-up appointment Shower/Bathe: no limitations Driving or Machine Use: After being seen by your PCP . Instructions / Follow-Up Instructions / Follow-Up You were admitted to [facility] with loss of consciousness and diagnosed with a gastrointestinal bleed. - You initially were in an irregular heart rhythm called atrial fibrillation with rapid heart rate, this converted to normal rhythm and you did not require medications to convert the heart rate. - You drink alcohol so were placed on a medication to help with withdrawal symptoms, you have been weaned off this. - DO NOT DRINK ALCOHOL! - During your stay here you were treated with intravenous fluids, blood replacement, antibiotics, supportive therapy, and vitamins/mineral replacement. - Imaging studies which were completed include EGD, and were abnormal showing possible diffuse gastritis, no varices, and suspicion of hepato-gastropathy ( liver involvement) Medications: - Aspirin has been held. Please discuss restarting this with your PCP at your appointment next week. - You have been started on pantoprazole, an acid bhupendra, to help prevent gastrointestinal bleed. - Continue taking all other medications as prescribed. Follow up with your PCP within 1 week. Current Hospital Diet Patient's current hospital diet: Regular Diet Discharge Diet Recommended Diet: Regular Diet Procedures Procedures Performed: Esophagogastroduodenoscopy Pending Studies Studies pending at discharge: no Laboratory Results Hemoglobin A1c Test 12/20/16 05:40 Range/Units Estimated Average Glucose 94 mg/dl Hemoglobin A1c 4.9 4.5-5.6 % Medical Emergencies . Who to Call and When: Medical Emergencies: If at any time you feel your situation is an emergency, please call 911 immediately. . Non-Emergent Contact Non-Emergency issues call your: Primary Care Provider Call Non-Emergent contact if: you have a fever, temperature is above 100.5, temperature is above 101, your pain is not controlled, your pain is worsening, you have any medication questions develop chest pain, shortness of breath, abdominal pain, dark or tarry stools, vomiting, lightheadedness, dizziness, or if you have any other concerns regarding your health. . Past History Medical & Surgical History: (1) GI bleed (2) Atrial flutter with rapid ventricular response (3) HTN (hypertension) (4) HLD (hyperlipidemia) (5) Gout . "Provider Documentation" section prepared by Guera Lundy. . VTE Core Measure Inpt VTE Proph given/why not?: TKunal Stockings, SCD's
[2016-12-26 12:24] VITALS: BP 146/70; PULSE 76; TEMP 37; O2SAT 95
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
== END 2016-12-26 15:05 | disposition home health service (06) | DRG 378 ==
LOC: EDBD 05:12 → C.EDB 05:13 → C.MSICU 07:34 → ENRESERV 07:56 → C.MED 12-22 13:34
PROVIDERS: ADMIT Family Medicine; ATTEND Internal Medicine
PROC: 0DJ08ZZ Inspection of Upper Intestinal Tract, Via Natural or Artificial Opening Endoscopic (ICD-10-PCS; principal; 2016-12-20 09:30)
DX: K92.2 Gastrointestinal hemorrhage, unspecified (principal); I48.92 Unspecified atrial flutter; D62 Acute posthemorrhagic anemia; N17.9 Acute kidney failure, unspecified; M10.9 Gout, unspecified; E78.5 Hyperlipidemia, unspecified; I10 Essential (primary) hypertension; Z93.3 Colostomy status; Z79.82 Long term (current) use of aspirin

== ENCOUNTER → 2017-01-31 | Outpatient (CLI) | payer OTHER ==
[~2017-01-31] MED LIST: ALLO300T2 PO; ATEN50TA8 PO; FLV1 PO; HYDR25TA4 PO; LISI-461 PO; MULT-890 PO; NICO14DI5 TD; PRT40 PO; RBTUDL5 PO; SIMV20TA2 PO; THM100 PO
[2017-01-31 11:55] LABS: HEMATOCRIT 31.6 % (42-52); MEAN CELL VOLUME 91.6 fL (80-100); MEAN CORPUSCULAR HEMOGLOBIN 31.3 pg (25-34); MEAN CORPUSCULAR HGB CONC 34.2 g/dl (32-36); RED BLOOD COUNT 3.45 M/uL (4.7-6.1); WHITE BLOOD COUNT 5.15 K/uL (4.8-10.8)
[2017-01-31 12:02] LABS: URINE APPEARANCE CLEAR (CLEAR); URINE BILIRUBIN NEG (NEG); URINE COLOR DK YELLOW; URINE NITRITE NEG (NEG); URINE PH 5.5 (4.5-7.5); URINE SPECIFIC GRAVITY 1.021 (1.000-1.030); UROBILINOGEN NEG (NEG)
[2017-01-31 12:08] LABS: MANUAL MICROSCOPIC REQUIRED? NO; REVIEW REQ? NO
[2017-01-31 12:29] LABS: ALT/SGPT 23 U/L (12-78); BLOOD UREA NITROGEN 12 mg/dl (7-18); BUN/CREATININE RATIO 9.8 (10-20); CALCIUM 8.7 mg/dl (8.5-10.1); CARBON DIOXIDE 26 mmol/L (21-32); CHLORIDE 107 mmol/L (98-107); CHOLESTEROL 90 mg/dl (0-200); GLUCOSE 90 mg/dl (70-99); POTASSIUM 3.7 mmol/L (3.5-5.1); SODIUM 140 mmol/L (136-145); URIC ACID 3.8 mg/dl (2.6-7.2)
[2017-01-31 12:40] LABS: ALB/GLOB RATIO 0.7 (0.9-2); ALKALINE PHOSPHATASE 70 U/L (45-117); AST/SGOT 43 U/L (15-37); HDL CHOLESTEROL 30 mg/dl; LDL CHOLESTEROL CALCULATED 43 mg/dl; TRIGLYCERIDES 87 mg/dl (0-150); VERY LOW DENSITY LIPOPROT CALC 17 mg/dl
[2017-01-31 12:47] LABS: PLATELET COUNT 91 K/uL (130-400)
[2017-01-31 12:50] LABS: BASO % 2.1 %; BASO ABS # 0.11 K/uL (0-0.2); COMPLETE YES; EOS % 6.6 %; IG% 0.2 %; LYMPH % 31.5 %; LYMPH ABS # 1.62 K/uL (1.2-3.4); MONO % 9.5 %; NEUT % 50.1 %; PLT ESTIMATE DECREASED
--- NOTE | 2017-02-12 10:57 | CODING QUERY MEDICAL NECESSITY ---
CQSUPPORTING DIAGNOSIS NEEDED A supporting diagnosis is required for the test/procedure performed on this patient in order for us to be reimbursed by the patient's insurance. Please provide a supporting diagnosis for the following test/procedure listed below next to the test name along with your signature. *If there is no additional diagnosis for this patient that would support the following test/procedure please document that below next to the test/procedure. Test(s)/Procedure(s) that require a supporting diagnosis: DOS 01/31/17 VITAMIN D TEST VITAMIN B12 TEST Provider Signature: Date: Thank you Delores Julio Health Information Management Once completed, please kindly fax back to [phone] For questions please call [phone]
== END | disposition home or self-care (01) ==
LOC: C.LAB 11:20
PROVIDERS: ATTEND Physician Assistant
DX: M10.9 Gout, unspecified (principal); I10 Essential (primary) hypertension; Z87.19 Personal history of other diseases of the digestive system; E78.5 Hyperlipidemia, unspecified; F10.20 Alcohol dependence, uncomplicated

== ENCOUNTER → 2017-05-27 | Outpatient (CLI) | payer OTHER ==
[2017-05-27 18:28] LABS: BASO % 1.4 %; BASO ABS # 0.09 K/uL (0-0.2); COMPLETE YES; EOS % 3.7 %; HEMATOCRIT 36.3 % (42-52); IG% 0.2 %; LYMPH % 22.7 %; LYMPH ABS # 1.47 K/uL (1.2-3.4); MEAN CELL VOLUME 87.5 fL (80-100); MEAN CORPUSCULAR HEMOGLOBIN 31.3 pg (25-34); MEAN CORPUSCULAR HGB CONC 35.8 g/dl (32-36); MEAN PLATELET VOLUME 10.9 fL (7.4-10.4); MONO % 12.2 %; NEUT % 59.8 %; PLATELET COUNT 102 K/uL (130-400); RED BLOOD COUNT 4.15 M/uL (4.7-6.1); WHITE BLOOD COUNT 6.49 K/uL (4.8-10.8)
== END | disposition home or self-care (01) ==
LOC: C.LABMFLN 13:40
PROVIDERS: ATTEND Physician Assistant
DX: D64.9 Anemia, unspecified (principal); Z12.5 Encounter for screening for malignant neoplasm of prostate